=== PATIENT | female | born 1940 | race Caucasian/White ===

== ENCOUNTER 2017-09-28 08:00 | Outpatient (CLI) | payer MEDICARE, OTHER ==
[2017-09-28 19:00] LABS: BASOPHILS # (AUTO) 0.1 10^3/uL (0.0-0.1); BASOPHILS % (AUTO) 0.7 %; EOSINOPHILS # (AUTO) 0.2 10^3/uL (0.0-0.7); EOSINOPHILS % (AUTO) 2.6 %; HGB - HEMOGLOBIN 12.6 g/dL (12.0-16.0); LYMPHOCYTES # (AUTO) 1.7 10^3/uL (1.5-3.5); LYMPHOCYTES % (AUTO) 21.6 %; MEAN CORPUSCULAR HEMOGLOBIN 29.8 pg (27.0-31.0); MEAN CORPUSCULAR VOLUME 92.9 fL (81.0-99.0); MEAN PLATELET VOLUME 7.7 fL (7.9-10.8); MONOCYTES # (AUTO) 0.4 10^3/uL (0.0-1.0); MONOCYTES % (AUTO) 5.5 %; NEUTROPHILS # (AUTO) 5.4 10^3/uL (1.5-6.6); NEUTROPHILS % (AUTO) 69.6 %; PLT - PLATELET COUNT 277 10^3/uL (130-450); RED BLOOD COUNT 4.23 10^6/uL (4.20-5.40); WHITE BLOOD COUNT 7.7 x10^3/uL (4.8-10.8)
[2017-09-28 19:25] LABS: ALBUMIN 4.1 g/dL (3.2-5.5); ALBUMIN/GLOBULIN RATIO 1.6 (1.0-2.2); ALKALINE PHOSPHATASE 51 IU/L (42-121); ALT ALANINE AMINOTRANSFERASE 12 IU/L (10-60); AST ASPARTATE AMINOTRANSFERASE 14 IU/L (10-42); BILIRUBIN,TOTAL 0.4 mg/dL (0.2-1.0); BUN - BLOOD UREA NITROGEN 10 mg/dL (6-20); CALCIUM 9.1 mg/dL (8.5-10.3); CARBON DIOXIDE - CO2 27 mmol/L (21-32); CHLORIDE 108 mmol/L (101-111); CHOL/HDL RATIO 2.9 (<4.4); CHOLESTEROL 154 mg/dL; CREATININE 0.6 mg/dL (0.4-1.0); GFR - MDRD 97 (>89); GLUCOSE 102 mg/dL (70-100); HDL CHOLESTEROL 53 mg/dL; LDL CHOLESTEROL,CALCULATED 73 mg/dL; LDL/HDL RATIO 1.4 (<4.4); SODIUM 142 mmol/L (135-145); TOTAL PROTEIN 6.7 g/dL (6.7-8.2); VLDL CHOLESTEROL 28 mg/dL
[2017-09-28 19:29] LABS: THYROID STIMULATING HORMONE < 0.08 uIU/mL (0.34-5.60)
[2017-09-28 19:36] LABS: HEMOGLOBIN A1C 0.88 g/dL; HEMOGLOBIN A1C % 7.9 % (4.6-6.2)
[2017-09-28 20:21] LABS: FREE T4 (FREE THYROXINE) 1.08 ng/dL (0.58-1.64)
== END 2017-09-28 08:01 | disposition home or self-care (01) ==
LOC: LAB.WCP 08:00
PROVIDERS: ATTEND Family Medicine
DX: I73.9 Peripheral vascular disease, unspecified (principal); I65.29 Occlusion and stenosis of unspecified carotid artery; I10 Essential (primary) hypertension; E11.9 Type 2 diabetes mellitus without complications; J44.9 Chronic obstructive pulmonary disease, unspecified
CPT/HCPCS: 36415; 80053; 80061; 82043; 83036; 83721; 84439; 84443; 85025

== ENCOUNTER 2017-12-07 16:53 | Outpatient (CLI) | payer MEDICARE, OTHER ==
--- NOTE | 2017-12-08 09:32 | Ultrasound Report ---
EXAM: PELVIC ULTRASOUND EXAM DATE: 12/07/2017 06:17 PM. CLINICAL HISTORY: Follow-up left ovarian cyst. History of right oophorectomy. COMPARISON: None. TECHNIQUE: Realtime transabdominal pelvic scan performed to identify the uterus and adnexa and as an overview of other pelvic structures, followed by transvaginal scan to provide greater detail of the u terus and adnexa, with static image documentation. FINDINGS: Uterus: 6.3 x 3.3 x 2.5 cm, volume 27 cc. Retroverted position. Normal overall size and echotexture. Masses: There is a fundal intramural fibroid measuring 0.8 x 0.6 x 0.5 cm. Endometrium: 2.1 mm. Normal. Cervix: Unremarkable. Right Ovary: Surgically absent. No right adnexal mass visualized. Left Ovary: 5.3 x 4.1 x 3.8 cm, volume 43 cc. Normal echotexture and blood flow. There is a left ovar mary jo simple cyst measuring 4.1 x 3.9 x 5.1 cm. Free Fluid: None. Other: None. IMPRESSION: 1. Left ovarian simple cyst measuring up to 5.1 cm in diameter. Annual ultrasound follow-up is recomm ended for a postmenopausal patient per [employer] of [employer] in Ultrasound guidelines. 2. Status post right oophorectomy by history. No right adnexal mass visualized. 3. A single subcentimeter intramural fibroid is visualized. [facility] Referring Provider Line: [phone] SITE ID: [id number]
== END 2017-12-07 16:54 | disposition home or self-care (01) ==
LOC: DI 16:53
PROVIDERS: ATTEND Family Medicine
DX: N83.292 Other ovarian cyst, left side (principal); D25.1 Intramural leiomyoma of uterus; Z90.721 Acquired absence of ovaries, unilateral
CPT/HCPCS: 76830; 76856

== ENCOUNTER 2017-12-27 08:00 | Outpatient (CLI) | payer MEDICARE, OTHER ==
[2017-12-27 12:45] LABS: ALBUMIN 4.1 g/dL (3.2-5.5); ALBUMIN/GLOBULIN RATIO 1.4 (1.0-2.2); BILIRUBIN,TOTAL 0.5 mg/dL (0.2-1.0); CALCIUM 9.6 mg/dL (8.5-10.3); CREATININE 0.6 mg/dL (0.4-1.0); TOTAL PROTEIN 7.1 g/dL (6.7-8.2)
[2017-12-27 12:57] LABS: HB2 TOTAL 14.7 g/dL; HEMOGLOBIN A1C 0.99 g/dL; HEMOGLOBIN A1C % 8.3 % (4.6-6.2)
== END 2017-12-27 08:01 ==
LOC: LAB.WCP 08:00
PROVIDERS: ATTEND Family Medicine
DX: H61.23 Impacted cerumen, bilateral (principal); E11.9 Type 2 diabetes mellitus without complications; I10 Essential (primary) hypertension; J44.9 Chronic obstructive pulmonary disease, unspecified
CPT/HCPCS: 36415; 80053; 83036

== ENCOUNTER 2018-01-23 15:39 | Outpatient (CLI) | payer MEDICARE, OTHER ==
--- NOTE | 2018-01-30 09:36 | Ultrasound Report ---
Procedure Date: 01/24/2018 Accession Number: [id number] / [id number] Procedure: US - Duplex Lwr Ext Arterial Bilat CPT Code: FULL RESULT: EXAM: BILATERAL LOWER EXTREMITY ARTERIAL DOPPLER ULTRASOUND EXAM DATE: 01/23/2018 04:42 PM. CLINICAL HISTORY: Peripheral vascular disease, claudication bilateral. COMPARISON: None. TECHNIQUE: Real-time sonographic vascular imaging was performed by the bobbin loose end finder, utilizing color-flow, Doppler flow, and spectral analysis. Multiple area representative static images were saved for review. FINDINGS: Right lower extremity: Within the mid femoral artery there is a focal stenosis due to what appears to be soft plaque causing approximately 50% stenosis by ordaz scale and color Doppler (series 1 images 11 and 12). However, velocity increases at this point to 370 cm/s suggesting greater than 50% stenosis by spectral Doppler. Multifocal calcific plaque is present throughout the remainder of the right lower extremity arteries without evidence of additional significant focal stenosis. There is abnormal monophasic waveform in the dorsalis pedis artery on the right which appears low resistance, suggesting possible inflammation or infection of the right lower extremity. Left lower extremity: Normal waveforms and velocity throughout the visualized arteries. No evidence of a significant (>50%) focal stenosis with multifocal soft and calcific plaque present. Right leg: FARM EQUIPMENT MECHANIC: PSV 101 cm/sec. Biphasic waveform. SFA P: PSV 72 cm/sec. Biphasic waveform. SFA M: PSV 370 cm/sec. Monophasic waveform. SFA D: PSV 98 cm/sec. Biphasic waveform. PFA: PSV 67 cm/sec. Biphasic waveform. Popliteal: PSV 58 cm/sec. Biphasic waveform. NEHEMIAS: PSV 58 cm/sec. Biphasic waveform. ORGANIC LAB WORKER: PSV 64 cm/sec. Biphasic waveform. Peroneal: PSV 45 cm/sec. Biphasic waveform. DPA: PSV 7 cm/sec. Monophasic waveform. Left leg: FARM EQUIPMENT MECHANIC: PSV 123 cm/sec. Biphasic waveform. SFA P: PSV 129 cm/sec. Biphasic waveform. SFA M: PSV 115 cm/sec. Monophasic waveform. SFA D: PSV 153 cm/sec. Biphasic waveform. PFA: PSV 74 cm/sec. Biphasic waveform. Popliteal: PSV 91 cm/sec. Biphasic waveform. NEHEMIAS: PSV 59 cm/sec. Biphasic waveform. ORGANIC LAB WORKER: PSV 84 cm/sec. Biphasic waveform. Peroneal: PSV 37 cm/sec. Biphasic waveform. DPA: PSV 37 cm/sec. Biphasic waveform. IMPRESSION: 1. Focal soft plaque in the mid right femoral artery causing greater than 50% stenosis by spectral Doppler, though appearing 50% or less by color and grayscale ultrasound. 2. Slow flow in the right dorsalis pedis artery with abnormal monophasic waveform either due to the poor flow or possible inflammation or infection. 3. No evidence of a significant stenosis of the left lower extremity arteries. [facility]
== END 2018-01-23 15:40 | disposition home or self-care (01) ==
LOC: DI 15:39
PROVIDERS: ATTEND Family Medicine
DX: I70.201 Unspecified atherosclerosis of native arteries of extremities, right leg (principal)
CPT/HCPCS: 93925

== ENCOUNTER 2018-01-28 08:11 | Emergency (ER) | payer MEDICARE, OTHER ==
[2018-01-28 08:52] LABS: BILIRUBIN,URINE NEGATIVE (NEGATIVE); GLUCOSE, URINE (UA) NEGATIVE (NEGATIVE); KETONES,URINE (UA) NEGATIVE (NEGATIVE); LEUKOCYTE ESTERASE, URINE SMALL (NEGATIVE); NITRITE,URINE NEGATIVE (NEGATIVE); OCCULT BLOOD,URINE NEGATIVE (NEGATIVE); PROTEIN,URINE NEGATIVE (NEGATIVE); UROBILINOGEN,URINE 0.2 (NORMAL) E.U./dL (NORMAL)
[2018-01-28 08:54] LABS: BASOPHILS # (AUTO) 0.1 10^3/uL (0.0-0.1); BASOPHILS % (AUTO) 0.8 %; EOSINOPHILS # (AUTO) 0.3 10^3/uL (0.0-0.7); HGB - HEMOGLOBIN 12.8 g/dL (12.0-16.0); LYMPHOCYTES # (AUTO) 1.3 10^3/uL (1.5-3.5); MEAN CORPUSCULAR HEMOGLOBIN 30.3 pg (27.0-31.0); MEAN CORPUSCULAR HGB CONC 32.6 g/dL (32.0-36.0); MEAN PLATELET VOLUME 7.2 fL (7.9-10.8); MONOCYTES # (AUTO) 0.8 10^3/uL (0.0-1.0); MONOCYTES % (AUTO) 5.3 %; NEUTROPHILS % (AUTO) 82.9 %; PLT - PLATELET COUNT 249 10^3/uL (130-450); RED BLOOD COUNT 4.23 10^6/uL (4.20-5.40); RED CELL DISTRIBUTION WIDTH 13.3 % (12.0-15.0); WHITE BLOOD COUNT 14.5 x10^3/uL (4.8-10.8)
--- NOTE | 2018-01-28 08:57 | ED Physician Documentation ---
History of Present Illness - Stated complaint Stated Complaint: H/A - Chief complaint Chief Complaint: General - Additonal information Additional information: hx from pt 77 female to ER with invol jerking movements all night affected all limbs not rigors no fever not seizures no new meds or changing meds no DUQUE CP AP no fever baseline cough no abd pain urinary feq not new no focal numbness or weakness no fall diabetic and FDBD was 70s this AM hx same sx with UTI and needed admit in Jul 2017 in [place] sx were present all night but resolved now Review of Systems Constitutional: denies: Fever, Chills Cardiac: denies: Chest pain / pressure Respiratory: reports: Cough (baseline). denies: Dyspnea GI: denies: Abdominal Pain : reports: Frequency. denies: Dysuria Neurologic: denies: Focal weakness, Numbness, Headache, Head injury Endocrine: reports: Easy bruising / bleeding (plavix and asa) Immunocompromised: denies: Immunocompromised PD PAST MEDICAL HISTORY - Past Medical History Past Medical History: Yes Cardiovascular: Hypertension, High cholesterol Endocrine/Autoimmune: Type 2 diabetes Musculoskeletal: Osteoarthritis - Present Medications Home Medications: Ambulatory Orders Medication Instructions Recorded Confirmed Aspirin [Adult Aspirin] 81 mg 01/28/18 Cephalexin [Keflex] 500 mg PO Q6H #28 capsule 01/28/18 Clopidogrel [Plavix] 75 mg 01/28/18 Insulin Glargine [Lantus Solostar] 100 unit 01/28/18 Lisinopril 2.5 mg 01/28/18 Oxybutynin [Ditropan] 5 mg 01/28/18 - Allergies Allergies/Adverse Reactions: Allergies Allergy/AdvReac Type Severity Reaction Status Date / Time sulfamethoxazole AdvReac Severe Anaphylaxis Verified 01/28/18 08:20 [From Bactrim] trimethoprim [From Bactrim] AdvReac Severe Anaphylaxis Verified 01/28/18 08:20 - Social History Does the pt smoke?: No Smoking Status: Never smoker Does the pt drink ETOH?: No Does the pt have substance abuse?: No PD ED PE NORMAL - Vitals Vital signs reviewed: Yes - General General: Alert and oriented X 3 - HEENT HEENT: PERRL - Neck Neck: Supple, no meningeal sign - Cardiac Cardiac: RRR - Respiratory Respiratory: No respiratory distress, Clear bilaterally - Abdomen Abdomen: Soft - Derm Derm: Normal color - Neuro Neuro: Alert and oriented X 3, kardex clerk 2-12 intact, No motor deficit, No sensory deficit, Normal speech, Other Eye Opening: Spontaneous Motor: Obeys Commands Verbal: Oriented GCS Score: 15 Results - Vitals Vitals: Vital Signs - 24 hr 01/28/18 01/28/18 08:15 09:48 Temperature 36.2 C L Heart Rate 92 74 Respiratory 16 16 Rate Blood Pressure 126/75 141/88 H O2 Saturation 97 98 Oxygen O2 Source Room air - Labs Labs: Laboratory Tests 01/28/18 01/28/18 01/28/18 08:38 08:44 08:44 WBC 14.5 H RBC 4.23 Hgb 12.8 Hct 39.3 MCV 93.0 MCH 30.3 MCHC 32.6 RDW 13.3 Plt Count 249 MPV 7.2 L Neut # (Auto) 12.0 H Lymph # (Auto) 1.3 L Toole # (Auto) 0.8 Eos # (Auto) 0.3 Baso # (Auto) 0.1 Absolute Nucleated RBC 0.00 Nucleated RBC % 0.0 Manual Slide Review Indicated Platelet Estimate NORMAL (130-450,000) Platelet Morphology NORMAL APPEARANCE RBC Morph Micro Appear NORMAL APPEARANCE Sodium 138 Potassium 3.5 Chloride 103 Carbon Dioxide 27 Anion Gap 8.0 BUN 11 Creatinine 0.6 Estimated GFR (MDRD) 97 Glucose 84 POC Whole Bld Glucose Calcium 9.4 Troponin I Urine Color YELLOW Urine Clarity HAZY Urine pH 6.0 Ur Specific [place] 1.015 Urine Protein NEGATIVE Urine Glucose (UA) NEGATIVE Urine Ketones NEGATIVE Urine Occult Blood NEGATIVE Urine Nitrite NEGATIVE Urine Bilirubin NEGATIVE Urine Urobilinogen 0.2 (NORMAL) Ur Leukocyte Esterase SMALL H Urine RBC 0-5 Urine WBC 11-25 H Ur Squamous Epith Cells MOD Squamous H Urine Bacteria Few Ur Microscopic Review INDICATED Urine Culture Comments NOT INDICATED 01/28/18 01/28/18 01/28/18 08:44 09:59 11:10 WBC RBC Hgb Hct MCV MCH MCHC RDW Plt Count MPV Neut # (Auto) Lymph # (Auto) Toole # (Auto) Eos # (Auto) Baso # (Auto) Absolute Nucleated RBC Nucleated RBC % Manual Slide Review Platelet Estimate Platelet Morphology RBC Morph Micro Appear Sodium Potassium Chloride Carbon Dioxide Anion Gap BUN Creatinine Estimated GFR (MDRD) Glucose POC Whole Bld Glucose 78 115 H Calcium Troponin I < 0.04 Urine Color Urine Clarity Urine pH Ur Specific Republic Urine Protein Urine Glucose (UA) Urine Ketones Urine Occult Blood Urine Nitrite Urine Bilirubin Urine Urobilinogen Ur Leukocyte Esterase Urine RBC Urine WBC Ur Squamous Epith Cells Urine Bacteria Ur Microscopic Review Urine Culture Comments PD MEDICAL DECISION MAKING - ED course ED course: sx subsided labs fine except probable UTI and slightly low blood sugar - given food was admitted for similar befor but at this point afebrile, nl BP and HR, does not appear spetic ect, feel safe to dc on ab for UTI with daughter to help care for her - Sepsis Event Vital Signs: Vital Signs - 24 hr 01/28/18 01/28/18 08:15 09:48 Temperature 36.2 C L Heart Rate 92 74 Respiratory 16 16 Rate Blood Pressure 126/75 141/88 H O2 Saturation 97 98 Oxygen O2 Source Room air Departure - Departure Disposition: 01 Home, Self Care Clinical Impression: UTI (urinary tract infection) Qualifiers: Urinary tract infection type: site unspecified Hematuria presence: without hematuria Qualified Code(s): N39.0 - Urinary tract infection, site not specified Condition: Good Instructions: ED UTI Cystitis Female Follow-Up: Gianfranco Castro MD [Primary Care Provider] - (this week for a recheck unless completely better) Prescriptions: Cephalexin [Keflex] 500 mg PO Q6H #28 capsule Comments: Please watch your blood sugar carefully - you were a little it low when you arrived in the ER today which may have contributed to your symptoms. Please follow up with Dr Castro for a recheck this week unless completely better
[2018-01-28 09:01] LABS: CALCIUM 9.4 mg/dL (8.5-10.3); CREATININE 0.6 mg/dL (0.4-1.0)
[2018-01-28 09:02] LABS: CLARITY,URINE HAZY (CLEAR)
[2018-01-28 09:11] LABS: BACTERIA,URINE Few /HPF (None Seen); RBC,URINE 0-5 /HPF (0-5); SQUAMOUS EPITHELIAL CELL,UR MOD Squamous (<= Few)
[2018-01-28 09:13] LABS: PLATELET ESTIMATE, MANUAL NORMAL (130-450,000) (NORMAL); PLATELET MORPHOLOGY NORMAL APPEARANCE (NORMAL); RBC MORPHOLOGY (MULTIPLE) NORMAL APPEARANCE (NORMAL)
[2018-01-28] MEDS ORDERED: cephALEXin 250 MG CAPSULE PO STA (09:53)
[2018-01-28 11:33] VITALS: BP 109/78
== END 2018-01-28 11:34 | disposition home or self-care (01) ==
LOC: ED 08:11
DX: N39.0 Urinary tract infection, site not specified (principal); E11.9 Type 2 diabetes mellitus without complications; I10 Essential (primary) hypertension; E78.00 Pure hypercholesterolemia, unspecified; M19.90 Unspecified osteoarthritis, unspecified site; Z79.82 Long term (current) use of aspirin; Z79.02 Long term (current) use of antithrombotics/antiplatelets
CPT/HCPCS: 36415; 80048; 81001; 84484; 85025; 99283; A9270; 81003; 87086

== ENCOUNTER 2018-03-24 10:50 | Outpatient (CLI) | payer MEDICARE, OTHER ==
[2018-03-24 19:40] LABS: HB2 TOTAL 13.6 g/dL; HEMOGLOBIN A1C 0.88 g/dL; HEMOGLOBIN A1C % 8.1 % (4.6-6.2)
[2018-03-24 19:57] LABS: ALBUMIN 3.8 g/dL (3.2-5.5); ALBUMIN/GLOBULIN RATIO 1.2 (1.0-2.2); BILIRUBIN,TOTAL 0.6 mg/dL (0.2-1.0); CALCIUM 9.2 mg/dL (8.5-10.3); CREATININE 0.6 mg/dL (0.4-1.0); TOTAL PROTEIN 6.9 g/dL (6.7-8.2)
== END 2018-03-24 10:51 | disposition home or self-care (01) ==
LOC: LAB.WCP 10:50
PROVIDERS: ATTEND Family Medicine
DX: I73.9 Peripheral vascular disease, unspecified (principal); E11.9 Type 2 diabetes mellitus without complications; J44.9 Chronic obstructive pulmonary disease, unspecified
CPT/HCPCS: 36415; 80053; 82043; 83036

== ENCOUNTER → 2018-06-26 | Outpatient (CLI) | payer MEDICARE, OTHER ==
[2018-06-26 13:34] LABS: HB2 TOTAL 13.8 g/dL; HEMOGLOBIN A1C 0.84 g/dL; HEMOGLOBIN A1C % 7.7 % (4.6-6.2)
[2018-06-26 13:38] LABS: ALBUMIN 3.9 g/dL (3.2-5.5); ALBUMIN/GLOBULIN RATIO 1.3 (1.0-2.2); ALKALINE PHOSPHATASE 74 IU/L (42-121); ALT ALANINE AMINOTRANSFERASE < 10 IU/L (10-60); AST ASPARTATE AMINOTRANSFERASE 13 IU/L (10-42); BILIRUBIN,TOTAL 0.5 mg/dL (0.2-1.0); BUN - BLOOD UREA NITROGEN 13 mg/dL (6-20); CALCIUM 9.3 mg/dL (8.5-10.3); CARBON DIOXIDE - CO2 29 mmol/L (21-32); CHLORIDE 107 mmol/L (101-111); CREATININE 0.6 mg/dL (0.4-1.0); GFR - MDRD 97 (>89); GLUCOSE 147 mg/dL (70-100); SODIUM 141 mmol/L (135-145)
== END ==
LOC: LAB.WCP 09:42
PROVIDERS: ATTEND Family Medicine
DX: I73.9 Peripheral vascular disease, unspecified (principal); E11.9 Type 2 diabetes mellitus without complications; I10 Essential (primary) hypertension
CPT/HCPCS: 36415; 80053; 83036

== ENCOUNTER 2018-09-14 10:55 | Outpatient (CLI) | payer MEDICARE, OTHER ==
[2018-09-14 19:15] LABS: CREATININE,URINE 97.7 mg/dL; MICROALBUM/CREATININE RATIO,UR 3.1 ug/mg (<30.0); MICROALBUMIN,URINE 0.3 mg/dL (0-300.0)
[2018-09-14 19:45] LABS: ALBUMIN 4.1 g/dL (3.2-5.5); ALBUMIN/GLOBULIN RATIO 1.5 (1.0-2.2); ALKALINE PHOSPHATASE 73 IU/L (42-121); ALT ALANINE AMINOTRANSFERASE 12 IU/L (10-60); AST ASPARTATE AMINOTRANSFERASE 17 IU/L (10-42); BILIRUBIN,TOTAL 0.4 mg/dL (0.2-1.0); BUN - BLOOD UREA NITROGEN 18 mg/dL (6-20); CALCIUM 9.4 mg/dL (8.5-10.3); CARBON DIOXIDE - CO2 26 mmol/L (21-32); CHLORIDE 107 mmol/L (101-111); CHOL/HDL RATIO 2.8 (<4.4); CHOLESTEROL 171 mg/dL; CREATININE 0.5 mg/dL (0.4-1.0); GFR - MDRD 119 (>89); GLUCOSE 159 mg/dL (70-100); HDL CHOLESTEROL 61 mg/dL; LDL CHOLESTEROL,CALCULATED 87 mg/dL; LDL/HDL RATIO 1.4 (<4.4); SODIUM 138 mmol/L (135-145); TOTAL PROTEIN 6.8 g/dL (6.7-8.2); VLDL CHOLESTEROL 23 mg/dL
[2018-09-14 19:56] LABS: HB2 TOTAL 13.7 g/dL; HEMOGLOBIN A1C 0.83 g/dL; HEMOGLOBIN A1C % 7.7 % (4.6-6.2)
== END 2018-09-14 23:59 | disposition home or self-care (01) ==
LOC: LAB.WCP 10:55
PROVIDERS: ATTEND Family Medicine
DX: E11.9 Type 2 diabetes mellitus without complications (principal); I10 Essential (primary) hypertension; I73.9 Peripheral vascular disease, unspecified
CPT/HCPCS: 36415; 80053; 80061; 82043; 82570; 83036; 83721; 84443

== ENCOUNTER 2018-09-16 12:42 | Emergency (ER) | payer MEDICARE, OTHER ==
--- NOTE | 2018-09-16 13:18 | ED Physician Documentation ---
PD HPI LOWER EXT INJURY - Stated complaint Stated Complaint: RT PINKY TOE - Chief complaint Chief Complaint: Ext Problem - History obtained from History obtained from: Patient - History of Present Illness PD HPI LOW EXT INJURY LOCATION: Right, Toe (little) Type of injury: Twist (caught toe and it got bent sideways. It is crooked now and tender.) Where injury occurred: Home Timing - onset: Yesterday Timing - details: Abrupt onset, Still present Worsened by: Moving, Palpating Associated symptoms: No: Weakness, Numbness Similar symptoms before: Has not had sx before Recently seen: Not recently seen Review of Systems Skin: denies: Abrasion (s), Laceration (s) Neurologic: denies: Focal weakness, Numbness PD PAST MEDICAL HISTORY - Past Medical History Cardiovascular: Hypertension, High cholesterol Endocrine/Autoimmune: Type 2 diabetes Musculoskeletal: Osteoarthritis - Present Medications Home Medications: Ambulatory Orders Medication Instructions Recorded Confirmed Clopidogrel [Plavix] 75 mg PO DAILY 01/28/18 09/16/18 Insulin Glargine [Lantus Solostar] 100 unit SQ DAILY 01/28/18 09/16/18 RX: Aspirin [Adult Aspirin] 81 mg PO DAILY 01/28/18 09/16/18 RX: Lisinopril 2.5 mg PO DAILY 01/28/18 09/16/18 RX: Oxybutynin [Ditropan] 5 mg PO DAILY 01/28/18 09/16/18 - Allergies Allergies/Adverse Reactions: Allergies Allergy/AdvReac Type Severity Reaction Status Date / Time sulfamethoxazole AdvReac Severe Anaphylaxis Verified 01/28/18 08:20 [From Bactrim] trimethoprim [From Bactrim] AdvReac Severe Anaphylaxis Verified 09/16/18 12:47 - Social History Does the pt smoke?: No Smoking Status: Never smoker Does the pt drink ETOH?: No Does the pt have substance abuse?: No PD ED PE NORMAL - Vitals Vital signs reviewed: Yes - General General: Alert and oriented X 3, No acute distress, Well developed/nourished - Derm Derm: Normal color, Warm and dry - Extremities Extremities: Other (little toe with tenderness at proximal portion and has lateral angulation about 30 degrees. It moves to midline easily without much pressure. Normal sensation. ) Results - Vitals Vitals: Vital Signs - 24 hr 09/16/18 09/16/18 12:46 14:55 Temperature 36.4 C L Heart Rate 81 79 Respiratory 20 16 Rate Blood Pressure 141/87 H 160/75 H O2 Saturation 95 98 Oxygen O2 Source Room air - Rads (name of study) toe xray Radiology: Prelim report reviewed (proximal phalanx shaft fracture. ) PD MEDICAL DECISION MAKING - ED course Complexity details: reviewed results, considered differential, d/w patient Departure - Departure Disposition: 01 Home, Self Care Clinical Impression: Toe fracture, right Condition: Stable Record reviewed to determine appropriate education?: Yes Instructions: ED Fx Toe Closed Follow-Up: Gianfranco Castro MD [Primary Care Provider] - Comments: Raheem tape and firm soled shoe to help lessen toe movement. Tylenol or ibuprofen if needed for pains. Follow-up with your primary care in about a week and a half to ensure its healing well enough and does not need further intervention so it heals a little straighter and not in the way. Discharge Date/Time: 09/16/18 14:57
--- NOTE | 2018-09-16 14:16 | XRAY Report ---
Reason: struck toe and it is bent/painful Procedure Date: 09/16/2018 Accession Number: [id number] / [id number] Procedure: XR - Toe(s) RT CPT Code: FULL RESULT: EXAM: RIGHT TOE RADIOGRAPHY EXAM DATE: 09/16/2018 02:05 PM. CLINICAL HISTORY: Struck toe and it is bent/painful. COMPARISON: None. TECHNIQUE: 3 views. FINDINGS: Bones: Oblique fracture through the proximal phalanx of the fifth toe. No intra-articular extension. Joints: No dislocation. Soft Tissues: Soft tissue swelling about the fifth toe. IMPRESSION: Oblique fracture through the proximal phalanx of the fifth toe [facility]
[2018-09-16 14:57] VITALS: BP 160/75
== END 2018-09-16 14:57 | disposition home or self-care (01) ==
LOC: ED 12:42
DX: S92.511A Displaced fracture of proximal phalanx of right lesser toe(s), initial encounter for closed fracture (principal); W18.40XA Slipping, tripping and stumbling without falling, unspecified, initial encounter; X50.9XXA Other and unspecified overexertion or strenuous movements or postures, initial encounter; E11.9 Type 2 diabetes mellitus without complications; I10 Essential (primary) hypertension; E78.00 Pure hypercholesterolemia, unspecified; Z79.82 Long term (current) use of aspirin; Z79.4 Long term (current) use of insulin
CPT/HCPCS: 73660; 99282; 99283

== ENCOUNTER 2018-12-18 15:58 | Outpatient (CLI) | payer MEDICARE, OTHER ==
--- NOTE | 2018-12-19 11:11 | Ultrasound Report ---
Reason: PERIPHERAL VASCULAR DISEASE Procedure Date: 12/18/2018 Accession Number: [id number] / [id number] Procedure: US - Duplex Lwr Ext Arterial Bilat CPT Code: FULL RESULT: EXAM: Bilateral Lower Extremity Arterial Doppler Ultrasound EXAM DATE: 12/18/2018 04:50 PM. CLINICAL HISTORY: Peripheral arterial disease with abnormal vascular supply on prior examinations. COMPARISON: DUPLEX LWR EXT ARTERIAL BILAT 01/23/2018 3:47 PM. TECHNIQUE: Real-time sonographic vascular imaging was performed by the paste mixer, utilizing color-flow, Doppler flow, and spectral analysis. Multiple applications sales representative static images were saved for review. FINDINGS: Grayscale evaluation of the right lower extremity vasculature demonstrates diffuse atherosclerotic disease echogenic and hypoechoic soft plaque type. Color Doppler demonstrates the right common femoral, deep femoral, superficial femoral, popliteal, anterior tibial and posterior tibial arteries as well as the peroneal artery and dorsalis pedis artery to be patent. Brisk systolic arterial upstrokes are preserved throughout the right lower extremity. Grayscale evaluation of the left lower extremity vasculature demonstrates objectively mild to moderate diffuse atherosclerotic disease of both the echogenic and hypoechoic type. Spectral Doppler demonstrates preserved brisk systolic upstrokes in the left common femoral, deep femoral, superficial femoral, popliteal, anterior and posterior tibial arteries as well as the peroneal artery. Right Lower Extremity: CP BLEACHER OPERATOR: PSV 112 cm/sec. PSFA: PSV 92 cm/sec. MSFA: PSV 98 cm/sec. DSFA: PSV 93 cm/sec. PFA: PSV 131 cm/sec. POP: PSV 66 cm/sec. NEHEMIAS: PSV 35 cm/sec. STATION CLEANING PORTER: PSV 51 cm/sec. MARCELO: PSV 43 cm/sec. DPA: PSV 16 cm/sec. Left Lower Extremity: CP BLEACHER OPERATOR: PSV 154 cm/sec. PSFA: PSV 75 cm/sec. MSFA: PSV 144 cm/sec. DSFA: PSV 134 cm/sec. PFA: PSV 71 cm/sec. POP: PSV 65 cm/sec. NEHEMIAS: PSV 66 cm/sec. STATION CLEANING PORTER: PSV 47 cm/sec. MARCELO: PSV 48 cm/sec. DPA: PSV 34 cm/sec. IMPRESSION: Bilateral diffuse atherosclerotic disease with preservation of brisk systolic upstrokes and no focal deterioration of the waveforms to suggest hemodynamically significant focal stenosis. Brisk bilateral inflow waveform upstrokes are not suggestive of hemodynamically significant obstructive inflow disease. [facility]
== END 2018-12-18 15:59 | disposition home or self-care (01) ==
LOC: DI 15:58
PROVIDERS: ATTEND Physician Assistant Medical
DX: I70.203 Unspecified atherosclerosis of native arteries of extremities, bilateral legs (principal)
CPT/HCPCS: 93925

== ENCOUNTER 2019-04-17 08:00 | Outpatient (CLI) | payer MEDICARE, OTHER ==
[2019-04-17 12:30] LABS: BASOPHILS # (AUTO) 0.1 10^3/uL (0.0-0.1); BASOPHILS % (AUTO) 0.5 %; EOSINOPHILS # (AUTO) 0.3 10^3/uL (0.0-0.7); EOSINOPHILS % (AUTO) 3.2 %; LYMPHOCYTES # (AUTO) 1.3 10^3/uL (1.5-3.5); LYMPHOCYTES % (AUTO) 13.9 %; MEAN CORPUSCULAR HEMOGLOBIN 31.6 pg (27.0-31.0); MEAN CORPUSCULAR HGB CONC 32.5 g/dL (32.0-36.0); MEAN CORPUSCULAR VOLUME 97.3 fL (81.0-99.0); MEAN PLATELET VOLUME 9.6 fL (7.9-10.8); MONOCYTES # (AUTO) 0.5 10^3/uL (0.0-1.0); MONOCYTES % (AUTO) 5.3 %; NEUTROPHILS # (AUTO) 7.4 10^3/uL (1.5-6.6); NEUTROPHILS % (AUTO) 76.6 %; PLT - PLATELET COUNT 259 10^3/uL (130-450); RED BLOOD COUNT 4.11 10^6/uL (4.20-5.40); RED CELL DISTRIBUTION WIDTH 12.8 % (12.0-15.0); WHITE BLOOD COUNT 9.7 x10^3/uL (4.8-10.8)
[2019-04-17 13:04] LABS: ALBUMIN 3.9 g/dL (3.2-5.5); ALBUMIN/GLOBULIN RATIO 1.4 (1.0-2.2); BILIRUBIN,TOTAL 0.5 mg/dL (0.2-1.0); CALCIUM 8.9 mg/dL (8.5-10.3); CREATININE 0.5 mg/dL (0.4-1.0); TOTAL PROTEIN 6.6 g/dL (6.7-8.2)
[2019-04-17 14:52] LABS: HEMOGLOBIN A1C 0.84 g/dL; HEMOGLOBIN A1C % 8.1 % (4.6-6.2)
== END 2019-04-17 23:59 | disposition home or self-care (01) ==
LOC: LAB.WCP 08:00
PROVIDERS: ATTEND Family Medicine
DX: I73.9 Peripheral vascular disease, unspecified (principal); I10 Essential (primary) hypertension; E11.9 Type 2 diabetes mellitus without complications; J44.9 Chronic obstructive pulmonary disease, unspecified
CPT/HCPCS: 36415; 80053; 83036; 84443; 85025

== ENCOUNTER 2019-09-20 07:00 | Outpatient (CLI) | payer MEDICARE, OTHER ==
[2019-09-20 18:25] LABS: BASOPHILS # (AUTO) 0.1 10^3/uL (0.0-0.1); BASOPHILS % (AUTO) 0.7 %; EOSINOPHILS # (AUTO) 0.3 10^3/uL (0.0-0.7); EOSINOPHILS % (AUTO) 3.2 %; HGB - HEMOGLOBIN 13.1 g/dL (12.0-16.0); LYMPHOCYTES # (AUTO) 1.8 10^3/uL (1.5-3.5); MEAN CORPUSCULAR HEMOGLOBIN 30.8 pg (27.0-31.0); MEAN CORPUSCULAR HGB CONC 31.3 g/dL (32.0-36.0); MEAN CORPUSCULAR VOLUME 98.6 fL (81.0-99.0); MEAN PLATELET VOLUME 9.6 fL (7.9-10.8); MONOCYTES # (AUTO) 0.6 10^3/uL (0.0-1.0); MONOCYTES % (AUTO) 6.9 %; NEUTROPHILS # (AUTO) 5.6 10^3/uL (1.5-6.6); NEUTROPHILS % (AUTO) 67.8 %; PLT - PLATELET COUNT 277 10^3/uL (130-450); RED BLOOD COUNT 4.25 10^6/uL (4.20-5.40); RED CELL DISTRIBUTION WIDTH 12.4 % (12.0-15.0); WHITE BLOOD COUNT 8.3 x10^3/uL (4.8-10.8)
[2019-09-20 18:46] LABS: HB2 TOTAL 13.3 g/dL; HEMOGLOBIN A1C 0.86 g/dL; HEMOGLOBIN A1C % 8.1 % (4.6-6.2)
[2019-09-20 18:49] LABS: ALBUMIN 4.1 g/dL (3.2-5.5); ALBUMIN/GLOBULIN RATIO 1.5 (1.0-2.2); ALKALINE PHOSPHATASE 62 IU/L (42-121); ALT ALANINE AMINOTRANSFERASE 12 IU/L (10-60); AST ASPARTATE AMINOTRANSFERASE 15 IU/L (10-42); BILIRUBIN,TOTAL 0.7 mg/dL (0.2-1.0); BUN - BLOOD UREA NITROGEN 12 mg/dL (6-20); CALCIUM 9.1 mg/dL (8.5-10.3); CARBON DIOXIDE - CO2 25 mmol/L (21-32); CHLORIDE 106 mmol/L (101-111); CHOL/HDL RATIO 2.8 (<4.4); CHOLESTEROL 193 mg/dL; CREATININE 0.6 mg/dL (0.4-1.0); GFR - MDRD 96 (>89); GLUCOSE 167 mg/dL (70-100); HDL CHOLESTEROL 69 mg/dL; LDL CHOLESTEROL,CALCULATED 94 mg/dL; LDL/HDL RATIO 1.4 (<4.4); SODIUM 142 mmol/L (135-145); TOTAL PROTEIN 6.8 g/dL (6.7-8.2); VLDL CHOLESTEROL 30 mg/dL
== END 2019-09-20 23:59 | disposition home or self-care (01) ==
LOC: LAB.WCP 07:00
PROVIDERS: ATTEND Family Medicine
DX: I10 Essential (primary) hypertension (principal); G62.9 Polyneuropathy, unspecified; K21.9 Gastro-esophageal reflux disease without esophagitis; E11.9 Type 2 diabetes mellitus without complications; E78.5 Hyperlipidemia, unspecified
CPT/HCPCS: 36415; 80053; 80061; 83036; 83721; 85025

== ENCOUNTER 2019-12-24 10:30 | Outpatient (CLI) | payer MEDICARE, OTHER ==
[2019-12-24 13:36] LABS: CALCIUM 9.1 mg/dL (8.5-10.3); CREATININE 0.5 mg/dL (0.4-1.0)
[2019-12-24 13:58] LABS: CREATININE,URINE 128.2 mg/dL; MICROALBUMIN,URINE 0.9 mg/dL (0-300.0)
[2019-12-24 14:47] LABS: HB2 TOTAL 13.8 g/dL; HEMOGLOBIN A1C 0.9 g/dL; HEMOGLOBIN A1C % 8.1 % (4.6-6.2)
== END 2019-12-24 23:59 | disposition home or self-care (01) ==
LOC: LAB.WCP 10:30
PROVIDERS: ATTEND Family Medicine
DX: E11.9 Type 2 diabetes mellitus without complications (principal); I10 Essential (primary) hypertension
CPT/HCPCS: 36415; 80048; 82043; 82570; 83036

== ENCOUNTER 2022-07-01 10:53 | Outpatient (CLI) | payer MEDICARE, OTHER ==
[2022-07-01 11:10] LABS: BASOPHILS # (AUTO) 0.1 10^3/uL (0.0-0.1); BASOPHILS % (AUTO) 0.6 %; EOSINOPHILS # (AUTO) 0.2 10^3/uL (0.0-0.7); EOSINOPHILS % (AUTO) 1.8 %; HCT - HEMATOCRIT 43.6 % (37.0-47.0); HGB - HEMOGLOBIN 14.2 g/dL (12.0-16.0); LYMPHOCYTES # (AUTO) 1.4 10^3/uL (1.5-3.5); LYMPHOCYTES % (AUTO) 15.7 %; MEAN CORPUSCULAR HEMOGLOBIN 30.9 pg (27.0-31.0); MEAN CORPUSCULAR HGB CONC 32.6 g/dL (32.0-36.0); MEAN CORPUSCULAR VOLUME 94.8 fL (81.0-99.0); MONOCYTES # (AUTO) 0.5 10^3/uL (0.0-1.0); MONOCYTES % (AUTO) 5.3 %; NEUTROPHILS # (AUTO) 6.8 10^3/uL (1.5-6.6); NEUTROPHILS % (AUTO) 76.2 %; PLT - PLATELET COUNT 293 10^3/uL (130-450); RED CELL DISTRIBUTION WIDTH 11.9 % (12.0-15.0); WHITE BLOOD COUNT 8.9 x10^3/uL (4.8-10.8)
[2022-07-01 11:35] LABS: ESTIMATED AVERAGE GLUCOSE 197 mg/dL (70-100); HEMOGLOBIN A1c% 8.5 % (4.27-6.07)
[2022-07-01 11:42] LABS: THYROID STIMULATING HORMONE 0.07 uIU/mL (0.34-5.60)
[2022-07-01 11:50] LABS: ALBUMIN/GLOBULIN RATIO 1.3 (1.0-2.2); ALKALINE PHOSPHATASE 66 IU/L (42-121); ALT ALANINE AMINOTRANSFERASE 13 IU/L (10-60); AST ASPARTATE AMINOTRANSFERASE 13 IU/L (10-42); BILIRUBIN,TOTAL 0.8 mg/dL (0.2-1.0); BUN - BLOOD UREA NITROGEN 18 mg/dL (6-20); CALCIUM 9.5 mg/dL (8.5-10.3); CARBON DIOXIDE - CO2 27 mmol/L (21-32); CHLORIDE 105 mmol/L (101-111); CHOL/HDL RATIO 3.9 (<4.4); CHOLESTEROL 235 mg/dL; CREATININE 0.6 mg/dL (0.4-1.0); GFR - MDRD 96 (>89); GLUCOSE 306 mg/dL (70-100); HDL CHOLESTEROL 61 mg/dL; LDL CHOLESTEROL,CALCULATED 148 mg/dL; LDL/HDL RATIO 2.4 (<4.4); POTASSIUM 4.5 mmol/L (3.5-5.0); SODIUM 141 mmol/L (135-145); TRIGLYCERIDES 132 mg/dL; VLDL CHOLESTEROL 26 mg/dL
[2022-07-01 12:27] LABS: FREE T4 (FREE THYROXINE) 1.31 ng/dL (0.58-1.64)
== END 2022-07-01 10:54 | disposition home or self-care (01) ==
LOC: LAB 10:53
PROVIDERS: ATTEND Physician Assistant
DX: I10 Essential (primary) hypertension (principal); E11.9 Type 2 diabetes mellitus without complications; E78.5 Hyperlipidemia, unspecified
CPT/HCPCS: 36415; 80053; 80061; 83036; 83721; 84439; 84443; 85025

== ENCOUNTER 2022-08-19 18:37 | Outpatient (CLI) | payer MEDICARE, OTHER ==
--- NOTE | 2022-08-20 10:41 | Ultrasound Report ---
PROCEDURE: Abdomen Complete INDICATIONS: RLQ ABD PAIN TECHNIQUE: Real-time scanning was performed of the abdominal and retroperitoneal organs, with image documentatio n. COMPARISON: None. FINDINGS: Liver: Liver length of 13.4 cm. Echogenic. Gallbladder: Surgically absent. Biliary ducts: Possible mild intrahepatic ductal dilation. Extrahepatic bile duct caliber measures 1 2 mm. Normal is 6-7 mm or less in diameter, or 10 mm or less post-cholecystectomy. Pancreas: Borderline/minimal dilation of the main pancreatic duct at the pancreatic body measuring 4 mm. Spleen: Spleen is normal in size and homogeneous in echotexture. Kidneys: Kidneys are normal in size and echotexture. Right kidney measures 10.6 cm long; left kidne y measures 10.9 cm long. No hydronephrosis. 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 Aorta: Visualized aorta is normal in caliber at less than 3 cm. Iliacs: Not visualized due to bowel gas. IVC: Intrahepatic inferior vena cava is patent. Miscellaneous: No free abdominal fluid. IMPRESSION: 1. Prior cholecystectomy. 2. Extrahepatic biliary ductal dilation. While this may be related to postcholecystectomy state, dahlia elation with patient's symptoms and laboratory markers for biliary obstruction may be helpful. 3. Borderline/minimal dilation of the main pancreatic duct. 4. Could consider gastroenterology consultation to direct further management of the above biliary and pancreatic findings, endoscopic evaluation or MRCP could be obtained as clinically indicated. 5. The liver is echogenic, a nonspecific finding commonly seen in the setting of steatosis. 6. A 1.2 cm structure at the right upper kidney is nonspecific but could represent a small angiomyoli sumaya. Reviewed by: Denny Calhoun MD on 08/20/2022 10:40 AM PST Approved by: Denny Calhoun MD on 08/20/2022 10:40 AM PST Station ID: [id number]
== END 2022-08-19 18:38 | disposition home or self-care (01) ==
LOC: DI 18:37
PROVIDERS: ATTEND Physician Assistant
DX: K86.89 Other specified diseases of pancreas (principal); Z90.49 Acquired absence of other specified parts of digestive tract

== ENCOUNTER 2022-10-01 12:11 | Outpatient (CLI) | payer MEDICARE, OTHER | END 2022-10-01 12:12 | disposition critical access hospital (66) | LOC: EMS 12:11 | DX: R53.1 Weakness (principal) | CPT/HCPCS: A0425; A0429 ==

== ENCOUNTER 2022-10-01 12:26 | Emergency (ER) | payer MEDICARE, OTHER ==
--- NOTE | 2022-10-01 12:42 | ED Physician Documentation ---
History of Present Illness - Stated complaint Stated Complaint: GEN WEAKNESS - History obtained from History obtained from: Patient, EMS - History of Present Illness Timing: How many weeks ago (8) Pain level max: 0 Pain level now: 0 - Additonal information Additional information: 82-year-old female presents to the emergency department stating that she has had increasing weakness over the past 2 months. Usually uses a walker but today was unable to walk unassisted. She states that she is on medication at home but does not know what they are. She states that she has a history of diabetes. She does not know any other medical history. She denies any falls or trauma. Denies any pain. Nothing makes it better or worse. Usually walks with a walker. No fevers. No chills. No chest pain. No shortness of breath. No abdominal pain. No vomiting. No diarrhea. No dysuria. No focal neurological deficits. She has not talked to her doctor about her weakness over the past 2 months. Review of Systems Constitutional: denies: Fever, Chills Nose: denies: Rhinorrhea / runny nose, Congestion Throat: denies: Sore throat Cardiac: denies: Chest pain / pressure, Palpitations Respiratory: denies: Cough GI: denies: Abdominal Pain, Vomiting, Diarrhea : denies: Dysuria, Frequency, Hesitancy Skin: denies: Rash Musculoskeletal: denies: Neck pain, Back pain Neurologic: reports: Generalized weakness. denies: Focal weakness, Numbness, Confused, Altered mental status, Headache PD PAST MEDICAL HISTORY - Past Medical History Cardiovascular: Hypertension, High cholesterol Endocrine/Autoimmune: Type 2 diabetes Musculoskeletal: Osteoarthritis - Past Surgical History Past Surgical History: Yes General: Cholecystectomy, Appendectomy Cardiovascular: Other - Present Medications Home Medications: Ambulatory Orders Medication Instructions Recorded Confirmed Aspirin [Adult Aspirin] 81 mg PO DAILY 01/28/18 09/16/18 Clopidogrel [Plavix] 75 mg PO DAILY 01/28/18 09/16/18 Insulin Glargine [Lantus Solostar] 100 unit SQ DAILY 01/28/18 09/16/18 Oxybutynin [Ditropan] 5 mg PO DAILY 01/28/18 09/16/18 lisinopriL [Lisinopril] 2.5 mg PO DAILY 01/28/18 09/16/18 - Allergies Allergies/Adverse Reactions: Allergies Allergy/AdvReac Type Severity Reaction Status Date / Time sulfamethoxazole AdvReac Severe Anaphylaxis Verified 01/28/18 08:20 [From Bactrim] trimethoprim [From Bactrim] AdvReac Severe Anaphylaxis Verified 09/16/18 12:47 - Social History Does the pt smoke?: No Smoking Status: Never smoker Does the pt drink ETOH?: No Does the pt have substance abuse?: No PD ED PE NORMAL - Vitals Vital signs reviewed: Yes - General General: Alert and oriented X 3, No acute distress, Well developed/nourished - HEENT HEENT: PERRL, Moist mucous membranes - Neck Neck: Supple, no meningeal sign - Cardiac Cardiac: RRR, Strong equal pulses - Respiratory Respiratory: No respiratory distress, Clear bilaterally - Abdomen Abdomen: Soft, Non tender, Non distended - Back Back: No CVA TTP, No spinal TTP - Derm Derm: Warm and dry - Extremities Extremities: No edema, No calf tenderness / cord - Neuro Neuro: Alert and oriented X 3, rn bariatric 2-12 intact, No motor deficit, No sensory deficit, Normal speech Eye Opening: Spontaneous Motor: Obeys Commands Verbal: Oriented GCS Score: 15 - Psych Psych: Normal mood, Normal affect Results - Vitals Vitals: Vital Signs - 24 hr 10/01/22 10/01/22 10/01/22 12:36 14:41 16:00 Temperature 36.9 C 37.1 C Heart Rate 68 84 100 Respiratory 18 18 18 Rate Blood Pressure 150/57 H 137/66 H 127/73 O2 Saturation 99 100 100 Oxygen O2 Source Room air - EKG (time done) 1257 Rate: Rate (enter#) (72) Rhythm: NSR Thurman: Normal Intervals: RBBB - Labs Labs: Laboratory Tests 10/01/22 10/01/22 10/01/22 12:51 13:47 13:47 WBC 9.8 RBC 4.74 Hgb 14.3 Hct 45.1 MCV 95.1 MCH 30.2 MCHC 31.7 L RDW 12.2 Plt Count 218 MPV 9.3 Neut # (Auto) 8.5 H Lymph # (Auto) 0.4 L [place] # (Auto) 0.8 Eos # (Auto) 0.0 Baso # (Auto) 0.0 Absolute Nucleated RBC 0.00 Nucleated RBC % 0.0 Sodium 134 L Potassium 4.1 Chloride 100 L Carbon Dioxide 25 Anion Gap 9.0 BUN 13 Creatinine 0.7 Estimated GFR (MDRD) 80 L Glucose 199 H Calcium 9.1 Total Bilirubin 0.7 AST 17 ALT 15 Alkaline Phosphatase 69 Troponin I High Sens 6.8 Total Protein 7.4 Albumin 4.1 Globulin 3.3 Albumin/Globulin Ratio 1.2 Lipase 28 Urine Color Urine Clarity Urine pH Ur Specific [place] Urine Protein Urine Glucose (UA) Urine Ketones Urine Occult Blood Urine Nitrite Urine Bilirubin Urine Urobilinogen Ur Leukocyte Esterase Ur Microscopic Review Urine Culture Comments Nasal Adenovirus (PCR) Nasal B. parapertussis DNA (PCR) Nasal Coronavir 229E PCR Nasal Coronavir HKU1 PCR Nasal Coronavir NL63 PCR Nasal Coronavir OC43 PCR Nasal Enterovir/Rhinovir PCR Nasal Influenza B PCR Nasal Influenza A PCR Nasal Parainfluen 1 PCR Nasal Parainfluen 2 PCR Nasal Parainfluen 3 PCR Nasal Parainfluen 4 PCR Nasal RSV (PCR) Nasal B.pertussis DNA PCR Nasal C.pneumoniae (PCR) Rusty Human Metapneumo PCR Nasal M.pneumoniae (PCR) Nasal SARS-CoV-2 (PCR) 10/01/22 10/01/22 14:04 15:31 WBC RBC Hgb Hct MCV MCH MCHC RDW Plt Count MPV Neut # (Auto) Lymph # (Auto) [place] # (Auto) Eos # (Auto) Baso # (Auto) Absolute Nucleated RBC Nucleated RBC % Sodium Potassium Chloride Carbon Dioxide Anion Gap BUN Creatinine Estimated GFR (MDRD) Glucose Calcium Total Bilirubin AST ALT Alkaline Phosphatase Troponin I High Sens Total Protein Albumin Globulin Albumin/Globulin Ratio Lipase Urine Color YELLOW Urine Clarity CLEAR Urine pH 6.0 Ur Specific [place] >=1.030 H Urine Protein NEGATIVE Urine Glucose (UA) 250 H Urine Ketones TRACE Urine Occult Blood NEGATIVE Urine Nitrite NEGATIVE Urine Bilirubin NEGATIVE Urine Urobilinogen 0.2 (NORMAL) Ur Leukocyte Esterase NEGATIVE Ur Microscopic Review NOT INDICATED Urine Culture Comments NOT INDICATED Nasal Adenovirus (PCR) NOT DETECTED Nasal B. parapertussis DNA (PCR) NOT DETECTED Nasal Coronavir 229E PCR NOT DETECTED Nasal Coronavir HKU1 PCR NOT DETECTED Nasal Coronavir NL63 PCR NOT DETECTED Nasal Coronavir OC43 PCR NOT DETECTED Nasal Enterovir/Rhinovir PCR NOT DETECTED Nasal Influenza B PCR NOT DETECTED Nasal Influenza A PCR NOT DETECTED Nasal Parainfluen 1 PCR NOT DETECTED Nasal Parainfluen 2 PCR NOT DETECTED Nasal Parainfluen 3 PCR NOT DETECTED Nasal Parainfluen 4 PCR NOT DETECTED Nasal RSV (PCR) NOT DETECTED Nasal B.pertussis DNA PCR NOT DETECTED Nasal C.pneumoniae (PCR) NOT DETECTED Rusty Human Metapneumo PCR NOT DETECTED Nasal M.pneumoniae (PCR) NOT DETECTED Nasal SARS-CoV-2 (PCR) DETECTED A PD Medical Decision Making - ED course Complexity details: reviewed results, re-evaluated patient, considered kunal keaton, d/w patient, d/w family ED course: 82-year-old female presents to the emergency department with generalized weakness. Her CBC does not show any acute significant abnormalities. Her chemistry is significant for a mildly elevated glucose and a minimal hyponatremia. Negative high-sensitivity troponin. Urinalysis shows concentrated urine, consistent with dehydration. No evidence of infection. Her respiratory swab is positive for COVID. Patient was given IV fluids. She ate and drink in the emergency department. She is able to ambulate well with a walker, walking down the hallway without assistance and back to her bed. We will place her on molnupiravir for home and have her follow-up with her doctor for further care. No hypoxia. No respiratory distress. Patient and family counseled regarding signs and symptoms for which I believe and urgent re- evaluation would be necessary. Patient with good understanding of and agreement to plan and is comfortable going home at this time This document was made in part using voice recognition software. While efforts are made to proofread this document, sound alike and grammatical errors may occur. Departure - Departure Disposition: 01 Home, Self Care Clinical Impression: COVID-19 Condition: Good Instructions: ED Viral Syndrome Follow-Up: An Sutton PA [Primary Care Provider] - Comments: You have tested positive for COVID today. Please take the molnupiravir as prescribed. Please make sure you are drinking plenty of fluids at home. Please return if you worsen.
--- NOTE | 2022-10-01 13:08 | XRAY Report ---
PROCEDURE: Chest 1 View X-Ray INDICATIONS: weakness TECHNIQUE: One view of the chest was acquired. COMPARISON: None. FINDINGS: Surgical changes and devices: None. Lungs and pleura: No pleural effusions or pneumothorax. Lungs are clear. Mediastinum: Mediastinal contours appear normal. Mild cardiomegaly. Bones and chest wall: No suspicious bony lesions. Overlying soft tissues appear unremarkable. IMPRESSION: Mild cardiomegaly. No evidence acute pulmonary process. Reviewed by: Andrzej Woods MD on 10/01/2022 1:06 PM [facility] Approved by: Andrzej Woods MD on 10/01/2022 1:06 PM [facility] Station ID: [id number]
[2022-10-01 13:52] LABS: BASOPHILS % (AUTO) 0.4 %; EOSINOPHILS % (AUTO) 0.2 %; HCT - HEMATOCRIT 45.1 % (37.0-47.0); HGB - HEMOGLOBIN 14.3 g/dL (12.0-16.0); LYMPHOCYTES # (AUTO) 0.4 10^3/uL (1.5-3.5); LYMPHOCYTES % (AUTO) 3.8 %; MEAN CORPUSCULAR HEMOGLOBIN 30.2 pg (27.0-31.0); MEAN CORPUSCULAR HGB CONC 31.7 g/dL (32.0-36.0); MEAN CORPUSCULAR VOLUME 95.1 fL (81.0-99.0); MEAN PLATELET VOLUME 9.3 fL (7.9-10.8); MONOCYTES # (AUTO) 0.8 10^3/uL (0.0-1.0); NEUTROPHILS # (AUTO) 8.5 10^3/uL (1.5-6.6); NEUTROPHILS % (AUTO) 87.2 %; PLT - PLATELET COUNT 218 10^3/uL (130-450); RED BLOOD COUNT 4.74 10^6/uL (4.20-5.40); RED CELL DISTRIBUTION WIDTH 12.2 % (12.0-15.0); WHITE BLOOD COUNT 9.8 x10^3/uL (4.8-10.8)
[2022-10-01 14:07] LABS: ALBUMIN 4.1 g/dL (3.2-5.5); ALBUMIN/GLOBULIN RATIO 1.2 (1.0-2.2); BILIRUBIN,TOTAL 0.7 mg/dL (0.2-1.0); CALCIUM 9.1 mg/dL (8.5-10.3); CREATININE 0.7 mg/dL (0.4-1.0); POTASSIUM 4.1 mmol/L (3.5-5.0); TOTAL PROTEIN 7.4 g/dL (6.7-8.2)
[2022-10-01 14:12] LABS: BILIRUBIN,URINE NEGATIVE (NEGATIVE); GLUCOSE, URINE (UA) 250 mg/dL (NEGATIVE); KETONES,URINE (UA) TRACE mg/dL (NEGATIVE); LEUKOCYTE ESTERASE, URINE NEGATIVE (NEGATIVE); NITRITE,URINE NEGATIVE (NEGATIVE); OCCULT BLOOD,URINE NEGATIVE (NEGATIVE); PROTEIN,URINE NEGATIVE (NEGATIVE); UROBILINOGEN,URINE 0.2 (NORMAL) E.U./dL (NORMAL)
[2022-10-01 14:19] LABS: CLARITY,URINE CLEAR (CLEAR)
[2022-10-01] MEDS ORDERED: SODIUM CHLORIDE 0.9% 1,000 ML IV STA (14:20)
[2022-10-01 16:37] LABS: CORONAVIRUS 229E-RESP PCR NOT DETECTED; CORONAVIRUS HKU1-RESP PCR NOT DETECTED; CORONAVIRUS NL63-RESP PCR NOT DETECTED; CORONAVIRUS OC43-RESP PCR NOT DETECTED; SARS-CoV-2 -RESP PCR PANEL DETECTED
[2022-10-01 16:38] LABS: B. PARAPERTUSSIS- RESP PCR PAN NOT DETECTED; B. PERTUSSIS- RESP PCR PANEL NOT DETECTED; C. PNEUMONIAE- RESP PCR PANEL NOT DETECTED; HUMAN METAPNEUMOVIRUS NOT DETECTED; INFLUENZA A- RESP PCR PANEL NOT DETECTED; INFLUENZA B - RESP PCR PANEL NOT DETECTED; M. PNEUMONIAE- RESP PCR PANEL NOT DETECTED; PARAINFLUENZA VIRUS 1 NOT DETECTED; PARAINFLUENZA VIRUS 2 NOT DETECTED; PARAINFLUENZA VIRUS 3 NOT DETECTED; PARAINFLUENZA VIRUS 4 NOT DETECTED; RHINOVIRUS/ENTEROVIRUS NOT DETECTED; RSV- RESP PCR PANEL NOT DETECTED
[2022-10-01] MEDS ORDERED: MOLNUPIRAVIR PREPACK PO STA (17:08)
[2022-10-01 17:27] VITALS: BP 135/59
== END 2022-10-01 17:27 | disposition home or self-care (01) ==
LOC: EDUNIT# → SUPCPDRO 12:26 → ED 12:26
DX: U07.1 COVID-19 (principal)
CPT/HCPCS: 36415; 71045; 80053; 81003; 83690; 84484; 85025; 87633; 93005; 96360; 99283; 99284; J3490; 81001; 87086

== ENCOUNTER 2022-10-09 17:52 | Emergency (ER) | payer MEDICARE, OTHER ==
[2022-10-09] MEDS ORDERED: diphenhydrAMINE 25 MG CAPSULE PO STA (18:17)
--- NOTE | 2022-10-09 18:19 | ED Physician Documentation ---
History of Present Illness - Stated complaint Stated Complaint: UNCONTROLED MOVEMENT - Chief complaint Chief Complaint: General - History obtained from History obtained from: Patient, Family - Additonal information Additional information: 82-year-old woman presents accompanied by her daughter by private vehicle for the evaluation of tremor for starting last night. She feels shaky. It is not associated with chills, or fevers. The last time she had this it was related to urinary infection. She had COVID a little over a week ago and was treated with molnupiravir. She has a cough but it is not worse than usual. PD PAST MEDICAL HISTORY - Past Medical History Past Medical History: Yes Cardiovascular: Hypertension, High cholesterol Respiratory: COPD Endocrine/Autoimmune: Type 2 diabetes Musculoskeletal: Osteoarthritis - Past Surgical History Past Surgical History: Yes General: Cholecystectomy, Appendectomy Cardiovascular: Other - Present Medications Home Medications: Ambulatory Orders Medication Instructions Recorded Confirmed Aspirin [Adult Aspirin] 81 mg PO DAILY 01/28/18 09/16/18 Clopidogrel [Plavix] 75 mg PO DAILY 01/28/18 09/16/18 Insulin Glargine [Lantus Solostar] 100 unit SQ DAILY 01/28/18 09/16/18 Oxybutynin [Ditropan] 5 mg PO DAILY 01/28/18 09/16/18 lisinopriL [Lisinopril] 2.5 mg PO DAILY 01/28/18 09/16/18 Amoxicillin 2 tab PO TID #30 cap 10/09/22 Azithromycin [Zithromax] 1 tab PO DAILY #4 tab 10/09/22 - Allergies Allergies/Adverse Reactions: Allergies Allergy/AdvReac Type Severity Reaction Status Date / Time sulfamethoxazole AdvReac Severe Anaphylaxis Verified 10/09/22 18:05 [From Bactrim] trimethoprim [From Bactrim] AdvReac Severe Anaphylaxis Verified 10/09/22 18:05 - Social History Does the pt smoke?: No Smoking Status: Never smoker Does the pt drink ETOH?: No Does the pt have substance abuse?: No - POLST Patient has POLST: No PD ED PE NORMAL - Vitals Vital signs reviewed: Yes - General General: Alert and oriented X 3, No acute distress - HEENT HEENT: PERRL, EOMI - Neck Neck: Supple, no meningeal sign, No bony TTP - Cardiac Cardiac: RRR, No murmur - Respiratory Respiratory: No respiratory distress, Other (Rhonchorous breath sounds throughout.) - Abdomen Abdomen: Non tender - Back Back: No CVA TTP, No spinal TTP - Derm Derm: Normal color, Warm and dry - Neuro Neuro: Alert and oriented X 3, Normal speech, Other (There is a fine tremor of the hands, symmetric that she can briefly control. Motor strength throughout is normal.) Eye Opening: Spontaneous Motor: Obeys Commands Verbal: Oriented GCS Score: 15 - Psych Psych: Normal mood, Normal affect Results - Vitals Vitals: Vital Signs - 24 hr 10/09/22 10/09/22 10/09/22 17:56 18:05 20:05 Temperature 36.7 C 36.7 C 36.8 C Heart Rate 64 64 66 Respiratory 20 20 18 Rate Blood Pressure 137/65 H 137/65 H 130/62 O2 Saturation 97 97 98 Oxygen O2 Source Room air - Labs Labs: Laboratory Tests 10/09/22 10/09/22 10/09/22 18:18 18:33 18:33 WBC 8.1 RBC 4.25 Hgb 12.8 Hct 39.9 MCV 93.9 MCH 30.1 MCHC 32.1 RDW 12.0 Plt Count 305 MPV 9.0 Neut # (Auto) 4.9 Lymph # (Auto) 2.5 [facility] # (Auto) 0.5 Eos # (Auto) 0.2 Baso # (Auto) 0.0 Absolute Nucleated RBC 0.00 Nucleated RBC % 0.0 Sodium 139 Potassium 3.8 Chloride 103 Carbon Dioxide 26 Anion Gap 10.0 BUN 16 Creatinine 0.6 Estimated GFR (MDRD) 96 Glucose 156 H Calcium 9.0 TSH Free T4 1.08 Free T3 pg/mL 3.04 Urine Color Urine Clarity Urine pH Ur Specific [place] Urine Protein Urine Glucose (UA) Urine Ketones Urine Occult Blood Urine Nitrite Urine Bilirubin Urine Urobilinogen Ur Leukocyte Esterase Ur Microscopic Review Urine Culture Comments 10/09/22 10/09/22 18:33 19:39 WBC RBC Hgb Hct MCV MCH MCHC RDW Plt Count MPV Neut # (Auto) Lymph # (Auto) [facility] # (Auto) Eos # (Auto) Baso # (Auto) Absolute Nucleated RBC Nucleated RBC % Sodium Potassium Chloride Carbon Dioxide Anion Gap BUN Creatinine Estimated GFR (MDRD) Glucose Calcium TSH 0.14 L Free T4 Free T3 pg/mL Urine Color YELLOW Urine Clarity CLEAR Urine pH 6.0 Ur Specific [place] 1.010 Urine Protein NEGATIVE Urine Glucose (UA) NEGATIVE Urine Ketones NEGATIVE Urine Occult Blood NEGATIVE Urine Nitrite NEGATIVE Urine Bilirubin NEGATIVE Urine Urobilinogen 0.2 (NORMAL) Ur Leukocyte Esterase NEGATIVE Ur Microscopic Review NOT INDICATED Urine Culture Comments NOT INDICATED - Rads (name of study) Single view chest x-ray demonstrates left basilar atelectasis versus infiltrate Radiology: Final report received, EMP read indepedently PD Medical Decision Making - ED course ED course: 82-year-old woman presents with tremulousness. It is bilateral and therefore would not be a central phenomenon. Her TSH was low but free T4 and T3 were normal also not a thyroid issue. CBC and BMP were normal. Urinalysis normal. She had similar issues in the past with an infection and there is a suggestion of a pneumonia on chest x-ray so presume that is the nidus of her new tremors and we will treat with high-dose amoxicillin and azithromycin. Departure - Departure Disposition: 01 Home, Self Care Clinical Impression: Pneumonia Condition: Good Record reviewed to determine appropriate education?: Yes Instructions: Pneumonia Dc Prescriptions: Amoxicillin 2 tab PO TID #30 cap Azithromycin [Zithromax] 1 tab PO DAILY #4 tab Comments: Given that you had a had a similar tremor before with infections, we had a strong suspicion for an infection this time. Your urine is normal, but you do have a left lower lobe pneumonia. I am starting antibiotics for this. We would like you to see your doctor Tuesday or Tuesday for recheck. Return for new or worsening symptoms. Discharge Date/Time: 10/09/22 20:34
[2022-10-09 18:38] LABS: BASOPHILS % (AUTO) 0.5 %; EOSINOPHILS # (AUTO) 0.2 10^3/uL (0.0-0.7); HCT - HEMATOCRIT 39.9 % (37.0-47.0); HGB - HEMOGLOBIN 12.8 g/dL (12.0-16.0); LYMPHOCYTES # (AUTO) 2.5 10^3/uL (1.5-3.5); LYMPHOCYTES % (AUTO) 30.2 %; MEAN CORPUSCULAR HEMOGLOBIN 30.1 pg (27.0-31.0); MEAN CORPUSCULAR HGB CONC 32.1 g/dL (32.0-36.0); MEAN CORPUSCULAR VOLUME 93.9 fL (81.0-99.0); MONOCYTES # (AUTO) 0.5 10^3/uL (0.0-1.0); MONOCYTES % (AUTO) 6.2 %; NEUTROPHILS # (AUTO) 4.9 10^3/uL (1.5-6.6); NEUTROPHILS % (AUTO) 59.7 %; PLT - PLATELET COUNT 305 10^3/uL (130-450); RED BLOOD COUNT 4.25 10^6/uL (4.20-5.40); WHITE BLOOD COUNT 8.1 x10^3/uL (4.8-10.8)
--- NOTE | 2022-10-09 18:51 | XRAY Report ---
PROCEDURE: Chest 1 View X-Ray INDICATIONS: cough TECHNIQUE: One view of the chest was acquired. COMPARISON: None. FINDINGS: Surgical changes and devices: None. Lungs and pleura: Left basilar atelectasis and or infiltrate. Right lung and pleural spaces Mediastinum: Mediastinal contours appear normal. Heart size is normal. Bones and chest wall: No suspicious bony lesions. Overlying soft tissues appear unremarkable. IMPRESSION: Left basilar atelectasis and or infiltrate Reviewed by: Ang Gallegos MD on 10/09/2022 5:49 PM [facility] Approved by: Ang Gallegos MD on 10/09/2022 5:49 PM [facility] Station ID: [id number]
[2022-10-09 18:53] LABS: CREATININE 0.6 mg/dL (0.4-1.0); POTASSIUM 3.8 mmol/L (3.5-5.0)
[2022-10-09 19:53] LABS: BILIRUBIN,URINE NEGATIVE (NEGATIVE); GLUCOSE, URINE (UA) NEGATIVE (NEGATIVE); KETONES,URINE (UA) NEGATIVE (NEGATIVE); LEUKOCYTE ESTERASE, URINE NEGATIVE (NEGATIVE); NITRITE,URINE NEGATIVE (NEGATIVE); OCCULT BLOOD,URINE NEGATIVE (NEGATIVE); PROTEIN,URINE NEGATIVE (NEGATIVE); UROBILINOGEN,URINE 0.2 (NORMAL) E.U./dL (NORMAL)
[2022-10-09 19:57] LABS: CLARITY,URINE CLEAR (CLEAR)
[2022-10-09 20:06] LABS: FREE T3 3.04 pg/mL (2.5-3.9)
[2022-10-09 20:07] LABS: FREE T4 (FREE THYROXINE) 1.08 ng/dL (0.58-1.64)
[2022-10-09] MEDS ORDERED: AZITHROMYCIN 250 MG TABLET PO STA (20:19)
[2022-10-09] MEDS ORDERED: AMOXICILLIN 250 MG CAPSULE PO STA (20:19)
[2022-10-09 20:30] VITALS: BP 130/62
== END 2022-10-09 20:34 | disposition home or self-care (01) ==
LOC: ED 17:52
DX: J18.9 Pneumonia, unspecified organism (principal)
CPT/HCPCS: 36415; 71045; 80048; 81003; 84439; 84443; 84481; 85025; 99284; A9270; 81001; 87086

== ENCOUNTER 2023-02-01 09:47 | Outpatient (CLI) | payer MEDICARE, OTHER ==
[2023-02-01 10:00] LABS: BASOPHILS % (AUTO) 0.6 %; EOSINOPHILS # (AUTO) 0.2 10^3/uL (0.0-0.7); EOSINOPHILS % (AUTO) 2.1 %; HCT - HEMATOCRIT 41.9 % (37.0-47.0); HGB - HEMOGLOBIN 13.3 g/dL (12.0-16.0); LYMPHOCYTES # (AUTO) 1.7 10^3/uL (1.5-3.5); LYMPHOCYTES % (AUTO) 23.4 %; MEAN CORPUSCULAR HEMOGLOBIN 30.2 pg (27.0-31.0); MEAN CORPUSCULAR HGB CONC 31.7 g/dL (32.0-36.0); MEAN CORPUSCULAR VOLUME 95.2 fL (81.0-99.0); MONOCYTES # (AUTO) 0.4 10^3/uL (0.0-1.0); MONOCYTES % (AUTO) 6.1 %; NEUTROPHILS # (AUTO) 4.9 10^3/uL (1.5-6.6); NEUTROPHILS % (AUTO) 67.7 %; PLT - PLATELET COUNT 283 10^3/uL (130-450); RED CELL DISTRIBUTION WIDTH 12.2 % (12.0-15.0); WHITE BLOOD COUNT 7.2 x10^3/uL (4.8-10.8)
[2023-02-01 10:39] LABS: THYROID STIMULATING HORMONE 0.29 uIU/mL (0.34-5.60)
[2023-02-01 11:16] LABS: FREE T4 (FREE THYROXINE) 0.88 ng/dL (0.58-1.64)
[2023-02-01 12:03] LABS: ESTIMATED AVERAGE GLUCOSE 160 mg/dL (70-100); HEMOGLOBIN A1c% 7.2 % (4.27-6.07)
[2023-02-01 20:31] LABS: ALBUMIN 3.9 g/dL (3.2-5.5); ALBUMIN/GLOBULIN RATIO 1.3 (1.0-2.2); ALKALINE PHOSPHATASE 66 IU/L (42-121); ALT ALANINE AMINOTRANSFERASE 14 IU/L (10-60); AST ASPARTATE AMINOTRANSFERASE 14 IU/L (10-42); BILIRUBIN,TOTAL 0.6 mg/dL (0.2-1.0); BUN - BLOOD UREA NITROGEN 18 mg/dL (6-20); CALCIUM 9.2 mg/dL (8.5-10.3); CARBON DIOXIDE - CO2 29 mmol/L (21-32); CHLORIDE 107 mmol/L (101-111); CHOL/HDL RATIO 3.9 (<4.4); CHOLESTEROL 256 mg/dL; CREATININE 0.6 mg/dL (0.4-1.0); GFR - MDRD 96 (>89); GLUCOSE 172 mg/dL (70-100); HDL CHOLESTEROL 66 mg/dL; LDL CHOLESTEROL,CALCULATED 159 mg/dL; LDL/HDL RATIO 2.4 (<4.4); POTASSIUM 4.5 mmol/L (3.5-5.0); SODIUM 143 mmol/L (135-145); TRIGLYCERIDES 153 mg/dL; VLDL CHOLESTEROL 31 mg/dL
== END 2023-02-01 09:48 | disposition home or self-care (01) ==
LOC: LAB 09:47
PROVIDERS: ATTEND Physician Assistant
DX: E11.9 Type 2 diabetes mellitus without complications (principal)
CPT/HCPCS: 36415; 80053; 80061; 83036; 83721; 84439; 84443; 85025

== ENCOUNTER 2023-06-01 09:41 | Outpatient (CLI) | payer MEDICARE, OTHER ==
[2023-06-01 10:14] LABS: BASOPHILS % (AUTO) 0.6 %; EOSINOPHILS # (AUTO) 0.2 10^3/uL (0.0-0.7); EOSINOPHILS % (AUTO) 2.1 %; HCT - HEMATOCRIT 43.9 % (37.0-47.0); HGB - HEMOGLOBIN 14.5 g/dL (12.0-16.0); LYMPHOCYTES # (AUTO) 1.4 10^3/uL (1.5-3.5); LYMPHOCYTES % (AUTO) 19.3 %; MEAN CORPUSCULAR HEMOGLOBIN 31.1 pg (27.0-31.0); MEAN CORPUSCULAR VOLUME 94.2 fL (81.0-99.0); MONOCYTES # (AUTO) 0.4 10^3/uL (0.0-1.0); MONOCYTES % (AUTO) 5.8 %; NEUTROPHILS # (AUTO) 5.2 10^3/uL (1.5-6.6); NEUTROPHILS % (AUTO) 71.9 %; PLT - PLATELET COUNT 283 10^3/uL (130-450); RED BLOOD COUNT 4.66 10^6/uL (4.20-5.40); RED CELL DISTRIBUTION WIDTH 12.1 % (12.0-15.0); WHITE BLOOD COUNT 7.3 x10^3/uL (4.8-10.8)
[2023-06-01 10:34] LABS: CREATININE,URINE 163.9 mg/dL; MICROALBUM/CREATININE RATIO,UR 10.4 ug/mg (<30.0); MICROALBUMIN,URINE 1.7 mg/dL
[2023-06-01 10:35] LABS: ALBUMIN 4.2 g/dL (3.2-5.5); ALBUMIN/GLOBULIN RATIO 1.7 (1.0-2.2); ALKALINE PHOSPHATASE 84 IU/L (42-121); ALT ALANINE AMINOTRANSFERASE 10 IU/L (10-60); AST ASPARTATE AMINOTRANSFERASE 10 IU/L (10-42); BILIRUBIN,TOTAL 0.7 mg/dL (0.2-1.0); BUN - BLOOD UREA NITROGEN 14 mg/dL (6-20); CALCIUM 9.7 mg/dL (8.5-10.3); CARBON DIOXIDE - CO2 28 mmol/L (21-32); CHLORIDE 107 mmol/L (101-111); CHOL/HDL RATIO 4.1 (<4.4); CHOLESTEROL 259 mg/dL; CREATININE 0.6 mg/dL (0.6-1.3); GFR - MDRD 95 (>89); GLUCOSE 232 mg/dL (74-104); HDL CHOLESTEROL 63 mg/dL; LDL CHOLESTEROL,CALCULATED 160 mg/dL; LDL/HDL RATIO 2.5 (<4.4); POTASSIUM 4.7 mmol/L (3.5-4.5); SODIUM 141 mmol/L (135-145); TOTAL PROTEIN 6.7 g/dL (6.4-8.9); TRIGLYCERIDES 179 mg/dL (48-352); VLDL CHOLESTEROL 36 mg/dL
[2023-06-01 10:53] LABS: ESTIMATED AVERAGE GLUCOSE 189 mg/dL (70-100); HEMOGLOBIN A1c% 8.2 % (4.27-6.07)
== END 2023-06-01 09:42 | disposition home or self-care (01) ==
LOC: LAB 09:41
PROVIDERS: ATTEND Physician Assistant
DX: E11.9 Type 2 diabetes mellitus without complications (principal)
CPT/HCPCS: 36415; 80053; 80061; 82043; 82570; 83036; 83721; 84439; 84443; 85025

== ENCOUNTER 2023-06-01 20:25 | Outpatient (CLI) | payer MEDICARE, OTHER ==
--- NOTE | 2023-06-02 20:17 | XRAY Report ---
PROCEDURE: Femur 2V LT INDICATIONS: LEG PAIN,LEFT TECHNIQUE: 4 views of the femur were acquired. COMPARISON: None. FINDINGS: Bones: Evaluation of the femoral head/neck is limited secondary to overlying soft tissue. Within the se limitations, no acute fracture. No dislocation. Anatomic alignment. No suspicious bony lesions. Soft tissues: No suspicious soft tissue calcifications or masses. No soft tissue swelling. Bladder c alcifications. Vascular stent. IMPRESSION: Evaluation of the femoral head/neck is limited secondary to overlying soft tissue. Within these limit ations, no acute fracture. If there is high clinical suspicion for a radiographically occult hip frac ture, consider CT or MRI for further evaluation. Reviewed by: Sirisha Bush MD on 06/02/2023 8:16 PM PDT Approved by: Sirisha Bush MD on 06/02/2023 8:16 PM PDT Station ID: [id number]
== END 2023-06-01 20:26 | disposition home or self-care (01) ==
LOC: DI 20:25
PROVIDERS: ATTEND Physician Assistant
DX: M79.605 Pain in left leg (principal); E11.9 Type 2 diabetes mellitus without complications
CPT/HCPCS: 36415; 80053; 80061; 82043; 82570; 83036; 83721; 84439; 84443; 85025

== ENCOUNTER 2023-06-12 09:08 | Outpatient (CLI) | payer MEDICARE, OTHER ==
--- NOTE | 2023-06-12 11:07 | CT Report ---
PROCEDURE: HEAD WO INDICATIONS: HEAD INJURY TECHNIQUE: Noncontrast 4.5 mm thick angled axial sections acquired from the foramen magnum to the vertex. For r adiation dose reduction, the following was used: automated exposure control, adjustment of mA and/or kV according to patient size. COMPARISON: None. FINDINGS: Image quality: Excellent. CSF spaces: Basal cisterns are patent. No extra-axial fluid collections. There is ventriculomegaly, questionably and upper portion to the amount of sulcal effacement. Brain: No midline shift. No intracranial masses or hemorrhage. Hernandez-white matter interface is norm al. Age-related volume loss. Moderate periventricular hypodensities bilaterally usually representing small vessel ischemic change. Old left basal ganglia lacunar infarction. Skull and face: Calvarium and visualized facial bones are intact, without suspicious lesions. Sinuses: Visualized sinuses and mastoids are clear. IMPRESSION: 1. There is diffuse fine loss and moderate small vessel ischemic change. 2. There is ventriculomegaly which may be at a proportion to the amount of sulcal effacement. Cannot exclude normal pressure hydrocephalus. Consider possible workup for normal pressure hydrocephalus if clinical symptoms warrant. 3. No acute intracranial abnormality. Reviewed by: Andrzej Woods MD on 06/12/2023 11:06 AM PDT Approved by: Andrzej Woods MD on 06/12/2023 11:06 AM PDT Station ID: [id number]
== END 2023-06-12 09:09 | disposition home or self-care (01) ==
LOC: DI 09:08
PROVIDERS: ATTEND Physician Assistant
DX: S09.90XA Unspecified injury of head, initial encounter (principal); I67.82 Cerebral ischemia; G93.89 Other specified disorders of brain; G31.89 Other specified degenerative diseases of nervous system

== ENCOUNTER 2023-07-12 17:54 | Outpatient (CLI) | payer MEDICARE, OTHER ==
[2023-07-12 18:23] LABS: CREATININE 1.2 mg/dL (0.6-1.3)
== END 2023-07-12 17:55 | disposition home or self-care (01) ==
LOC: LAB 17:54
PROVIDERS: ATTEND Physician Assistant
DX: I51.7 Cardiomegaly (principal); S09.90XA Unspecified injury of head, initial encounter
CPT/HCPCS: 36415; 82565

== ENCOUNTER 2023-07-13 17:18 | Outpatient (CLI) | payer MEDICARE, OTHER ==
[~2023-07-13 17:18] MED LIST: GADOTERATE MEGLUMINE 10 MMOL/20 ML VIAL ONE
[2023-07-13] MEDS ORDERED: GADOTERATE MEGLUMINE 10 MMOL/20 ML VIAL IVP ONE (17:42)
--- NOTE | 2023-07-13 20:02 | MRI Report ---
PROCEDURE: BRAIN W/WO INDICATIONS: VENTRICULOMEGALY, HEAD INJURY CONTRAST: CLARISCAN 13.6ML TECHNIQUE: Noncontrast axial T1 spin echo, axial T2 fast spin echo, sagittal and axial FLAIR, coronal T2 fast sp in echo, axial gradient echo, axial diffusion and ADC through the brain. After the administration of contrast, axial and coronal T1 spin echo with fat saturation through the brain. COMPARISON: Correlation is made with head CT, 06/12/2023 FINDINGS: Image quality: Motion artifact is noted. CSF spaces: Basal cisterns are patent. No extra-axial fluid collections. Ventricles are symmetric, yet are enlarged and are more prominent than would be expected, given the degree of sulcal atrophy. Brain: No midline shift. No intracranial bleeds or masses. No abnormal intracranial enhancement. There is cerebral volume loss for age. There is periventricular white matter chronic small vessel is chemic change. The brainstem appears normal. Diffusion-weighted images demonstrate no acute ischemi c insults. No chronic ischemic insults. Normal intravascular flow voids are present. Prominent per ivascular spaces are incidentally noted. Skull and face: Calvarial marrow is normal in signal. Orbits appear normal. Incidental note is ma de of bilateral lens replacements. Sinuses: Sinuses and mastoids appear clear. IMPRESSION: The lateral ventricles are abnormally prominent and are more prominent than would be expected, given the degree of underlying sulcal atrophy. Please consider normal pressure hydrocephalus. No findings of acute or subacute infarction are seen. No prior territorial infarction can be seen. Reviewed by: Que Montesinos MD on 07/13/2023 7:01 PM [facility] Approved by: Que Montesinos MD on 07/13/2023 7:01 PM [facility] Station ID: [id number]
== END 2023-07-13 17:19 | disposition home or self-care (01) ==
LOC: DI 17:18
PROVIDERS: ATTEND Physician Assistant
DX: G93.89 Other specified disorders of brain (principal); S09.90XA Unspecified injury of head, initial encounter
CPT/HCPCS: 70553; A9575

== ENCOUNTER 2023-11-30 08:00 | Outpatient (CLI) | payer MEDICARE, OTHER ==
[2023-11-30 12:25] LABS: ALBUMIN/GLOBULIN RATIO 1.1 (1.0-2.2); BILIRUBIN,TOTAL 0.3 mg/dL (0.2-1.0); CALCIUM 9.4 mg/dL (8.5-10.3); CREATININE 0.5 mg/dL (0.6-1.3); POTASSIUM 3.8 mmol/L (3.5-4.5); TOTAL PROTEIN 5.8 g/dL (6.4-8.9)
[2023-11-30 12:37] LABS: BASOPHILS # (AUTO) 0.1 10^3/uL (0.0-0.1); BASOPHILS % (AUTO) 0.4 %; EOSINOPHILS # (AUTO) 0.6 10^3/uL (0.0-0.7); HCT - HEMATOCRIT 38.8 % (37.0-47.0); HGB - HEMOGLOBIN 12.3 g/dL (12.0-16.0); LYMPHOCYTES # (AUTO) 1.4 10^3/uL (1.5-3.5); LYMPHOCYTES % (AUTO) 12.4 %; MEAN CORPUSCULAR HEMOGLOBIN 30.3 pg (27.0-31.0); MEAN CORPUSCULAR HGB CONC 31.7 g/dL (32.0-36.0); MEAN CORPUSCULAR VOLUME 95.6 fL (81.0-99.0); MEAN PLATELET VOLUME 9.5 fL (7.9-10.8); MONOCYTES # (AUTO) 0.7 10^3/uL (0.0-1.0); MONOCYTES % (AUTO) 6.2 %; NEUTROPHILS # (AUTO) 8.7 10^3/uL (1.5-6.6); NEUTROPHILS % (AUTO) 75.6 %; PLT - PLATELET COUNT 300 10^3/uL (130-450); RED BLOOD COUNT 4.06 10^6/uL (4.20-5.40); RED CELL DISTRIBUTION WIDTH 12.5 % (12.0-15.0); WHITE BLOOD COUNT 11.5 x10^3/uL (4.8-10.8)
[2023-11-30 12:47] LABS: BILIRUBIN,URINE NEGATIVE (NEGATIVE); GLUCOSE, URINE (UA) 100 mg/dL (NEGATIVE); KETONES,URINE (UA) TRACE mg/dL (NEGATIVE); LEUKOCYTE ESTERASE, URINE NEGATIVE (NEGATIVE); NITRITE,URINE POSITIVE (NEGATIVE); OCCULT BLOOD,URINE NEGATIVE (NEGATIVE); PH,URINE 5.5 PH (5.0-7.5); PROTEIN,URINE TRACE mg/dL (NEGATIVE); UROBILINOGEN,URINE 0.2 (NORMAL) E.U./dL (NORMAL)
[2023-11-30 12:57] LABS: CLARITY,URINE CLEAR (CLEAR)
[2023-11-30 13:37] LABS: RBC,URINE 0-5 /HPF (0-5); SQUAMOUS EPITHELIAL CELL,UR MOD Squamous (<= Few); WBC,URINE 0-3 /HPF (0-5)
[2023-11-30 13:38] LABS: BACTERIA,URINE Few /HPF (None Seen)
== END 2023-11-30 23:59 | disposition home or self-care (01) ==
LOC: LAB.R 08:00
PROVIDERS: ATTEND Registered Nurse
DX: E11.9 Type 2 diabetes mellitus without complications (principal); R39.81 Functional urinary incontinence; Z79.02 Long term (current) use of antithrombotics/antiplatelets; G91.9 Hydrocephalus, unspecified
CPT/HCPCS: 80053; 81001; 81003; 85025; 87086

== ENCOUNTER 2024-01-01 08:00 | Outpatient (CLI) | payer MEDICARE, OTHER ==
[2024-01-01 11:33] LABS: BASOPHILS % (AUTO) 0.5 %; EOSINOPHILS # (AUTO) 0.3 10^3/uL (0.0-0.7); EOSINOPHILS % (AUTO) 3.6 %; HCT - HEMATOCRIT 38.5 % (37.0-47.0); HGB - HEMOGLOBIN 12.2 g/dL (12.0-16.0); LYMPHOCYTES # (AUTO) 1.9 10^3/uL (1.5-3.5); LYMPHOCYTES % (AUTO) 22.9 %; MEAN CORPUSCULAR HEMOGLOBIN 30.7 pg (27.0-31.0); MEAN CORPUSCULAR HGB CONC 31.7 g/dL (32.0-36.0); MEAN PLATELET VOLUME 9.4 fL (7.9-10.8); MONOCYTES # (AUTO) 0.4 10^3/uL (0.0-1.0); MONOCYTES % (AUTO) 5.1 %; NEUTROPHILS # (AUTO) 5.7 10^3/uL (1.5-6.6); NEUTROPHILS % (AUTO) 67.7 %; PLT - PLATELET COUNT 246 10^3/uL (130-450); RED BLOOD COUNT 3.97 10^6/uL (4.20-5.40); RED CELL DISTRIBUTION WIDTH 13.5 % (12.0-15.0); WHITE BLOOD COUNT 8.4 x10^3/uL (4.8-10.8)
[2024-01-01 11:45] LABS: ALBUMIN 3.3 g/dL (3.2-5.5); ALBUMIN/GLOBULIN RATIO 1.3 (1.0-2.2); BILIRUBIN,TOTAL 0.3 mg/dL (0.2-1.0); CALCIUM 9.4 mg/dL (8.5-10.3); CREATININE 0.5 mg/dL (0.6-1.3); TOTAL PROTEIN 5.9 g/dL (6.4-8.9)
== END 2024-01-01 23:59 | disposition home or self-care (01) ==
LOC: LAB.R 08:00
PROVIDERS: ATTEND Registered Nurse
DX: I10 Essential (primary) hypertension (principal); I48.20 Chronic atrial fibrillation, unspecified
CPT/HCPCS: 80053; 85025

== ENCOUNTER 2024-02-01 11:18 | Outpatient (CLI) | payer MEDICARE, OTHER ==
[2024-02-01 11:25] LABS: BASOPHILS # (AUTO) 0.1 10^3/uL (0.0-0.1); BASOPHILS % (AUTO) 0.6 %; EOSINOPHILS # (AUTO) 0.3 10^3/uL (0.0-0.7); EOSINOPHILS % (AUTO) 3.6 %; HCT - HEMATOCRIT 37.3 % (37.0-47.0); HGB - HEMOGLOBIN 11.7 g/dL (12.0-16.0); LYMPHOCYTES % (AUTO) 22.5 %; MEAN CORPUSCULAR HEMOGLOBIN 30.3 pg (27.0-31.0); MEAN CORPUSCULAR HGB CONC 31.4 g/dL (32.0-36.0); MEAN CORPUSCULAR VOLUME 96.6 fL (81.0-99.0); MEAN PLATELET VOLUME 9.3 fL (7.9-10.8); MONOCYTES # (AUTO) 0.5 10^3/uL (0.0-1.0); MONOCYTES % (AUTO) 5.5 %; NEUTROPHILS # (AUTO) 5.9 10^3/uL (1.5-6.6); NEUTROPHILS % (AUTO) 67.5 %; PLT - PLATELET COUNT 252 10^3/uL (130-450); RED BLOOD COUNT 3.86 10^6/uL (4.20-5.40); RED CELL DISTRIBUTION WIDTH 13.6 % (12.0-15.0); WHITE BLOOD COUNT 8.8 x10^3/uL (4.8-10.8)
[2024-02-01 11:41] LABS: ALBUMIN 3.3 g/dL (3.2-5.5); ALBUMIN/GLOBULIN RATIO 1.6 (1.0-2.2); BILIRUBIN,TOTAL 0.5 mg/dL (0.2-1.0); CREATININE 0.5 mg/dL (0.6-1.3); POTASSIUM 3.8 mmol/L (3.5-4.5); TOTAL PROTEIN 5.4 g/dL (6.4-8.9)
== END 2024-02-01 11:19 | disposition home or self-care (01) ==
LOC: LAB.R 11:18
PROVIDERS: ATTEND Family Medicine
DX: I10 Essential (primary) hypertension (principal); I48.20 Chronic atrial fibrillation, unspecified
CPT/HCPCS: 80053; 85025

== ENCOUNTER 2024-02-21 20:38 | Outpatient (CLI) | payer MEDICARE, OTHER | END 2024-02-21 20:39 | disposition critical access hospital (66) | LOC: EMS 20:38 | DX: R47.81 Slurred speech (principal); R47.89 Other speech disturbances | CPT/HCPCS: A0425; A0429 ==

== ENCOUNTER 2024-02-21 20:48 | Emergency (ER) | payer MEDICARE, OTHER ==
--- NOTE | 2024-02-21 21:53 | ED Physician Documentation ---
History of Present Illness - Stated complaint Stated Complaint: SPEECH DEFICIT - Chief complaint Chief Complaint: General - History obtained from History obtained from: Patient, Family - History of Present Illness Timing: Yesterday Pain level max: 0 Pain level now: 0 - Additonal information Additional information: 83-year-old female here with her daughter. The patient states that starting 2 days ago she occasionally has a tremor when she tries to lift a spoon to her mouth and feed herself, this is caused some feeding difficulties. She also has had a few occasions where she has trouble getting a word out like she is stuttering. This happens intermittently. Her daughter states that her speech seems slurred earlier today. Feels like her speech is normal now. No numbness or tingling. No focal neurological deficits otherwise. No arm or leg weakness. No head weakness. No facial droop. No recent illnesses. No fevers. No chills. No history of stroke. Does have a history of hydrocephalus. Is on Plavix for peripheral arterial disease. Review of Systems Constitutional: denies: Fever, Chills Respiratory: denies: Cough GI: denies: Vomiting, Diarrhea Skin: denies: Rash Musculoskeletal: denies: Neck pain, Back pain Neurologic: denies: Headache PD PAST MEDICAL HISTORY - Past Medical History Past Medical History: Yes Cardiovascular: Hypertension, High cholesterol Respiratory: COPD Endocrine/Autoimmune: Type 2 diabetes Musculoskeletal: Osteoarthritis - Past Surgical History Past Surgical History: Yes General: Cholecystectomy, Appendectomy Cardiovascular: Other - Present Medications Home Medications: Ambulatory Orders Medication Instructions Recorded Confirmed Clopidogrel [Plavix] 75 mg PO DAILY 01/28/18 02/22/24 Oxybutynin [Ditropan] 2.5 mg PO DAILY 01/28/18 02/22/24 lisinopriL [Lisinopril] 5 mg PO DAILY 01/28/18 02/22/24 Cholecalciferol (Vitamin D3) 1 cap PO DAILY 02/22/24 02/22/24 [Vitamin D3] Ferrous Sulfate 325 mg PO DAILY 02/22/24 02/22/24 Folic Acid 0.4 mg PO DAILY 02/22/24 02/22/24 Gabapentin [Neurontin] 2 cap PO 02/22/24 Insulin NPH Hum/Reg Insulin Hm 27 units SUBQ QPM 02/22/24 02/22/24 [Humulin 70/30 Kwikpen] Pantoprazole Sodium 40 mg PO DAILY 02/22/24 02/22/24 - Allergies Allergies/Adverse Reactions: Allergies Allergy/AdvReac Type Severity Reaction Status Date / Time sulfamethoxazole AdvReac Severe Anaphylaxis Verified 02/21/24 20:50 [From Bactrim] trimethoprim [From Bactrim] AdvReac Severe Anaphylaxis Verified 02/21/24 20:50 - Social History Does the pt smoke?: No Smoking Status: Never smoker Does the pt drink ETOH?: No Does the pt have substance abuse?: No - Immunizations Immunizations are current?: Yes - POLST Patient has POLST: No PD ED PE NORMAL - Vitals Vital signs reviewed: Yes - General General: Alert and oriented X 3, No acute distress - HEENT HEENT: PERRL, Ears normal, Moist mucous membranes, Pharynx benign - Neck Neck: Supple, no meningeal sign - Cardiac Cardiac: RRR, Strong equal pulses - Respiratory Respiratory: No respiratory distress, Clear bilaterally - Abdomen Abdomen: Soft, Non tender, Non distended - Back Back: No CVA TTP, No spinal TTP - Derm Derm: Warm and dry - Extremities Extremities: No edema, No calf tenderness / cord, Other (Full range of motion of all limbs with no pain. 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, No motor deficit, No sensory deficit, Normal speech Eye Opening: Spontaneous Motor: Obeys Commands Verbal: Oriented GCS Score: 15 - Psych Psych: Normal mood, Normal affect Results - Vitals Vitals: Vital Signs - 24 hr 02/21/24 02/21/24 02/22/24 20:50 22:56 00:00 Temperature 36.8 C 36.8 C Heart Rate 71 68 77 Respiratory 18 18 20 Rate Blood Pressure 170/70 H 180/76 H 180/60 H O2 Saturation 97 100 98 02/22/24 02/22/24 00:35 01:20 Temperature 36.1 C L 36.9 C Heart Rate 83 83 Respiratory 20 16 Rate Blood Pressure 196/68 H 188/72 H O2 Saturation 100 100 Oxygen O2 Source Room air - EKG (time done) 2054 EKG releavant findings:: EKG personally interpreted by author of this note. Relevant findings are: Rate: Rate (enter#) (65) Rhythm: NSR [place]: LAD Intervals: Normal VT QRS: Normal Ischemia: Other (flat T waves) - Labs Labs: Laboratory Tests 02/21/24 02/21/24 02/21/24 20:58 20:58 23:05 WBC 8.9 RBC 4.20 Hgb 12.8 Hct 40.6 MCV 96.7 MCH 30.5 MCHC 31.5 L RDW 13.5 Plt Count 366 MPV 9.0 Neut # (Auto) 5.4 Lymph # (Auto) 2.5 [place] # (Auto) 0.6 Eos # (Auto) 0.3 Baso # (Auto) 0.1 Absolute Nucleated RBC 0.00 Nucleated RBC % 0.0 Sodium 140 Potassium 3.9 Chloride 107 Carbon Dioxide 27 Anion Gap 6.0 BUN 17 Creatinine 0.6 Estimated GFR (MDRD) 95 Glucose 148 H Calcium 9.7 Total Bilirubin 0.3 AST 9 L ALT 7 L Alkaline Phosphatase 78 Total Protein 6.7 Albumin 3.8 Globulin 2.9 Albumin/Globulin Ratio 1.3 Lipase 32 Urine Color YELLOW Urine Clarity CLEAR Urine pH 5.5 Ur Specific [place] 1.020 Urine Protein NEGATIVE Urine Glucose (UA) NEGATIVE Urine Ketones NEGATIVE Urine Occult Blood NEGATIVE Urine Nitrite NEGATIVE Urine Bilirubin NEGATIVE Urine Urobilinogen 0.2 (NORMAL) Ur Leukocyte Esterase NEGATIVE Ur Microscopic Review NOT INDICATED Urine Culture Comments NOT INDICATED - Rads (name of study) head CT Relevant Findings:: Final report received, See rad report CTA head and neck Relevant Findings:: Final report received, See rad report PD Medical Decision Making - ED course Complexity details: reviewed results, re-evaluated patient, considered differential, d/w patient, d/w family ED course: Patient with reports of slurred speech earlier today. She does not have any slurred speech in the emergency department. She is speaking clearly. She does not have any tremor in her arms, even when lifting objects or using them. No focal neurological deficits. Possible TIA? Unclear etiology of her symptoms. She is supposed to have a MRI of her brain for her hydrocephalus. Recommend that she have this done with her PCP. No lab abnormalities or abnormalities on her urinalysis to explain her symptoms. Ambulating without difficulty. We will have her follow up with her doctor for further care. Patient counseled regarding signs and symptoms for which I believe an urgent re-evaluation would be necessary. Patient with good understanding of and agreement to plan and is comfortable going home at this time. This document was made in part using voice recognition software. While efforts are made to proofread this document, sound alike and grammatical errors may occur. Departure - Departure Disposition: 01 Home, Self Care Clinical Impression: Tremor, Difficulty with speech Condition: Good Instructions: ED Paraesthesias Follow-Up: your,doctor in 1 week [Other] Comments: The cause of your symptoms is unclear today. There are no acute findings on your head CT or the angiogram of your head and neck. You do have hydrocephalus, recommend that you do have the MRI that you had discussed with the neurologist. Your laboratory testing is normal today as well. Please follow-up with your doctor for further care and return if you worsen. Forms: PCP List Discharge Date/Time: 02/22/24 01:24 NIHSS - Time Time: 21:20 - Level of Consciousness Level of consciousness: (0) Alert, Keenly responsive LOC Questions: (0) Answers both Q's correct LOC Commands: (0) Performs both correctly - Gaze Best Gaze: (0) Normal - Visual Visual: (0) No loss - Facial Palsy Facial Palsy: (0) Normal, symmetrical movement - Motor Arms (both separate) Motor Arm (right): (0) No drift Motor Arm (left): (0) No drift - Motor Legs (both separate) Motor Leg (right): (0) No drift Motor Leg (left): (0) No drift - Limb Ataxia Limb Ataxia: (0) Absent - Sensory Sensory: (0) Normal - Best Language Best Language: (0) No aphasia - Dysarthria Dysarthria: (0) Normal - Extinction and Inattention (formally neg Extinction and inattention: (0) No abnormality - Total Score/Results Total Score/Result: 0
[2024-02-21 21:55] LABS: BASOPHILS # (AUTO) 0.1 10^3/uL (0.0-0.1); BASOPHILS % (AUTO) 0.6 %; EOSINOPHILS # (AUTO) 0.3 10^3/uL (0.0-0.7); EOSINOPHILS % (AUTO) 3.7 %; HCT - HEMATOCRIT 40.6 % (37.0-47.0); HGB - HEMOGLOBIN 12.8 g/dL (12.0-16.0); LYMPHOCYTES # (AUTO) 2.5 10^3/uL (1.5-3.5); LYMPHOCYTES % (AUTO) 27.7 %; MEAN CORPUSCULAR HEMOGLOBIN 30.5 pg (27.0-31.0); MEAN CORPUSCULAR HGB CONC 31.5 g/dL (32.0-36.0); MEAN CORPUSCULAR VOLUME 96.7 fL (81.0-99.0); MONOCYTES # (AUTO) 0.6 10^3/uL (0.0-1.0); MONOCYTES % (AUTO) 7.1 %; NEUTROPHILS # (AUTO) 5.4 10^3/uL (1.5-6.6); NEUTROPHILS % (AUTO) 60.4 %; PLT - PLATELET COUNT 366 10^3/uL (130-450); RED CELL DISTRIBUTION WIDTH 13.5 % (12.0-15.0); WHITE BLOOD COUNT 8.9 x10^3/uL (4.8-10.8)
[2024-02-21] MEDS ORDERED: iohexoL-300 100 ML VIAL ONE (22:01)
[2024-02-21 22:05] LABS: ALBUMIN 3.8 g/dL (3.2-5.5); ALBUMIN/GLOBULIN RATIO 1.3 (1.0-2.2); BILIRUBIN,TOTAL 0.3 mg/dL (0.2-1.0); CALCIUM 9.7 mg/dL (8.5-10.3); CREATININE 0.6 mg/dL (0.6-1.3); POTASSIUM 3.9 mmol/L (3.5-4.5); TOTAL PROTEIN 6.7 g/dL (6.4-8.9)
[2024-02-21] MEDS: iohexoL-300 100 ML VIAL IVP ONE (22:25)
[2024-02-21 23:13] LABS: BILIRUBIN,URINE NEGATIVE (NEGATIVE); GLUCOSE, URINE (UA) NEGATIVE (NEGATIVE); KETONES,URINE (UA) NEGATIVE (NEGATIVE); LEUKOCYTE ESTERASE, URINE NEGATIVE (NEGATIVE); NITRITE,URINE NEGATIVE (NEGATIVE); OCCULT BLOOD,URINE NEGATIVE (NEGATIVE); PH,URINE 5.5 PH (5.0-7.5); PROTEIN,URINE NEGATIVE (NEGATIVE); UROBILINOGEN,URINE 0.2 (NORMAL) E.U./dL (NORMAL)
[2024-02-21 23:15] LABS: CLARITY,URINE CLEAR (CLEAR)
--- NOTE | 2024-02-21 23:58 | CT Report ---
PROCEDURE: Head WO INDICATIONS: mild aphasia earlier today TECHNIQUE: Noncontrast 4.5 mm thick angled axial sections acquired from the foramen magnum to the vertex. For r adiation dose reduction, the following was used: automated exposure control, adjustment of mA and/or kV according to patient size. COMPARISON: CT head 06/12 2023. FINDINGS: Image quality: Diagnostic. CSF spaces: Basal cisterns are patent. No extra-axial fluid collections. Mild enlargement of the bi lateral lateral ventricles, but decreased in size since 06/12/2023. Brain: No midline shift. No intracranial masses or hemorrhage. Hernandez-white matter interface is norm al. Diffuse cerebral volume loss with associated sulcal prominence. Skull and face: Calvarium and visualized facial bones are intact, without suspicious lesions. Sinuses: Visualized sinuses and mastoids are clear. IMPRESSION: No acute intracranial pathology. Prominent lateral ventricles, decreased in size since 06/12/2023. Reviewed by: Haydee Zapata MD, PhD on 02/21/2024 11:56 PM PDT Approved by: Haydee Zapata MD, PhD on 02/21/2024 11:56 PM PDT Station ID: [id number]
--- NOTE | 2024-02-22 00:16 | CT Report ---
PROCEDURE: Angio Head/Neck INDICATIONS: mild aphasia earlier today TECHNIQUE: After the administration of intravenous contrast, 1 mm thick sections acquired from the aortic arch t hrough the [place] of [place]. 3-dimensional bsjztfp-tqzcthieb-spmzhgcsby (MIP) and/or volume renderin g reformats were acquired of the central intracranial vasculature and neck separately. For radiation dose reduction, the following was used: automated exposure control, adjustment of mA and/or kV acco rding to patient size. CONTRAST: Omni 300, 80mls COMPARISON: Noncontrast head . FINDINGS: Image quality: Diagnostic. HEAD CT: CSF Spaces: Basal cisterns are patent. No extra-axial fluid collections. Ventricles are normal in size and shape. Brain: No significant abnormality is seen for scanning technique. Skull and face: Calvarium and visualized facial bones appear intact, without suspicious lesions. Sinuses: Visualized sinuses and mastoids are clear. HEAD CT ANGIOGRAPHY: Anterior circulation: Intracranial internal carotid arteries are normal in size and flow. The flow within the paired anterior cerebral arteries is normal and symmetric. The flow within the middle cer ebral arteries is normal and symmetric. The anterior communicating artery is seen. No aneurysms are seen. Posterior circulation: Visualized portions of the vertebral arteries demonstrate normal caliber, and join to form a normal appearing basilar artery. Flow within the posterior cerebral arteries is norm al and symmetric. No aneurysms are seen. NECK CT ANGIOGRAPHY: Carotid system: The great vessels demonstrate a conventional anatomy as they arise from the aortic a rch. The origins of the common carotid arteries appear patent. The common carotid arteries demonstr ate normal caliber and courses. There are calcifications at the bilateral carotid bulbs without flow- limiting stenosis. There are atherosclerotic calcifications at the proximal left internal carotid art susie resulting in approximately 30-40% stenosis. Post surgical changes along the right proximal credit intern al carotid artery. The internal carotid arteries demonstrate normal calibers and courses. Posterior circulation: The origins of the vertebral arteries both appear widely patent. The more masters perior extracranial portions of both vertebral arteries also demonstrate normal courses and calibers. They join to form a normal appearing basilar artery. Soft tissues: Visualized neck soft tissues demonstrate no suspicious abnormalities. Bones: No suspicious bony lesions. Multilevel degenerative changes cervical spine. No acute vertebra l body compression fracture identified. IMPRESSION: No significant intracranial arterial abnormality is seen. No significant abnormality is seen within the arteries of the neck. Approximately 30-40% stenosis of the proximal left internal carotid artery. The estimate of stenosis included in the report of the imaging study was calculated using the NASCET method Reviewed by: Haydee Zapata MD, PhD on 02/22/2024 12:15 AM PDT Approved by: Haydee Zapata MD, PhD on 02/22/2024 12:15 AM PDT Station ID: [id number]
[2024-02-22 00:39] VITALS: O2SAT 100
[2024-02-22 01:34] VITALS: BP 188/72
== END 2024-02-22 01:24 | disposition home or self-care (01) ==
LOC: EDUNIT# → ED 20:48
DX: R25.1 Tremor, unspecified (principal); R47.9 Unspecified speech disturbances; R47.81 Slurred speech; I10 Essential (primary) hypertension; E78.00 Pure hypercholesterolemia, unspecified; J44.9 Chronic obstructive pulmonary disease, unspecified; E11.9 Type 2 diabetes mellitus without complications; Z79.02 Long term (current) use of antithrombotics/antiplatelets; Z79.899 Other long term (current) drug therapy; Z79.4 Long term (current) use of insulin
CPT/HCPCS: 36415; 80053; 81001; 81003; 83690; 85025; 87086; 93005; 99284

== ENCOUNTER 2024-02-22 01:32 | Outpatient (CLI) | payer MEDICARE, OTHER | END 2024-02-22 23:59 | disposition home or self-care (01) | LOC: EMS 01:32 | PROVIDERS: ATTEND Emergency Medicine | DX: R53.1 Weakness (principal) | CPT/HCPCS: A0425; A0428 ==

== ENCOUNTER 2024-03-23 08:00 | Outpatient (CLI) | payer MEDICARE, OTHER ==
[2024-03-23 20:33] LABS: ESTIMATED AVERAGE GLUCOSE 134 mg/dL (70-100); HEMOGLOBIN A1c% 6.3 % (4.27-6.07)
== END 2024-03-23 23:59 | disposition home or self-care (01) ==
LOC: LAB.R 08:00
PROVIDERS: ATTEND Family Medicine
DX: E11.9 Type 2 diabetes mellitus without complications (principal)
CPT/HCPCS: 83036

== ENCOUNTER 2024-04-11 08:00 | Outpatient (CLI) | payer MEDICARE, OTHER ==
[2024-04-11 23:47] LABS: BILIRUBIN,URINE NEGATIVE (NEGATIVE); GLUCOSE, URINE (UA) NEGATIVE (NEGATIVE); KETONES,URINE (UA) NEGATIVE (NEGATIVE); LEUKOCYTE ESTERASE, URINE MODERATE (NEGATIVE); NITRITE,URINE POSITIVE (NEGATIVE); OCCULT BLOOD,URINE SMALL (NEGATIVE); PH,URINE 5.5 PH (5.0-7.5); PROTEIN,URINE TRACE mg/dL (NEGATIVE); UROBILINOGEN,URINE 0.2 (NORMAL) E.U./dL (NORMAL)
[2024-04-11 23:59] LABS: BACTERIA,URINE Moderate /HPF (None Seen); CLARITY,URINE HAZY (CLEAR); RBC,URINE 0-5 /HPF (0-5); SQUAMOUS EPITHELIAL CELL,UR FEW Squamous (<= Few); WBC,URINE >25 /HPF (0-5)
== END 2024-04-11 23:59 | disposition home or self-care (01) ==
LOC: LAB.R 08:00
PROVIDERS: ATTEND Registered Nurse
DX: N39.0 Urinary tract infection, site not specified (principal)
CPT/HCPCS: 81001; 87086

== ENCOUNTER 2024-07-17 06:12 | Observation (INO) ==
[2024-07-17 06:32] LABS: BASOPHILS # (AUTO) 0.1 10^3/uL (0.0-0.1); BASOPHILS % (AUTO) 0.5 %; EOSINOPHILS # (AUTO) 0.4 10^3/uL (0.0-0.7); EOSINOPHILS % (AUTO) 3.1 %; HGB - HEMOGLOBIN 13.7 g/dL (12.0-16.0); LYMPHOCYTES % (AUTO) 8.5 %; MEAN CORPUSCULAR HEMOGLOBIN 30.9 pg (27.0-31.0); MEAN CORPUSCULAR HGB CONC 32.6 g/dL (32.0-36.0); MEAN CORPUSCULAR VOLUME 94.6 fL (81.0-99.0); MONOCYTES # (AUTO) 0.9 10^3/uL (0.0-1.0); MONOCYTES % (AUTO) 7.6 %; NEUTROPHILS # (AUTO) 9.7 10^3/uL (1.5-6.6); PLT - PLATELET COUNT 247 10^3/uL (130-450); RED BLOOD COUNT 4.44 10^6/uL (4.20-5.40); RED CELL DISTRIBUTION WIDTH 12.8 % (12.0-15.0); WHITE BLOOD COUNT 12.1 x10^3/uL (4.8-10.8)
[2024-07-17] MEDS: metroNIDAZOLE 500 MG/100 ML 500 MG/100 ML BAG IV STA (06:50)
[2024-07-17] MEDS: CEFEPIME 2 GM in SODIUM CHLORIDE 0.9% MINIBAG 100 ML IV STA (06:50)
[2024-07-17 06:53] LABS: ALBUMIN 3.9 g/dL (3.2-5.5); ALBUMIN/GLOBULIN RATIO 1.5 (1.0-2.2); BILIRUBIN,TOTAL 0.6 mg/dL (0.2-1.0); CALCIUM 9.4 mg/dL (8.5-10.3); CREATININE 0.5 mg/dL (0.6-1.3); POTASSIUM 3.8 mmol/L (3.5-4.5); TOTAL PROTEIN 6.5 g/dL (6.4-8.9)
[2024-07-17] MEDS: cefTRIAXone 1 GM in SODIUM CHLORIDE 0.9% MINIBAG 100 ML IV STA (07:16)
[2024-07-17] MEDS: AZITHROMYCIN INJ 500 MG in SODIUM CHLORIDE 0.9% 250 ML IV STA (07:16)
--- NOTE | 2024-07-17 07:18 | ED Physician Documentation ---
PD HPI DYSPNEA Stated complaint Stated Complaint: RESP DISTRESS Chief complaint Chief Complaint: Resp History obtained from History obtained from: Patient, Family and EMS History of Present Illness Timing - onset: How many days ago (2) Timing - onset during: Rest Timing - details: Gradual onset (had some hoarseness of voice and cough for just 1-2 days and then much worse dyspnea overnight into this morning. Hypoxic per EMS with work of breathing so placed on CPAP. Placed onto BiPAP on ED arrival. My first assessment of her is with her on BiPAP, apparently much less labored. ) Inciting event(s): URI Improved by: BiPAP / CPAP and Inhaler/neb Associated symptoms: Fever (today), Cough and Wheezing; No Chest pain / discomfort or Bilateral edema Similar symptoms before: Has not had sx before Meds/Allgy Home Medications Ambulatory Orders Medication Instructions Recorded Confirmed clopidogrel 75 mg tablet 75 mg PO DAILY 01/28/18 07/17/24 lisinopril 2.5 mg tablet 5 mg PO DAILY 01/28/18 07/17/24 oxybutynin chloride 5 mg tablet 2.5 mg PO DAILY 01/28/18 07/17/24 ferrous sulfate 325 mg (65 mg 325 mg PO DAILY 02/22/24 07/17/24 iron) tablet,delayed release folic acid 400 mcg tablet 0.4 mg PO DAILY 02/22/24 07/17/24 gabapentin 300 mg capsule 2 cap PO BID 02/22/24 07/17/24 insulin NPH-regular 70-30 U-100 25 units subcut QPM 02/22/24 07/17/24 insulin 100 unit/mL subcutaneous pen (Humulin 70/30 U-100 KwikPen) pantoprazole 40 mg tablet,delayed 40 mg PO DAILY 02/22/24 07/17/24 release atorvastatin 10 mg tablet 10 mg PO QPM 07/17/24 07/17/24 cholecalciferol (vitamin D3) 25 25 mcg PO DAILY 07/17/24 07/17/24 mcg (1,000 unit) capsule insulin NPH isoph U-100 human 100 27 unit subcut QAM 07/17/24 07/17/24 unit/mL (3 mL) subcutaneous pen (Humulin N NPH U-100 Insulin KwikPen) Allergies Allergies Allergy/AdvReac Type Severity Reaction Status Date / Time sulfamethoxazole (From AdvReac Severe Anaphylaxis Verified 02/21/24 20:50 Bactrim) trimethoprim (From Bactrim) AdvReac Severe Anaphylaxis Verified 02/21/24 20:50 [facility] Surgical History Surgical History (Updated 07/17/24 @ 14:43 by TARYN Stevens) S/P appendectomy S/P cholecystectomy Social History Social History Smoking Status: Former smoker If you are a former smoker, when did you quit? (Date/Year): 1989 Number of Years Smoked: 35 How many cigarettes a day do you smoke? (20 cigarettes=1 Pk): 20 Do you vape?: No Relationship: Level: Assisted Home Mobility Equipment: Wheelchair Do you feel safe in your home environment?: Yes Suffered physical, verbal, emotional, or financial abuse?: No History of Abuse: No POLST Patient has POLST: Yes POLST Status: DNR Exam Constitutional normal general appearance and average body habitus on BiPAP on my first assessment, initiated on ED arrival, just before my start of shift. HENMT oropharynx normal Lymph no lymphadenopathy noted Respiratory abnormal respiratory effort (labored), auscultation abnormal (diminished breath sound), wheezing noted (expiratory wheezes) and no retractions Cardiovascular normal heart rate noted, regular rhythm noted and no edema Extremities normal to inspection, normal to palpation and no tenderness Psychiatry mental status grossly normal, oriented x3 and thought process normal Skin skin color normal Results Vitals Vitals: Vital Signs - 24 hr 07/17/24 06:13 07/17/24 06:22 07/17/24 06:23 Temperature 38.0 C H Temperature Source Pulse Rate 93 H 89 90 Respiratory Rate 17 21 Blood Pressure 171/132 H 120/79 O2 Saturation 96 95 Oxygen Delivery Method O2 Source BIPAP BIPAP If not protocol: Oxygen Flow, liters/minute Fraction of Inspired Oxygen (FIO2) 70 Pain Intensity 0 0 07/17/24 06:24 07/17/24 06:46 07/17/24 07:15 Temperature Temperature Source Pulse Rate 84 85 Respiratory Rate 21 Blood Pressure 117/61 O2 Saturation 98 Oxygen Delivery Method Bi-pap O2 Source BIPAP If not protocol: Oxygen Flow, liters/minute Fraction of Inspired Oxygen (FIO2) 50 Pain Intensity 0 07/17/24 07:35 07/17/24 08:32 07/17/24 09:05 Temperature 37.3 C Temperature Source Oral Pulse Rate 92 H 87 Respiratory Rate 26 H 19 Blood Pressure 134/59 H O2 Saturation 95 Oxygen Delivery Method O2 Source Nasal cannula If not protocol: Oxygen Flow, liters/minute 2 Fraction of Inspired Oxygen (FIO2) Pain Intensity 4 0 07/17/24 09:13 Temperature 37.3 C Temperature Source Pulse Rate Respiratory Rate Blood Pressure O2 Saturation Oxygen Delivery Method O2 Source If not protocol: Oxygen Flow, liters/minute Fraction of Inspired Oxygen (FIO2) Pain Intensity 0 Oxygen O2 Source Nasal cannula Labs Labs: Laboratory Tests 07/17/24 07/17/24 07/17/24 06:14 06:25 09:09 WBC 12.1 H RBC 4.44 Hgb 13.7 Hct 42.0 MCV 94.6 MCH 30.9 MCHC 32.6 RDW 12.8 Plt Count 247 MPV 9.0 Neut # (Auto) 9.7 H Lymph # (Auto) 1.0 L [place] # (Auto) 0.9 Eos # (Auto) 0.4 Baso # (Auto) 0.1 Absolute Nucleated RBC 0.00 Nucleated RBC % 0.0 Sodium 142 Potassium 3.8 Chloride 106 Carbon Dioxide 28 Anion Gap 8.0 BUN 12 Creatinine 0.5 L Estimated GFR (MDRD) 118 Glucose 140 H Lactic Acid 0.9 Calcium 9.4 Total Bilirubin 0.6 AST 8 L ALT 9 L Alkaline Phosphatase 78 B-Natriuretic Peptide 99 Total Protein 6.5 Albumin 3.9 Globulin 2.6 Albumin/Globulin Ratio 1.5 Procalcitonin Immunoas Urine Color DARK YELLOW Urine Clarity CLEAR Urine pH 5.5 Ur Specific [place] >=1.030 H Urine Protein NEGATIVE Urine Glucose (UA) NEGATIVE Urine Ketones NEGATIVE Urine Occult Blood NEGATIVE Urine Nitrite NEGATIVE Urine Bilirubin NEGATIVE Urine Urobilinogen 0.2 (NORMAL) Ur Leukocyte Esterase NEGATIVE Urine RBC 0-5 Urine WBC 0-3 Ur Squamous Epith Cells FEW Squamous Urine Crystals 0-2 Calcium Oxalate Urine Bacteria Few Urine Culture Comments NOT INDICATED Nasal Adenovirus (PCR) NOT DETECTED Nasal B. parapertussis DNA (PCR) NOT DETECTED Nasal Coronavir 229E PCR NOT DETECTED Nasal Coronavir HKU1 PCR NOT DETECTED Nasal Coronavir NL63 PCR NOT DETECTED Nasal Coronavir OC43 PCR NOT DETECTED Nasal Enterovir/Rhinovir PCR NOT DETECTED Nasal Influenza B PCR NOT DETECTED Nasal Influenza A PCR NOT DETECTED Nasal Parainfluen 1 PCR NOT DETECTED Nasal Parainfluen 2 PCR NOT DETECTED Nasal Parainfluen 3 PCR NOT DETECTED Nasal Parainfluen 4 PCR NOT DETECTED Nasal RSV (PCR) NOT DETECTED Nasal B.pertussis DNA PCR NOT DETECTED Nasal C.pneumoniae (PCR) NOT DETECTED Rusty Human Metapneumo PCR NOT DETECTED Nasal M.pneumoniae (PCR) NOT DETECTED Nasal SARS-CoV-2 (PCR) NOT DETECTED 07/17/24 09:29 WBC RBC Hgb Hct MCV MCH MCHC RDW Plt Count MPV Neut # (Auto) Lymph # (Auto) [place] # (Auto) Eos # (Auto) Baso # (Auto) Absolute Nucleated RBC Nucleated RBC % Sodium Potassium Chloride Carbon Dioxide Anion Gap BUN Creatinine Estimated GFR (MDRD) Glucose Lactic Acid Calcium Total Bilirubin AST ALT Alkaline Phosphatase B-Natriuretic Peptide Total Protein Albumin Globulin Albumin/Globulin Ratio Procalcitonin Immunoas 0.07 Urine Color Urine Clarity Urine pH Ur Specific [place] Urine Protein Urine Glucose (UA) Urine Ketones Urine Occult Blood Urine Nitrite Urine Bilirubin Urine Urobilinogen Ur Leukocyte Esterase Urine RBC Urine WBC Ur Squamous Epith Cells Urine Crystals Urine Bacteria Urine Culture Comments Nasal Adenovirus (PCR) Nasal B. parapertussis DNA (PCR) Nasal Coronavir 229E PCR Nasal Coronavir HKU1 PCR Nasal Coronavir NL63 PCR Nasal Coronavir OC43 PCR Nasal Enterovir/Rhinovir PCR Nasal Influenza B PCR Nasal Influenza A PCR Nasal Parainfluen 1 PCR Nasal Parainfluen 2 PCR Nasal Parainfluen 3 PCR Nasal Parainfluen 4 PCR Nasal RSV (PCR) Nasal B.pertussis DNA PCR Nasal C.pneumoniae (PCR) Rusty Human Metapneumo PCR Nasal M.pneumoniae (PCR) Nasal SARS-CoV-2 (PCR) Rads (name of study) chest xrat: Relevant Findings:: Final report received and EMP independent interpretation of test (no acute infiltrates, effusion nor PTX.) PD Medical Decision Making ED course Complexity details: reviewed results (CXR without infiltrates. Resp panel is negative though I wonder if too early in coarse since ill just 1-2 days. Consider bacterial though in case. ), re-evaluated patient (improved ease of breathing after neb duoneb and also has been on BiPAP for an hour or so. Oxygen decreased by RT. Repeated neb of albuterol, and then pt assessed off bipap and was able to maintain oxygenation above 90% and have comfortable breathing with 2 lpm NC. Down to 87% on RA. Will need inpt. ), considered differential (family states pt with inhalers at home but does not need them usually. No home oxygen. prior smoker. Likely non-Dx COPD. Presume resp infection with fever, cough, hoarsensss, dyspnea. No stigmata of CHF nor PE/DVT. Had been given IV abx for concern of pneumonia. ), d/w patient and d/w safety consultant (hospitalist service. ) Discharge Plan Discharge Patient Disposition: 66 [facility] DC/Xfer Condition: Stable Clinical Impression: Hypoxia, COPD (chronic obstructive pulmonary disease), Acute dyspnea, Acute bronchitis Interventions: ED Admission Assessment Last Done: 07/17/24 09:54
[2024-07-17] MEDS: IPRATROPIUM/ALBUTEROL 3 ML NEB INH STA ×2 (07:32)
[2024-07-17] MEDS: DEXAMETHASONE 10 MG/ML VIAL IVP STA (07:33)
[2024-07-17 07:39] LABS: B. PARAPERTUSSIS- RESP PCR PAN NOT DETECTED; B. PERTUSSIS- RESP PCR PANEL NOT DETECTED; C. PNEUMONIAE- RESP PCR PANEL NOT DETECTED; CORONAVIRUS 229E-RESP PCR NOT DETECTED; CORONAVIRUS HKU1-RESP PCR NOT DETECTED; CORONAVIRUS NL63-RESP PCR NOT DETECTED; CORONAVIRUS OC43-RESP PCR NOT DETECTED; HUMAN METAPNEUMOVIRUS NOT DETECTED; INFLUENZA A- RESP PCR PANEL NOT DETECTED; INFLUENZA B - RESP PCR PANEL NOT DETECTED; M. PNEUMONIAE- RESP PCR PANEL NOT DETECTED; PARAINFLUENZA VIRUS 1 NOT DETECTED; PARAINFLUENZA VIRUS 2 NOT DETECTED; PARAINFLUENZA VIRUS 3 NOT DETECTED; PARAINFLUENZA VIRUS 4 NOT DETECTED; RHINOVIRUS/ENTEROVIRUS NOT DETECTED; RSV- RESP PCR PANEL NOT DETECTED; SARS-CoV-2 -RESP PCR PANEL NOT DETECTED
[2024-07-17] MEDS: VANCOMYCIN INJ 1.5 GM in SODIUM CHLORIDE 0.9% 500 ML IV STA (07:47)
--- NOTE | 2024-07-17 08:08 | XRAY Report ---
PROCEDURE: XR Chest 1V INDICATIONS: Sepsis TECHNIQUE: One view of the chest was acquired. COMPARISON: Chest radiographs 10/09/2022 FINDINGS: Surgical changes and devices: None. Lungs and pleura: No pleural effusions or pneumothorax. Lungs are clear. Patient's head projects o anastacia the right lung apex. Patient is mildly rotated. Mediastinum: Mediastinal contours appear normal. Heart size is normal. Bones and chest wall: No suspicious bony lesions. Overlying soft tissues appear unremarkable. IMPRESSION: No acute cardiopulmonary process. There is no significant discrepancy when compared with the preliminary overnight report. Reviewed by: Denny Leonardo MD on 07/17/2024 8:07 AM [facility] Approved by: Denny Leonardo MD on 07/17/2024 8:07 AM [facility] Station ID: [id number]
[2024-07-17] MEDS: ACETAMINOPHEN 325 MG TABLET PO STA (08:32)
[2024-07-17] MEDS ORDERED: ONDANSETRON ODT 4 MG TABLET TL PRN (10:05)
[2024-07-17] MEDS ORDERED: SODIUM CHLORIDE FLUSH 0.9% 10 ML SYRINGE IVP PRN (10:05)
[2024-07-17] MEDS ORDERED: oxyCODONE 5 MG TABLET PO PRN (10:05)
[2024-07-17 10:15] LABS: BILIRUBIN,URINE NEGATIVE (NEGATIVE); GLUCOSE, URINE (UA) NEGATIVE (NEGATIVE); KETONES,URINE (UA) NEGATIVE (NEGATIVE); LEUKOCYTE ESTERASE, URINE NEGATIVE (NEGATIVE); NITRITE,URINE NEGATIVE (NEGATIVE); OCCULT BLOOD,URINE NEGATIVE (NEGATIVE); PH,URINE 5.5 PH (5.0-7.5); PROTEIN,URINE NEGATIVE (NEGATIVE); UROBILINOGEN,URINE 0.2 (NORMAL) E.U./dL (NORMAL)
[2024-07-17] MEDS: AZITHROMYCIN INJ 500 MG in SODIUM CHLORIDE 0.9% 250 ML IV SCH (10:16)
[2024-07-17 10:20] LABS: CLARITY,URINE CLEAR (CLEAR)
[2024-07-17 10:38] LABS: BACTERIA,URINE Few /HPF (None Seen); CRYSTALS,URINE 0-2 Calcium Oxalate /LPF; RBC,URINE 0-5 /HPF (0-5); SQUAMOUS EPITHELIAL CELL,UR FEW Squamous (<= Few); WBC,URINE 0-3 /HPF (0-5)
--- NOTE | 2024-07-17 10:42 | HISTORY & PHYSICAL EXAMINATION ---
Chief Complaint Chief Complaint Chief Complaint: dyspnea History of Present Illness Admitted From Admitted From:: ED, care facility History Obtained From History obtained from: Patient and daughter History of Present Illness HPI Comment/Other: 84-year-old female who has been a resident of [facility] in [place] since October of this year. She apparently broke her foot was admitted at [facility] for operative repair and then transferred to [facility] for rehab. Subsequently was unable to transfer home. She has a past medical history of diabetes hypertension hypercholesterolemia and COPD. She is not on any inhalers for her COPD. She smoked at sometime in the distant past. She has had cough congestion and dyspnea which has been increasing for the last several days. She came into the emergency department early this morning with complaints of dyspnea increasing overnight, was placed on CPAP by EMS then several hours of BiPAP while in the emergency department. She improved and is now on 2 L of oxygen upon transfer to the MedSurg unit.At her care facility she ran a fever of 100.8. She has a history of COPD quit smoking many many years ago. She was on oxygen for a period of time several years ago related to her COPD but was able to wean off of this. Her daughter says this was due to some sort of a mucous plug. Meds/Allgy Home Medications Ambulatory Orders Medication Instructions Recorded Confirmed clopidogrel 75 mg tablet 75 mg PO DAILY 01/28/18 07/17/24 lisinopril 2.5 mg tablet 5 mg PO DAILY 01/28/18 07/17/24 oxybutynin chloride 5 mg tablet 2.5 mg PO DAILY 01/28/18 07/17/24 ferrous sulfate 325 mg (65 mg 325 mg PO DAILY 02/22/24 07/17/24 iron) tablet,delayed release folic acid 400 mcg tablet 0.4 mg PO DAILY 02/22/24 07/17/24 gabapentin 300 mg capsule 2 cap PO BID 02/22/24 07/17/24 insulin NPH-regular 70-30 U-100 25 units subcut QPM 02/22/24 07/17/24 insulin 100 unit/mL subcutaneous pen (Humulin 70/30 U-100 KwikPen) pantoprazole 40 mg tablet,delayed 40 mg PO DAILY 02/22/24 07/17/24 release atorvastatin 10 mg tablet 10 mg PO QPM 07/17/24 07/17/24 cholecalciferol (vitamin D3) 25 25 mcg PO DAILY 07/17/24 07/17/24 mcg (1,000 unit) capsule insulin NPH isoph U-100 human 100 27 unit subcut QAM 07/17/24 07/17/24 unit/mL (3 mL) subcutaneous pen (Humulin N NPH U-100 Insulin KwikPen) albuterol sulfate 90 mcg/actuation 1 inh inhalation QID PRN shortness 07/18/24 aerosol inhaler (Ventolin HFA) of breath or wheezing #8.5 grams amoxicillin 500 mg tablet 1,000 mg (2 x 500 mg) PO TID 3 07/18/24 days #18 tabs azithromycin 500 mg tablet 500 mg PO DAILY 2 days #2 tabs 07/18/24 budesonide 160 mcg-glycopyr 9 2 inh inhalation BID #10.7 grams 07/18/24 mcg-formot 4.8 mcg/actuation HFA inhaler (Breztri Aerosphere) guaifenesin 100 mg/5 mL oral liquid 200 mg (10 mL) PO Q4H #1,800 mL 07/18/24 prednisone 20 mg tablet 40 mg (2 x 20 mg) PO DAILY 4 days 07/18/24 #8 tabs Allergies Allergies Allergy/AdvReac Type Severity Reaction Status Date / Time sulfamethoxazole (From AdvReac Severe Anaphylaxis Verified 02/21/24 20:50 Bactrim) trimethoprim (From Bactrim) AdvReac Severe Anaphylaxis Verified 02/21/24 20:50 PFSH Medical History Medical History (Updated 07/19/24 @ 00:01 by ) DNR (do not resuscitate) Hyperlipidemia DM2 (diabetes mellitus, type 2) COPD (chronic obstructive pulmonary disease) Hypertension Surgical History Surgical History (Updated 07/17/24 @ 14:43 by TARYN Stevens) S/P appendectomy S/P cholecystectomy Social History Social History Smoking Status: Former smoker If you are a former smoker, when did you quit? (Date/Year): 1989 Number of Years Smoked: 35 How many cigarettes a day do you smoke? (20 cigarettes=1 Pk): 20 Do you vape?: No Relationship: Level: Assisted Home Mobility Equipment: Wheelchair Do you feel safe in your home environment?: Yes Suffered physical, verbal, emotional, or financial abuse?: No History of Abuse: No POLST Patient has POLST: Yes POLST Status: Limited Interventions Review of Systems Status of ROS: 10 or more systems reviewed and unremarkable except as noted in history and below Constitutional Reports: Fatigue and Malaise; Denies: Fever or Chills Eyes Denies: Change in vision Ears, nose, mouth, and throat Denies: Ear pain, Tinnitus, Nasal discharge or Throat pain Cardiovascular Reports: shortness of breath with exertion; Denies: Irregular heart rate, chest pain, palpitations or swelling of feet/ankles Respiratory Reports: Shortness of breath and Cough Gastrointestinal Reports: Poor appetite; Denies: Abdominal pain, Nausea or Vomiting Genitourinary Denies: Painful urination Musculoskeletal Denies: Muscle aches Integumentary/Breast Denies: Rash Neurological Reports: General weakness; Denies: Headache Endocrine Reports: Fatigue Prior Level of Functionality: resident of care facility. Exam Constitutional normal general appearance HENMT normocephalic, hearing grossly normal bilaterally and external ears normal Eyes PERRL and conjunctivae normal Neck/C-Spine visual inspection normal Lymph no lymphadenopathy noted Chest inspection of chest normal Respiratory breath sounds equal bilaterally, normal respiratory effort, no wheezes (bi basilar wheeze), no rales (occasional, worse on right. ), no retractions and no use of accessory muscles Cardiovascular normal heart rate noted Gastrointestinal abdomen normal to inspection and abdomen soft to palpation Back/Pelvis spine normal to inspection Extremities normal to inspection Neurology personal support worker II-XII intact, speech normal and GCS 15 Psychiatry Mental Status Exam documented in the separate MSE mental status grossly normal, oriented x3 and thought process normal Skin skin color normal Conclusion/Plan Problem List (1) Acute respiratory failure with hypoxia: Plan: Comes in to the emergency department with hypoxia via EMS from her care facility. Improved after several hours of BiPAP. She is now on supplemental oxygen 2 L via nasal cannula with sats in the mid 90s. Will continue oxygen therapy as we treat her for her community-acquired pneumonia which is most likely the cause of her hypoxia. Discussed with Dr. Gauthier in the emergency department decision was made to admit the patient for her hypoxia, community- acquired pneumonia and COPD. (2) Community acquired pneumonia: Plan: Elevated white blood cell count. Chest x-ray shows no acute cardiopulmonary process. She has wheezes and rhonchi on exam. In addition to hypoxia. I will treat her for community-acquired pneumonia. She was placed on Zithromax and Rocephin. She is Zithromax day 1 of 3 and Rocephin day 1 of 5. (3) COPD (chronic obstructive pulmonary disease): Plan: She is not on any medications for COPD currently. However, 3 years ago she was on oxygen for period of time. At this time we will start albuterol Atrovent neb nebulizer treatments she is currently on steroids. She got dexamethasone 10 mg in the emergency department I will give her 6 mg a day for a total of 5 days of steroid therapy. Consider discharging to home on inhaled steroid therapy in addition to long and short acting beta agonist. (4) DM2 (diabetes mellitus, type 2): Plan: I have stopped her home insulin therapy. I have placed her on sliding scale insulin and Lantus 10 units at night. I have ordered A1c to be sent with morning labs. (5) Hypertension: Plan: Selected Entries 07/17/24 09:05 07/17/24 09:54 07/17/24 10:05 Pulse Rate 87 72 Pulse Rate [Radial] 76 Blood Pressure 134/59 H 122/52 L Blood Pressure [Right Radial artery] 127/59 L 07/17/24 14:23 Pulse Rate Pulse Rate [Radial] 79 Blood Pressure Blood Pressure [Right Radial artery] 165/57 H Home medication of lisinopril 5 mg daily was restarted here. Will monitor her blood pressures. (6) Hyperlipidemia: Plan: Home statin restarted. (7) DNR (do not resuscitate): Plan: Daughter at bedside this morning affirms DNR/DNI status. There is a POLST on the chart dated October 2023. Plan I have spent 78 minutes in the care of this patient today. This includes time [id number], review and ordering of diagnostic imaging and laboratory studie,s and consultation with other providers.. Monitoring the patient's signs symptoms, evaluation of medication effectiveness and patient's response to treatment. Lab Results 07/18/24 05:20 07/18/24 05:20
[2024-07-17] MEDS: ALBUTEROL NEB 2.5 MG/3 ML INH STA (11:41)
[2024-07-17] MEDS: IPRATROPIUM/ALBUTEROL 3 ML NEB INH SCH (12:06)
--- NOTE | 2024-07-17 15:01 | PHARMACY PROGRESS NOTE ---
Best Possible Medication History Admit Date and Time: 07/17/24 [id number] Home Medications Medication Instructions Recorded Confirmed Type clopidogrel 75 mg tablet 75 mg PO DAILY 01/28/18 07/17/24 History lisinopril 2.5 mg tablet 5 mg PO DAILY 01/28/18 07/17/24 History oxybutynin chloride 5 mg tablet 2.5 mg PO DAILY 01/28/18 07/17/24 History cholecalciferol (vitamin D3) 1,250 1 cap PO DAILY 02/22/24 07/17/24 History mcg (50,000 unit) capsule ferrous sulfate 325 mg (65 mg 325 mg PO DAILY 02/22/24 07/17/24 History iron) tablet,delayed release folic acid 400 mcg tablet 0.4 mg PO DAILY 02/22/24 07/17/24 History gabapentin 300 mg capsule 2 cap PO BID 02/22/24 07/17/24 History insulin NPH-regular 70-30 U-100 25 units subcut QPM 02/22/24 07/17/24 History insulin 100 unit/mL subcutaneous pen (Humulin 70/30 U-100 KwikPen) pantoprazole 40 mg tablet,delayed 40 mg PO DAILY 02/22/24 07/17/24 History release atorvastatin 10 mg tablet 10 mg PO QPM 07/17/24 07/17/24 History insulin NPH isoph U-100 human 100 27 unit subcut QAM 07/17/24 07/17/24 History unit/mL (3 mL) subcutaneous pen (Humulin N NPH U-100 Insulin KwikPen) Processed by: Pharmacy Medications reviewed in ED?: Yes Medication History completed: Yes Patient Interview: Completed Secondary Source(s): Insurance records [facility] Statement: As the person ultimately responsible for medication therapy, providers are able to order a medication from an existing home medication list in [facility] via the "Reconcile Routine" prior to Confirmation of that medication by postal support employee. Such practice is discouraged except when the physician, in their clinical judgment, deems that a medical need exists for a medication without regard to previous use.
[2024-07-17] MEDS: INSULIN LISPRO 300 UNIT/3 ML PEN SUBQ SCH (17:06)
[2024-07-17] MEDS: SODIUM CHLORIDE FLUSH 0.9% 10 ML SYRINGE IVP SCH (17:08)
[2024-07-17] MEDS: guaiFENesin 100 MG/5 ML UDC PO PRN (17:39)
[2024-07-17] MEDS: ACETAMINOPHEN 325 MG TABLET PO PRN (20:39)
[2024-07-17] MEDS: GABAPENTIN 300 MG CAPSULE PO SCH (20:39)
[2024-07-17] MEDS: ATORVASTATIN 10 MG TABLET PO SCH (20:39)
[2024-07-17] MEDS: INSULIN GLARGINE-YFGN 300 UNIT/3 ML PEN SUBQ SCH (20:44)
[2024-07-17] MEDS: HEPARIN 5,000 UNIT/ML VIAL SUBQ SCH (20:44)
[2024-07-18 06:16] LABS: BASOPHILS % (AUTO) 0.2 %; EOSINOPHILS % (AUTO) 0.3 %; HCT - HEMATOCRIT 34.4 % (37.0-47.0); LYMPHOCYTES # (AUTO) 1.5 10^3/uL (1.5-3.5); LYMPHOCYTES % (AUTO) 16.3 %; MEAN CORPUSCULAR HEMOGLOBIN 31.1 pg (27.0-31.0); MEAN CORPUSCULAR VOLUME 97.2 fL (81.0-99.0); MEAN PLATELET VOLUME 9.5 fL (7.9-10.8); MONOCYTES # (AUTO) 0.7 10^3/uL (0.0-1.0); NEUTROPHILS # (AUTO) 6.8 10^3/uL (1.5-6.6); PLT - PLATELET COUNT 227 10^3/uL (130-450); RED BLOOD COUNT 3.54 10^6/uL (4.20-5.40); RED CELL DISTRIBUTION WIDTH 12.5 % (12.0-15.0)
[2024-07-18 06:27] LABS: CALCIUM 8.7 mg/dL (8.5-10.3); CREATININE 0.5 mg/dL (0.6-1.3)
[2024-07-18 07:47] VITALS: O2SAT 92
[2024-07-18] MEDS: PANTOPRAZOLE 40 MG TABLET PO SCH (08:34)
[2024-07-18] MEDS: FERROUS SULFATE 325 MG TABLET PO SCH (08:34)
[2024-07-18] MEDS: SOLIFENACIN SUCCINATE 5 MG TABLET PO SCH (08:34)
[2024-07-18] MEDS: FOLIC ACID 1 MG TABLET PO SCH (08:34)
[2024-07-18] MEDS: lisinopriL 5 MG TABLET PO SCH (08:34)
[2024-07-18] MEDS: CLOPIDOGREL 75 MG TABLET PO SCH (08:34)
[2024-07-18] MEDS: CHOLECALCIFEROL 25 MCG TABLET PO SCH (08:34)
[2024-07-18] MEDS: DEXAMETHASONE 4 MG/ML VIAL IVP SCH (08:35)
[2024-07-18] MEDS: INSULIN LISPRO 300 UNIT/3 ML PEN SUBQ SCH (08:40)
[2024-07-18] MEDS: cefTRIAXone 1 GM VIAL IVP SCH (08:41)
[2024-07-18] MEDS: polyethylene glycoL 3350 17 GM PACKET PO SCH (08:41)
--- NOTE | 2024-07-18 09:12 | Discharge Summary ---
Discharge Summary Admit Date: 07/17/24 Discharge Date: 07/18/24 Discharging Provider: Max Mcfarland NP Primary Care Provider: An Sutton Code Status: Attempt Resuscitation Discharge Facility Name: [facility] DIAGNOSES Admission Diagnoses: Acute respiratory failure with hypoxia Community-acquired pneumonia COPD exacerbation Diabetes Hypertension Hyperlipidemia DNR Discharge Diagnoses with Status of Each Condition: Acute respiratory failure with hypoxiaresolved Community-acquired pneumoniaactive COPD exacerbationactive Diabeteschronic Hypertensionchronic Hyperlipidemiachronic DNRchronic HPI History of Present Illness: 84-year-old female with past medical history of diabetes, hypertension, hypercholesterolemia, COPD who presented for several day history of dyspnea, cough, congestion. She also reported a fever of 100.8. She was found to be hypoxic, and was brought to the ER. In the ER, CXR was performed and showed no acute abnormality. Given her hypoxia, hospitalist was contacted for admission and she was placed in observation HOSPITAL COURSE Hospital Course: She received IV antibiotics and steroids, and her white blood cell count has improved today. She is on room air, in no acute distress. She will be discharged home on continued antibiotics and steroid burst and will be started on inhaler regimen for COPD ALLERGIES Allergies Allergy/AdvReac Type Severity Reaction Status Date / Time sulfamethoxazole (From AdvReac Severe Anaphylaxis Verified 02/21/24 20:50 Bactrim) trimethoprim (From Bactrim) AdvReac Severe Anaphylaxis Verified 02/21/24 20:50 MEDICATIONS Ambulatory Orders Medication Instructions Recorded Confirmed clopidogrel 75 mg tablet 75 mg PO DAILY 01/28/18 07/17/24 lisinopril 2.5 mg tablet 5 mg PO DAILY 01/28/18 07/17/24 oxybutynin chloride 5 mg tablet 2.5 mg PO DAILY 01/28/18 07/17/24 ferrous sulfate 325 mg (65 mg 325 mg PO DAILY 02/22/24 07/17/24 iron) tablet,delayed release folic acid 400 mcg tablet 0.4 mg PO DAILY 02/22/24 07/17/24 gabapentin 300 mg capsule 2 cap PO BID 02/22/24 07/17/24 insulin NPH-regular 70-30 U-100 25 units subcut QPM 02/22/24 07/17/24 insulin 100 unit/mL subcutaneous pen (Humulin 70/30 U-100 AnnmarieikPen) pantoprazole 40 mg tablet,delayed 40 mg PO DAILY 02/22/24 07/17/24 release atorvastatin 10 mg tablet 10 mg PO QPM 07/17/24 07/17/24 cholecalciferol (vitamin D3) 25 25 mcg PO DAILY 07/17/24 07/17/24 mcg (1,000 unit) capsule insulin NPH isoph U-100 human 100 27 unit subcut QAM 07/17/24 07/17/24 unit/mL (3 mL) subcutaneous pen (Humulin N NPH U-100 Insulin KwikPen) albuterol sulfate 90 mcg/actuation 1 inh inhalation QID PRN shortness 07/18/24 aerosol inhaler (Ventolin HFA) of breath or wheezing #8.5 grams amoxicillin 500 mg capsule 1,000 mg (2 x 500 mg) PO TID 4 07/18/24 days #24 caps azithromycin 500 mg tablet 500 mg PO DAILY 2 days #2 tabs 07/18/24 budesonide 160 mcg-glycopyr 9 2 inh inhalation BID #10.7 grams 07/18/24 mcg-formot 4.8 mcg/actuation HFA inhaler (Breztri Aerosphere) guaifenesin 100 mg/5 mL oral liquid 200 mg (10 mL) PO Q4H PRN Cough 30 07/18/24 days #473 mL prednisone 20 mg tablet 40 mg (2 x 20 mg) PO DAILY 3 days 07/18/24 #6 tabs PHYSICAL EXAM AT DISCHARGE General Appearance: positive No acute distress and Alert Eyes Bilateral: positive Normal inspection and PERRL ENT: positive ENT inspection nml and Pharynx nml Neck: positive Nml inspection Respiratory: positive Chest non-tender, No respiratory distress and Wheezes Cardiovascular: positive Regular rate & rhythm Peripheral Pulses: positive 2+ Abdomen: positive Non-tender Skin: positive Color nml Extremities: positive Non-tender Neurologic/Psychiatric: positive Oriented x3 LABS 07/18/24 05:20 07/18/24 05:20 DIAGNOSTIC IMAGING Diagnostic Imaging Results: Final report reviewed Diagnostic Imaging Results Comments: CXR no acute abnormalities SEPSIS Current Stage of Sepsis: Ruled out FOLLOW UP Follow Up: With PCP TIME SPENT Time Spent in Discharge (Minutes): 35 Discharge Plan Discharge Patient Disposition: DC/Xfer Condition: Stable Medically Cleared Date:: 07/18/24 Prescriptions: New guaifenesin 100 mg/5 mL Liquid 200 mg PO Q4H PRN (Reason: Cough) 30 Days Qty: 473 0RF amoxicillin 500 mg capsule 1,000 mg PO TID 4 Days Qty: 24 0RF azithromycin 500 mg tablet 500 mg PO DAILY 2 Days Qty: 2 0RF prednisone 20 mg tablet 40 mg PO DAILY 3 Days Qty: 6 0RF Breztri Aerosphere 160-9-4.8 mcg/actuation HFA aerosol inhaler 2 inh inhalation BID Qty: 10.7 2RF albuterol sulfate [Ventolin HFA] 90 mcg/actuation HFA aerosol inhaler 1 inh inhalation QID PRN (Reason: shortness of breath or wheezing) Qty: 8.5 0RF Continued clopidogrel 75 MG tablet 75 mg PO DAILY oxybutynin chloride 5 MG tablet 2.5 mg PO DAILY lisinopril 2.5 MG tablet 5 mg PO DAILY folic acid 0.4 MG tablet 0.4 mg PO DAILY pantoprazole 40 MG tablet,delayed release (DR/EC) 40 mg PO DAILY gabapentin 300 MG capsule 2 cap PO BID ferrous sulfate 325 MG tablet,delayed release (DR/EC) 325 mg PO DAILY Humulin 70/30 U-100 KwikPen 100 UNIT/ML insulin pen 25 units subcut QPM atorvastatin 10 mg tablet 10 mg PO QPM Humulin N NPH Insulin KwikPen 100 unit/mL (3 mL) insulin pen 27 unit subcut QAM cholecalciferol (vitamin D3) 25 mcg (1,000 unit) capsule 25 mcg PO DAILY Diet: Regular Health Concerns: You are a 84-year-old female with past medical history significant for diabetes, hypertension, hypercholesterolemia, COPD. You presented to the hospital for shortness of breath as well as cough and congestion.You were held in observation because you had increased oxygen needs. You are back on room air this morning, and I believe you are now stable to discharge back to [facility]. I am starting you on a new inhaler regimen. I have 1 inhaler that I want you to take every day called Breztri. This inhaler is not to be used as a rescue inhaler as it will not help with acute shortness of breath. I am also ordering a albuterol inhaler. This is as needed for shortness of breath. I would like you to finish course of antibiotics to cover for possible pneumonia and I would like you to finish a course of steroids. You are also being started on guaifenesin cough syrup, this will help to mobilize secretions and help you clear your lungs Plan of Treatment: Steroid Antibiotic Inhalers Mucolytic Print Language: Guinean Stand Alone Forms: SNF Discharge, PCP List Follow-up Care: An Sutton PA [Primary Care Provider] -
[2024-07-18 10:08] LABS: ESTIMATED AVERAGE GLUCOSE 154 mg/dL (70-100)
== END 2024-07-18 12:55 ==
LOC: MS2 06:12 → ED 06:12 → MS2 09:54
PROVIDERS: ADMIT Physician Assistant Medical; ATTEND Physician Assistant Medical
DX: Z87.891 Personal history of nicotine dependence; E78.5 Hyperlipidemia, unspecified; E11.9 Type 2 diabetes mellitus without complications; I10 Essential (primary) hypertension; J18.9 Pneumonia, unspecified organism; Z79.4 Long term (current) use of insulin; Z66 Do not resuscitate; J96.01 Acute respiratory failure with hypoxia; J44.0 Chronic obstructive pulmonary disease with (acute) lower respiratory infection

== ENCOUNTER 2024-09-28 18:31 | Inpatient (IN) ==
[2024-09-28 20:25] LABS: BASOPHILS # (AUTO) 0.1 10^3/uL (0.0-0.1); BASOPHILS % (AUTO) 0.3 %; EOSINOPHILS # (AUTO) 0.1 10^3/uL (0.0-0.7); EOSINOPHILS % (AUTO) 0.5 %; HCT - HEMATOCRIT 37.1 % (37.0-47.0); HGB - HEMOGLOBIN 11.6 g/dL (12.0-16.0); LYMPHOCYTES # (AUTO) 2.9 10^3/uL (1.5-3.5); LYMPHOCYTES % (AUTO) 17.9 %; MEAN CORPUSCULAR HGB CONC 31.3 g/dL (32.0-36.0); MEAN CORPUSCULAR VOLUME 99.2 fL (81.0-99.0); MEAN PLATELET VOLUME 9.4 fL (7.9-10.8); MONOCYTES # (AUTO) 0.9 10^3/uL (0.0-1.0); MONOCYTES % (AUTO) 5.9 %; NEUTROPHILS # (AUTO) 11.9 10^3/uL (1.5-6.6); NEUTROPHILS % (AUTO) 74.8 %; PLT - PLATELET COUNT 319 10^3/uL (130-450); RED BLOOD COUNT 3.74 10^6/uL (4.20-5.40); RED CELL DISTRIBUTION WIDTH 13.1 % (12.0-15.0); WHITE BLOOD COUNT 15.9 x10^3/uL (4.8-10.8)
[2024-09-28] MEDS: IPRATROPIUM/ALBUTEROL 3 ML NEB INH STA (20:33)
[2024-09-28 20:37] LABS: VBG BASE EXCESS 5.9 mmol/L (-2 - +2); VBG PCO2 42.2 mmHg (41-51); VBG PH 7.456 (7.31-7.41); VBG PO2 50.2 mmHg (25-47); VBG TOTAL CO2 31.3 mmol/L (24-29)
[2024-09-28 20:38] LABS: ALBUMIN 3.2 g/dL (3.2-5.5); ALBUMIN/GLOBULIN RATIO 1.1 (1.0-2.2); BILIRUBIN,TOTAL 0.7 mg/dL (0.2-1.0); CREATININE 0.6 mg/dL (0.6-1.3); POTASSIUM 3.9 mmol/L (3.5-4.5)
--- NOTE | 2024-09-28 21:27 | ED Physician Documentation ---
History of Present Illness Stated complaint Stated Complaint: SOA Chief complaint Chief Complaint: Resp History obtained from History obtained from: Patient History of Present Illness Timing: Prior to arrival Additonal information Additional information: Patient is an 84-year-old female with past medical history of COPD on 3 L nasal cannula at baseline, type 2 diabetes, mild cognitive impairment incontinence and diabetes on insulin presents to the emergency department with worsening confusion and altered mental status. Patient was seen here on the and d iagnosed with human metapneumovirus. Patient was discharged back to facility where he she was receiving DuoNeb treatments and steroids. Patient appeared to be declining per POA who called multiple times today and the patient had mainly been resting and only taking her medications at facility. Patient was brought in this afternoon by POA for worsening mental status. On arrival patient is awake and alert she is not answering all questions but does say her blood sugar feels dry and follows some commands. Meds/Allgy Home Medications Ambulatory Orders Medication Instructions Recorded Confirmed clopidogrel 75 mg tablet 75 mg PO DAILY 01/28/18 07/17/24 lisinopril 2.5 mg tablet 5 mg PO DAILY 01/28/18 07/17/24 oxybutynin chloride 5 mg tablet 2.5 mg PO DAILY 01/28/18 07/17/24 ferrous sulfate 325 mg (65 mg 325 mg PO DAILY 02/22/24 07/17/24 iron) tablet,delayed release folic acid 400 mcg tablet 0.4 mg PO DAILY 02/22/24 07/17/24 gabapentin 300 mg capsule 2 cap PO BID 02/22/24 07/17/24 insulin NPH-regular 70-30 U-100 25 units subcut QPM 02/22/24 07/17/24 insulin 100 unit/mL subcutaneous pen (Humulin 70/30 U-100 KwikPen) pantoprazole 40 mg tablet,delayed 40 mg PO DAILY 02/22/24 07/17/24 release atorvastatin 10 mg tablet 10 mg PO QPM 07/17/24 07/17/24 cholecalciferol (vitamin D3) 25 25 mcg PO DAILY 07/17/24 07/17/24 mcg (1,000 unit) capsule insulin NPH isoph U-100 human 100 27 unit subcut QAM 07/17/24 07/17/24 unit/mL (3 mL) subcutaneous pen (Humulin N NPH U-100 Insulin KwikPen) albuterol sulfate 90 mcg/actuation 1 inh inhalation QID PRN shortness 07/18/24 aerosol inhaler (Ventolin HFA) of breath or wheezing #8.5 grams amoxicillin 500 mg tablet 1,000 mg (2 x 500 mg) PO TID 3 07/18/24 days #18 tabs azithromycin 500 mg tablet 500 mg PO DAILY 2 days #2 tabs 07/18/24 budesonide 160 mcg-glycopyr 9 2 inh inhalation BID #10.7 grams 07/18/24 mcg-formot 4.8 mcg/actuation HFA inhaler (Breztri Aerosphere) guaifenesin 100 mg/5 mL oral liquid 200 mg (10 mL) PO Q4H #1,800 mL 07/18/24 prednisone 20 mg tablet 40 mg (2 x 20 mg) PO DAILY 4 days 07/18/24 #8 tabs Allergies Allergies Allergy/AdvReac Type Severity Reaction Status Date / Time sulfamethoxazole (From AdvReac Severe Anaphylaxis Verified 09/28/24 18:45 Bactrim) trimethoprim (From Bactrim) AdvReac Severe Anaphylaxis Verified 09/28/24 18:45 [facility] Medical History Medical History (Updated 09/28/24 @ 23:12 by Jeni Frances PA-C) DNR (do not resuscitate) Hyperlipidemia DM2 (diabetes mellitus, type 2) COPD (chronic obstructive pulmonary disease) Hypertension Surgical History Surgical History (Updated 07/17/24 @ 14:43 by TARYN Stevens) S/P appendectomy S/P cholecystectomy Social History Social History Smoking Status: Former smoker If you are a former smoker, when did you quit? (Date/Year): 1989 Number of Years Smoked: 35 How many cigarettes a day do you smoke? (20 cigarettes=1 Pk): 20 Do you vape?: No Relationship: Child Level: Assisted Home Mobility Equipment: Wheelchair Do you feel safe in your home environment?: Yes Suffered physical, verbal, emotional, or financial abuse?: No History of Abuse: No POLST Patient has POLST: Yes POLST Status: DNR Exam Constitutional normal general appearance Patient appears fatigued but will answer some questions A& O x 2 on arrival. HENMT normocephalic Eyes PERRL and EOMs intact bilaterally Lymph no lymphadenopathy noted Chest inspection of chest normal Respiratory Crackles on auscultation of the lungs Cardiovascular normal heart rate noted, regular rhythm noted and no gallop Gastrointestinal abdomen normal to inspection Back/Pelvis spine normal to inspection Extremities normal to inspection No lower leg swelling or pitting edema Skin skin color normal Results Vitals Vitals: Vital Signs - 24 hr 09/28/24 18:38 09/28/24 20:33 Temperature 36.6 C Temperature Source Temporal Artery Scan Pulse Rate 91 107 H Respiratory Rate 20 18 Blood Pressure 102/56 L O2 Saturation 95 O2 Source Room air Nasal cannula If not protocol: Oxygen Flow, liters/minute 4 Pain Intensity 0 Oxygen O2 Source Nasal cannula EKG (time done) 2056: EKG releavant findings:: EKG personally interpreted by author of this note. Relevant findings are: Rate: Rate (enter#) (60) Rhythm: NSR Ischemia: ST elevation c/w ischemia (anterior ischemia) Compare to prior EKG: Changed from prior EKG Computer interpretation: Agree with computer Labs Labs: Microbiology 09/28/24 22:00 Occult Blood - Final Stool Laboratory Tests 09/28/24 09/28/24 09/28/24 20:04 20:20 21:40 WBC 15.9 H 14.6 H RBC 3.74 L 3.79 L Hgb 11.6 L 11.7 L Hct 37.1 37.1 MCV 99.2 H 97.9 MCH 31.0 30.9 MCHC 31.3 L 31.5 L RDW 13.1 13.2 Plt Count 319 312 MPV 9.4 9.5 Neut # (Auto) 11.9 H Lymph # (Auto) 2.9 [place] # (Auto) 0.9 Eos # (Auto) 0.1 Baso # (Auto) 0.1 Absolute Nucleated RBC 0.00 Nucleated RBC % 0.0 APTT 23.9 L VBG pH 7.456 H VBG pCO2 42.2 VBG pO2 50.2 H VBG HCO3 30.0 H VBG Total CO2 31.3 H VBG O2 Saturation 78.0 VBG Base Excess 5.9 H Sodium 138 Potassium 3.9 Chloride 102 Carbon Dioxide 29 Anion Gap 7.0 BUN 20 Creatinine 0.6 Estimated GFR (MDRD) 95 Glucose 112 H POC Whole Bld Glucose 120 Calcium 9.0 Magnesium 2.0 Total Bilirubin 0.7 AST 11 ALT 12 Alkaline Phosphatase 64 Troponin I High Sens 1001.3 H* B-Natriuretic Peptide 1063 H Total Protein 6.0 L Albumin 3.2 Globulin 2.8 Albumin/Globulin Ratio 1.1 Rads (name of study) CXR: Relevant Findings:: Final report received and EMP independent interpretation of test Interpretation: Mild increase in cardiomegaly PD Medical Decision Making ED course Complexity details: reviewed old records and reviewed results ED course: Patient is an 84-year-old female with past medical history of COPD on 3 L nasal cannula at baseline, type 2 diabetes, mild cognitive impairment incontinence and diabetes on insulin presents to the emergency department with worsening confusion and altered mental status. Patient was seen here on the and diagnosed with human metapneumovirus. Patient was discharged back to facility where he she was receiving DuoNeb treatments and steroids. Patient appeared to be declining per POA who called multiple times today and the patient had mainly been resting and only taking her medications at facility. Patient was brought in this afternoon by POA for worsening mental status. On arrival patient is awake and alert she is not answering all questions but does say her blood sugar feels dry and follows some commands. Vitals on arrival show mild tachycardia to the 110s soft blood pressures with SBP in the 110s. And saturating well on 3 L nasal cannula around 9, 192% consistent with COPD history. Initial labs show leukocytosis.Magnesium within normal limits CMP shows no significant BECKY. BNP significantly elevated at 1000. Patient has diffuse crackles in the lungs on auscultation no significant lower leg swelling a VBG here so shows no significant acidosis or alkalosis no significant CO2 retaining. Magnesium is stable. 1999: Updated on patient's status as she is receiving DuoNeb treatment she appears more lethargic to nursing staff did reevaluate patient she is laying in bed to try to arouse her she does open her eyes but appears more lethargic and is not speaking at this time. Initial troponin EKG respiratory swab were added on. Pending CXR at this time. 2056: EKG performed by ron here in the ED shows significant change from previous back in July significant ST elevation consistent with acute anterior infarct in leads V1 through V4. Consulted with POA at bedside and STEMI alert was called. Discussed with POA as patient is unable to make decisions for herself at this time due to altered mental status. She notes patient would not want to have a stent placed in her heart. She is DNR DNI. POA confirmed with her brother and they have decided that this is the plan. I did discuss patient after STEMI alert was called off again and she confirms no stent should be placed. I did discuss with the ED physician Dr. Tejeda from [facility] for STEMI protocol but confirmed with him that POA has declined treatment on patient's behalf. I did discuss starting nitroglycerin patch as some blood pressures were soft and heparin infusions as this is part of the protocol and patient POA would like to continue with this treatment at this time. 0: STEMI protocol has been held off heparin infusions aspirin and nitroglycerin have been given after confirming this with patient's POA. We have 2 EKGs at this time 2056 and 2099 that show acute PR. I did confirm these EKG's with Dr. Torres here in the ED. Troponin is pending at this time. CXR here in the ED shoes diffuse vascular congestion. 2137: Troponin returns here in the ED at 1001.3. We did consider CT head prior to starting heparin but as discussed with family risk of head bleed before starting heparin was a concern but they were agreeable additionally patient had not had any falls recently she is on Plavix but no other blood thinners. She is not reporting any head pain and if there was concern for intracranial head bleed according to family and comfort measures patient would not want intervention. 2143: Will discuss with hospitalist for comfort measures and discussing with transitioning to hospice. 2241: Patient had some soft blood pressures here in the emergency department 87 SBP discussed with family members they would like to do fluids here in the ED. Patient had not been eating or drinking recently. 2300: Discussed case with Dr. Awan who will hold heparin and start on lovenox here in ED for pateint to be admitted to the floor, family and POA agreeable with this plan. Patient BP improved here in the ED will hold off on fluids. Hos pitalis will take patient to floor. POLST form found here in the ED and had been signed by patient. Discharge Plan Discharge Patient Disposition: [facility] DC/Xfer Condition: Poor Clinical Impression: Acute PR, Severe chronic obstructive pulmonary disease Prescriptions: No Action clopidogrel 75 MG tablet 75 mg PO DAILY oxybutynin chloride 5 MG tablet 2.5 mg PO DAILY lisinopril 2.5 MG tablet 5 mg PO DAILY folic acid 0.4 MG tablet 0.4 mg PO DAILY pantoprazole 40 MG tablet,delayed release (DR/EC) 40 mg PO DAILY gabapentin 300 MG capsule 2 cap PO BID ferrous sulfate 325 MG tablet,delayed release (DR/EC) 325 mg PO DAILY Humulin 70/30 U-100 KwikPen 100 UNIT/ML insulin pen 25 units subcut QPM atorvastatin 10 mg tablet 10 mg PO QPM Humulin N NPH Insulin KwikPen 100 unit/mL (3 mL) insulin pen 27 unit subcut QAM cholecalciferol (vitamin D3) 25 mcg (1,000 unit) capsule 25 mcg PO DAILY amoxicillin 500 mg tablet 1,000 mg PO TID 3 Days Qty: 18 0RF azithromycin 500 mg tablet 500 mg PO DAILY 2 Days Qty: 2 0RF prednisone 20 mg tablet 40 mg PO DAILY 4 Days Qty: 8 0RF guaifenesin 100 mg/5 mL liquid 200 mg PO Q4H Qty: 1800 0RF Breztri Aerosphere 160-9-4.8 mcg/actuation HFA aerosol inhaler 2 inh inhalation BID Qty: 10.7 2RF albuterol sulfate [Ventolin HFA] 90 mcg/actuation HFA aerosol inhaler 1 inh inhalation QID PRN (Reason: shortness of breath or wheezing) Qty: 8.5 0RF Print Language: [place]
[2024-09-28] MEDS: HEPARIN/0.45% NACL 25,000 UNIT/500 ML BAG IV SCH (21:45)
--- NOTE | 2024-09-28 21:45 | XRAY Report ---
PROCEDURE: XR Chest 1V INDICATIONS: sob TECHNIQUE: One view of the chest was acquired. COMPARISON: 07/17/2024 FINDINGS AND IMPRESSION: On this single view study with low lung volumes, no airspace consolidation or pleural effusion is hermelinda ntified. Heart size appears slightly larger. Similar mediastinal contours and prominence of the left hilum. Degenerative osseous changes. Reviewed by: Sen Cornell MD on 09/28/2024 9:43 PM PST Approved by: Sen Cornell MD on 09/28/2024 9:43 PM PST Station ID: [id number]
[2024-09-28 21:46] LABS: HCT - HEMATOCRIT 37.1 % (37.0-47.0); HGB - HEMOGLOBIN 11.7 g/dL (12.0-16.0); MEAN CORPUSCULAR HEMOGLOBIN 30.9 pg (27.0-31.0); MEAN CORPUSCULAR HGB CONC 31.5 g/dL (32.0-36.0); MEAN CORPUSCULAR VOLUME 97.9 fL (81.0-99.0); MEAN PLATELET VOLUME 9.5 fL (7.9-10.8); RED BLOOD COUNT 3.79 10^6/uL (4.20-5.40); RED CELL DISTRIBUTION WIDTH 13.2 % (12.0-15.0); WHITE BLOOD COUNT 14.6 x10^3/uL (4.8-10.8)
[2024-09-28] MEDS: ASPIRIN 300 MG SUPP PR STA (21:48)
[2024-09-28] MEDS: ASPIRIN 325 MG TABLET PO STA (21:49)
[2024-09-28] MEDS: predniSONE 20 MG TABLET PO STA (23:04)
[2024-09-28] MEDS ORDERED: ONDANSETRON 4 MG/2 ML VIAL IVP PRN (23:16)
[2024-09-28] MEDS ORDERED: IPRATROPIUM/ALBUTEROL 3 ML NEB INH PRN (23:28)
[2024-09-28] MEDS: SODIUM CHLORIDE 0.9% 1,000 ML IV STA (23:28)
[2024-09-28 23:42] LABS: CHOLESTEROL 113 mg/dL; HDL CHOLESTEROL 38 mg/dL; LDL CHOLESTEROL,CALCULATED 55 mg/dL; LDL/HDL RATIO 1.4 (<4.4); TRIGLYCERIDES 99 mg/dL; VLDL CHOLESTEROL 20 mg/dL
[2024-09-28] MEDS: ENOXAPARIN 80 MG/0.8 ML SYRINGE SUBQ STA (23:46)
--- NOTE | 2024-09-28 23:57 | HISTORY & PHYSICAL EXAMINATION ---
Chief Complaint Chief Complaint Chief Complaint: AMS History of Present Illness History of Present Illness HPI Comment/Other: 84 y old female with PMH HTN, DM 2, hyperlipidemia, COPD on home oxygen BIBA due to AMS. Pt is confused and unable to provide history so most of history is by daughter at bedside. As per pt, pt was diagnosed with pneumonia last tuesday due to virus. She has been coughing with sputum and also had fever. Patient became confused today and was brought to the ER for evaluation On presenttaion , pt was hypoxic EKG showed STEMI Trop > 1000 BNP > 1000 As per Jeni ( TARYN), her daughter (POA), does not want transfer patient for any procedure or stent. Pt also have POLST and DNR/DNI In ER, pt was started on heparin gtt and later switched to lovenox Pt is admitted due to STEMI, Acute CHF exacerbation, possible PNA and hypoxia Review of Systems Status of ROS: 10 or more systems reviewed and unremarkable except as noted in history and below PFSH Medical History Medical History (Updated 09/28/24 @ 23:12 by Jeni Frances PA-C) DNR (do not resuscitate) Hyperlipidemia DM2 (diabetes mellitus, type 2) COPD (chronic obstructive pulmonary disease) Hypertension Surgical History Surgical History (Updated 07/17/24 @ 14:43 by TARYN Stevens) S/P appendectomy S/P cholecystectomy Social History Social History Smoking Status: Former smoker If you are a former smoker, when did you quit? (Date/Year): 1989 Number of Years Smoked: 35 How many cigarettes a day do you smoke? (20 cigarettes=1 Pk): 20 Do you vape?: No Relationship: Child Level: Assisted Home Mobility Equipment: Wheelchair Do you feel safe in your home environment?: Yes Suffered physical, verbal, emotional, or financial abuse?: No History of Abuse: No POLST Patient has POLST: Yes POLST Status: DNR Meds/Allgy Home Medications Ambulatory Orders Medication Instructions Recorded Confirmed clopidogrel 75 mg tablet 75 mg PO DAILY 01/28/18 07/17/24 lisinopril 2.5 mg tablet 5 mg PO DAILY 01/28/18 07/17/24 oxybutynin chloride 5 mg tablet 2.5 mg PO DAILY 01/28/18 07/17/24 ferrous sulfate 325 mg (65 mg 325 mg PO DAILY 02/22/24 07/17/24 iron) tablet,delayed release folic acid 400 mcg tablet 0.4 mg PO DAILY 02/22/24 07/17/24 gabapentin 300 mg capsule 2 cap PO BID 02/22/24 07/17/24 insulin NPH-regular 70-30 U-100 25 units subcut QPM 02/22/24 07/17/24 insulin 100 unit/mL subcutaneous pen (Humulin 70/30 U-100 KwikPen) pantoprazole 40 mg tablet,delayed 40 mg PO DAILY 02/22/24 07/17/24 release atorvastatin 10 mg tablet 10 mg PO QPM 07/17/24 07/17/24 cholecalciferol (vitamin D3) 25 25 mcg PO DAILY 07/17/24 07/17/24 mcg (1,000 unit) capsule insulin NPH isoph U-100 human 100 27 unit subcut QAM 07/17/24 07/17/24 unit/mL (3 mL) subcutaneous pen (Humulin N NPH U-100 Insulin KwikPen) albuterol sulfate 90 mcg/actuation 1 inh inhalation QID PRN shortness 07/18/24 aerosol inhaler (Ventolin HFA) of breath or wheezing #8.5 grams amoxicillin 500 mg tablet 1,000 mg (2 x 500 mg) PO TID 3 07/18/24 days #18 tabs azithromycin 500 mg tablet 500 mg PO DAILY 2 days #2 tabs 07/18/24 budesonide 160 mcg-glycopyr 9 2 inh inhalation BID #10.7 grams 07/18/24 mcg-formot 4.8 mcg/actuation HFA inhaler (Breztri Aerosphere) guaifenesin 100 mg/5 mL oral liquid 200 mg (10 mL) PO Q4H #1,800 mL 07/18/24 prednisone 20 mg tablet 40 mg (2 x 20 mg) PO DAILY 4 days 07/18/24 #8 tabs Allergies Allergies Allergy/AdvReac Type Severity Reaction Status Date / Time sulfamethoxazole (From AdvReac Severe Anaphylaxis Verified 09/28/24 18:45 Bactrim) trimethoprim (From Bactrim) AdvReac Severe Anaphylaxis Verified 09/28/24 18:45 Exam Constitutional Pt appears confused and lethargic HENMT normocephalic Eyes PERRL Chest inspection of chest normal Respiratory breath sounds equal bilaterally Cardiovascular normal heart rate noted Gastrointestinal abdomen normal to inspection Extremities normal to inspection Neurology pt is confused and does not follow command Psychiatry pt is confused Skin no rash Conclusion/Plan Problem List (1) Acute WI: Plan: A: Acute WI Acute CHF exacerbation Pneumonia Acute hypoxic respiratory failure Leukocytosis HTN DM 2 Hyperlipidemia COPD on home oxygen Plan: Admit in tele Cont cardiac monitoring Seriel trop Get Echo Start Aspirin 325 mg po qd Metoprolol 25 mg bid Lisinopril 5 mg po qd Lipitor 80 mg po qd Check lipid panel start Lovenox 80 mg sq q12h Avoid lasix due to borderline BP Monitor i/o, electrolytes Follow cx start rocephin and zithroamx Duo nebs q4h prn Start sliding scale insulin DVT prophylaxic: SCD. Pt is on lovenox Pt has POLST. DNR/DNI Pt is admitted as inpatient as more than 2 midnight stay is expected Lab Results 09/28/24 21:40 09/28/24 20:20
[2024-09-29] MEDS: INSULIN REGULAR, HUMAN 300 UNIT/3 ML PEN SUBQ SCH (00:20)
[2024-09-29] MEDS: SODIUM CHLORIDE FLUSH 0.9% 10 ML SYRINGE IVP SCH (00:47)
--- NOTE | 2024-09-29 07:42 | PHARMACY PROGRESS NOTE ---
Best Possible Medication History Admit Date and Time: 09/28/24 6072 Home Medications Medication Instructions Recorded Confirmed Type clopidogrel 75 mg tablet 75 mg PO DAILY 01/28/18 09/29/24 History oxybutynin chloride 5 mg tablet 2.5 mg PO BID 01/28/18 09/29/24 History ferrous sulfate 325 mg (65 mg 325 mg PO DAILY 02/22/24 09/29/24 History iron) tablet,delayed release gabapentin 300 mg capsule 600 mg PO BID 02/22/24 09/29/24 History insulin NPH-regular 70-30 U-100 25 units subcut QPM 02/22/24 09/29/24 History insulin 100 unit/mL subcutaneous pen (Humulin 70/30 U-100 KwikPen) pantoprazole 40 mg tablet,delayed 40 mg PO DAILY 02/22/24 09/29/24 History release atorvastatin 10 mg tablet 10 mg PO QPM 07/17/24 09/29/24 History cholecalciferol (vitamin D3) 25 25 mcg PO DAILY 07/17/24 09/29/24 History mcg (1,000 unit) capsule albuterol sulfate 90 mcg/actuation 1 inh inhalation QID PRN shortness 07/18/24 09/29/24 Rx aerosol inhaler (Ventolin HFA) of breath or wheezing #8.5 grams calcium carbonate 600 mg PO DAILY 09/29/24 09/29/24 History fluticasone fur. 100 mcg-umeclid 1 inh inhalation DAILY 09/29/24 09/29/24 History 62.5 mcg-vilant 25 mcg inhalat.powder (Trelegy Ellipta) folic acid 1 mg tablet 1 mg PO DAILY 09/29/24 09/29/24 History guaifenesin 100 mg/5 mL oral liquid 200 mg PO Q4H PRN cough 09/29/24 09/29/24 History insulin NPH-regular 70-30 U-100 27 unit subcut DAILY 09/29/24 09/29/24 History insulin 100 unit/mL subcutaneous pen (Humulin 70/30 U-100 KwikPen) lisinopril 5 mg tablet 5 mg PO DAILY 09/29/24 09/29/24 History vit C 250 mg-vit E 90 mg-zinc 40 2 tab PO DAILY 09/29/24 09/29/24 History mg-copper 1 [id number] capsule (PreserVision AREDS-2) Processed by: Pharmacy Medications reviewed in ED?: No Medication History completed: Yes Secondary Source(s): Facility MAR as ONLY source [facility] Statement: As the person ultimately responsible for medication therapy, providers are able to order a medication from an existing home medication list in [facility] via the "Reconcile Routine" prior to Confirmation of that medication by senior support analyst. Such practice is discouraged except when the physician, in their clinical judgment, deems that a medical need exists for a medication without regard to previous use.
[2024-09-29] MEDS: cefTRIAXone 1 GM in SODIUM CHLORIDE 0.9% MINIBAG 100 ML IV SCH (08:43)
[2024-09-29] MEDS: ATORVASTATIN 40 MG TABLET PO SCH (08:44)
[2024-09-29] MEDS: lisinopriL 5 MG TABLET PO SCH (08:44)
[2024-09-29] MEDS: ASPIRIN 325 MG TABLET PO SCH (08:44)
[2024-09-29] MEDS: METOPROLOL TARTRATE 25 MG TABLET PO SCH (08:44)
[2024-09-29] MEDS: CLOPIDOGREL 75 MG TABLET PO SCH (08:47)
[2024-09-29] MEDS: FUROSEMIDE 40 MG/4 ML VIAL IVP SCH (08:57)
[2024-09-29] MEDS ORDERED: ENOXAPARIN 80 MG/0.8 ML SYRINGE SUBQ SCH (09:00)
[2024-09-29] MEDS: AZITHROMYCIN INJ 500 MG in SODIUM CHLORIDE 0.9% 250 ML IV SCH (09:34)
[2024-09-29 09:49] LABS: HCT - HEMATOCRIT 42.9 % (37.0-47.0); HGB - HEMOGLOBIN 13.2 g/dL (12.0-16.0); MEAN CORPUSCULAR HGB CONC 30.8 g/dL (32.0-36.0); MEAN CORPUSCULAR VOLUME 100.7 fL (81.0-99.0); MEAN PLATELET VOLUME 9.7 fL (7.9-10.8); RED BLOOD COUNT 4.26 10^6/uL (4.20-5.40); RED CELL DISTRIBUTION WIDTH 13.2 % (12.0-15.0); WHITE BLOOD COUNT 18.2 x10^3/uL (4.8-10.8)
--- NOTE | 2024-09-29 10:11 | PROVIDER PROGRESS NOTE ---
Subjective Subjective Subjective: Patient is a 84-year-old female with a history of COPD on 3 L of oxygen at baseline, mild cognitive impairment, hyperlipidemia, hypertension who presented yesterday for worsening confusion. She was diagnosed with human metapneumovirus on the , and discharged back to [facility] with steroids and DuoNeb treatments. At [facility], she continued to decline, until she was brought in for altered mentation. ER documentation was reviewed: She was lethargic, and not speaking or responding. Troponin was done which was greater than 1000. EKG showed diffuse ST elevations in leads V1 through V4. This EKG has not been uploaded into the system, so I cannot review it further. However, ER documentation states that they spoke with hospice administrator Dr. Tejeda from [facility]. The DPOA was spoken with, and they did not want patient to be transferred for STEMI protocol, for PCI, etc. Plan was to treat medically with Lovenox. This morning, I spoke with patient's daughter, as well as son-in-law were present in the room. Patient continues to be altered. She has shallow breathing, with audible crackles, as well as gurgling noises heard. She does wake to voice, but then goes back to sleep. Patient is a DNR. Family would like comfort measures at this time. We talked about the scopolamine patch, and how it can make the patient more altered, less like herself. Patient family is okay with this. Patient is too altered to swallow, so we will continue to hold the aspirin, the beta-cande, lisinopril, the Plavix at this time. Current Medications Current Medications Current Medications: Current Medications Generic Name Dose Route Start Last Admin Trade Name Freq PRN Reason Stop Dose Admin Albuterol/Ipratropium 3 ml 09/28/24 23:28 Ipratropium/Albuterol 3 Ml Neb INH RTQ4H PRN Wheezing Aspirin 325 mg 09/29/24 09:00 Aspirin 325 Mg Tablet PO DAILY JEANNETTE Atorvastatin Calcium 80 mg 09/29/24 09:00 Atorvastatin 40 Mg Tablet PO DAILY JEANNETTE Clopidogrel Bisulfate 75 mg 09/29/24 09:00 Clopidogrel 75 Mg Tablet PO DAILY JEANNETTE Enoxaparin Sodium 80 mg 09/29/24 11:00 Enoxaparin 80 Mg/0.8 Ml Syringe SUBQ Q12H JEANNETTE Furosemide 40 mg 09/29/24 08:00 09/29/24 08:57 Furosemide 40 Mg/4 Ml Vial IVP 40 mg BIDDIURETIC JEANNETTE Administration Ceftriaxone Sodium 1 gm/ 100 mls @ 200 mls/hr 09/29/24 09:00 09/29/24 08:43 Sodium Chloride IV 200 mls/hr DAILY JEANNETTE Administration Azithromycin 500 mg/ Sodium 250 mls @ 250 mls/hr 09/29/24 09:00 09/29/24 09:34 Chloride IV 250 mls/hr DAILY JEANNETTE Administration Insulin Human Regular 1 - 5 unit 09/29/24 00:00 09/29/24 05:51 Insulin Regular, Human 300 Unit/3 Ml Pen SUBQ Not Given Q6HR [facility] Protocol Lisinopril 5 mg 09/29/24 09:00 Lisinopril 5 Mg Tablet PO DAILY [facility] Metoprolol Tartrate 25 mg 09/29/24 09:00 Metoprolol Tartrate 25 Mg Tablet PO BID [facility] Ondansetron HCl 4 mg 09/28/24 23:16 Ondansetron 4 Mg/2 Ml Vial IVP Q6HR PRN Nausea / Vomiting Sodium Chloride 10 ml 09/28/24 23:16 Sodium Chloride Flush 0.9% 10 Ml Syringe IVP PRN PRN NEEDED PER PROVIDER ORDERS Sodium Chloride 10 ml 09/29/24 01:00 09/29/24 08:45 Sodium Chloride Flush 0.9% 10 Ml Syringe IVP 10 ml 0100,[id number],1700 JEANNETTE Administration Objective Vital Signs/Intake & Output Reviewed Vital Signs: Yes Vital Signs: Vital Signs x48h Temp Pulse Resp BP Pulse Ox O2 Flow Rate 09/29/24 09:00 97.9 F 131 H 16 123/77 97 1 09/29/24 05:44 98.2 F 98 16 121/78 98 1 Intake & Output: Intake & Output 09/26/24 09/27/24 09/28/24 09/29/24 23:59 23:59 23:59 23:59 Output Total 150 / 150 Balance -150 / -150 Weight (kg) 79 kg 75 kg Objective General Appearance: positive Mild distress, Lethargic and Other (Patient is in mild respiratory distress, audible crackles and gurgling noted) Eyes Bilateral: positive Normal inspection and PERRL ENT: positive ENT inspection nml and Pharynx nml Neck: positive Nml inspection Respiratory: positive Chest non-tender and Rales (Diffuse crackles noted) Cardiovascular: positive Regular rate & rhythm, No murmur and No gallop Abdomen: positive Non-tender; negative Guarding, Hepatomegaly, Splenomegaly or Mass Back: positive Nml inspection; negative CVA tenderness (R) or CVA tenderness (L) Skin: positive Color nml, No rash, Warm and Dry Extremities: positive No pedal edema; negative Calf tenderness Neurologic/Psychiatric: positive Disoriented to person, Disoriented to place and Disoriented to time Lab Results 09/29/24 09:33 09/28/24 20:20 Other Labs: Lab Results x24hrs 09/29/24 09/29/24 09/29/24 Range/Units 09:33 05:40 05:39 WBC 18.2 H (4.8-10.8) x10^3/uL RBC 4.26 (4.20-5.40) 10^6/uL Hgb 13.2 (12.0-16.0) g/dL Hct 42.9 (37.0-47.0) % MCV 100.7 H (81.0-99.0) fL MCH 31.0 (27.0-31.0) pg MCHC 30.8 L (32.0-36.0) g/dL RDW 13.2 (12.0-15.0) % Plt Count 346 (130-450) 10^3/uL MPV 9.7 (7.9-10.8) fL Neut # (Auto) (1.5-6.6) 10^3/uL Lymph # (Auto) (1.5-3.5) 10^3/uL [place] # (Auto) (0.0-1.0) 10^3/uL Eos # (Auto) (0.0-0.7) 10^3/uL Baso # (Auto) (0.0-0.1) 10^3/uL Absolute Nucleated RBC x10^3/uL Nucleated RBC % /100WBC APTT 28.2 (24.9-33.3) secs VBG pH (7.31-7.41) VBG pCO2 (41-51) mmHg VBG pO2 (25-47) mmHg VBG HCO3 (23-28) mmol/L VBG Total CO2 (24-29) mmol/L VBG O2 Saturation (60-80) % VBG Base Excess (-2 - +2) mmol/L Sodium (135-145) mmol/L Potassium (3.5-4.5) mmol/L Chloride (101-111) mmol/L Carbon Dioxide (21-32) mmol/L Anion Gap (6-13) BUN (6-20) mg/dL Creatinine (0.6-1.3) mg/dL Estimated GFR (MDRD) (>89) Glucose (74-104) mg/dL POC Whole Bld Glucose 118 (70-100) mg/dL Calcium (8.5-10.3) mg/dL Magnesium (1.7-2.3) mg/dL Total Bilirubin (0.2-1.0) mg/dL AST (10-42) IU/L ALT (10-60) IU/L Alkaline Phosphatase (42-121) IU/L Troponin I High Sens 714.6 H* (2.3-14.8) ng/L B-Natriuretic Peptide (5-100) pg/mL Total Protein (6.4-8.9) g/dL Albumin (3.2-5.5) g/dL Globulin (2.1-4.2) g/dL Albumin/Globulin Ratio (1.0-2.2) Triglycerides mg/dL Cholesterol ( - 200) mg/dL LDL Cholesterol, Calc ( - 129) mg/dL VLDL Cholesterol mg/dL HDL Cholesterol (60 - ) mg/dL LDL/HDL Ratio (<4.4) Cholesterol/HDL Ratio (<4.4) 09/29/24 09/28/24 09/28/24 Range/Units 00:29 21:40 20:20 WBC 14.6 H 15.9 H (4.8-10.8) x10^3/uL RBC 3.79 L 3.74 L (4.20-5.40) 10^6/uL Hgb 11.7 L 11.6 L (12.0-16.0) g/dL Hct 37.1 37.1 (37.0-47.0) % MCV 97.9 99.2 H (81.0-99.0) fL MCH 30.9 31.0 (27.0-31.0) pg MCHC 31.5 L 31.3 L (32.0-36.0) g/dL RDW 13.2 13.1 (12.0-15.0) % Plt Count 312 319 (130-450) 10^3/uL MPV 9.5 9.4 (7.9-10.8) fL Neut # (Auto) 11.9 H (1.5-6.6) 10^3/uL Lymph # (Auto) 2.9 (1.5-3.5) 10^3/uL [place] # (Auto) 0.9 (0.0-1.0) 10^3/uL Eos # (Auto) 0.1 (0.0-0.7) 10^3/uL Baso # (Auto) 0.1 (0.0-0.1) 10^3/uL Absolute Nucleated RBC 0.00 x10^3/uL Nucleated RBC % 0.0 /100WBC APTT 23.9 L (24.9-33.3) secs VBG pH 7.456 H (7.31-7.41) VBG pCO2 42.2 (41-51) mmHg VBG pO2 50.2 H (25-47) mmHg VBG HCO3 30.0 H (23-28) mmol/L VBG Total CO2 31.3 H (24-29) mmol/L VBG O2 Saturation 78.0 (60-80) % VBG Base Excess 5.9 H (-2 - +2) mmol/L Sodium 138 (135-145) mmol/L Potassium 3.9 (3.5-4.5) mmol/L Chloride 102 (101-111) mmol/L Carbon Dioxide 29 (21-32) mmol/L Anion Gap 7.0 (6-13) BUN 20 (6-20) mg/dL Creatinine 0.6 (0.6-1.3) mg/dL Estimated GFR (MDRD) 95 (>89) Glucose 112 H (74-104) mg/dL POC Whole Bld Glucose 107 (70-100) mg/dL Calcium 9.0 (8.5-10.3) mg/dL Magnesium 2.0 (1.7-2.3) mg/dL Total Bilirubin 0.7 (0.2-1.0) mg/dL AST 11 (10-42) IU/L ALT 12 (10-60) IU/L Alkaline Phosphatase 64 (42-121) IU/L Troponin I High Sens 1001.3 H* (2.3-14.8) ng/L B-Natriuretic Peptide 1063 H (5-100) pg/mL Total Protein 6.0 L (6.4-8.9) g/dL Albumin 3.2 (3.2-5.5) g/dL Globulin 2.8 (2.1-4.2) g/dL Albumin/Globulin Ratio 1.1 (1.0-2.2) Triglycerides 99 mg/dL Cholesterol 113 ( - 200) mg/dL LDL Cholesterol, Calc 55 ( - 129) mg/dL VLDL Cholesterol 20 mg/dL HDL Cholesterol 38 L (60 - ) mg/dL LDL/HDL Ratio 1.4 (<4.4) Cholesterol/HDL Ratio 3.0 (<4.4) / Range/Units 20:04 WBC (4.8-10.8) x10^3/uL RBC (4.20-5.40) 10^6/uL Hgb (12.0-16.0) g/dL Hct (37.0-47.0) % MCV (81.0-99.0) fL MCH (27.0-31.0) pg MCHC (32.0-36.0) g/dL RDW (12.0-15.0) % Plt Count (130-450) 10^3/uL MPV (7.9-10.8) fL Neut # (Auto) (1.5-6.6) 10^3/uL Lymph # (Auto) (1.5-3.5) 10^3/uL [place] # (Auto) (0.0-1.0) 10^3/uL Eos # (Auto) (0.0-0.7) 10^3/uL Baso # (Auto) (0.0-0.1) 10^3/uL Absolute Nucleated RBC x10^3/uL Nucleated RBC % /100WBC APTT (24.9-33.3) secs VBG pH (7.31-7.41) VBG pCO2 (41-51) mmHg VBG pO2 (25-47) mmHg VBG HCO3 (23-28) mmol/L VBG Total CO2 (24-29) mmol/L VBG O2 Saturation (60-80) % VBG Base Excess (-2 - +2) mmol/L Sodium (135-145) mmol/L Potassium (3.5-4.5) mmol/L Chloride (101-111) mmol/L Carbon Dioxide (21-32) mmol/L Anion Gap (6-13) BUN (6-20) mg/dL Creatinine (0.6-1.3) mg/dL Estimated GFR (MDRD) (>89) Glucose (74-104) mg/dL POC Whole Bld Glucose 120 (70-100) mg/dL Calcium (8.5-10.3) mg/dL Magnesium (1.7-2.3) mg/dL Total Bilirubin (0.2-1.0) mg/dL AST (10-42) IU/L ALT (10-60) IU/L Alkaline Phosphatase (42-121) IU/L Troponin I High Sens (2.3-14.8) ng/L B-Natriuretic Peptide (5-100) pg/mL Total Protein (6.4-8.9) g/dL Albumin (3.2-5.5) g/dL Globulin (2.1-4.2) g/dL Albumin/Globulin Ratio (1.0-2.2) Triglycerides mg/dL Cholesterol ( - 200) mg/dL LDL Cholesterol, Calc ( - 129) mg/dL VLDL Cholesterol mg/dL HDL Cholesterol (60 - ) mg/dL LDL/HDL Ratio (<4.4) Cholesterol/HDL Ratio (<4.4) Diagnostic Imaging Diagnostic Imaging Results: positive Final report reviewed Assessment/Plan Problem List (1) Acute CT: Impression: Per ER documentation, EKG showed elevations in V1-V4. Individual Pension Adviser on-call was spoken with, STEMI protocol was initiated. DPOA, daughter, stated that they did not want the patient to be transferred as per her goals of care, and wishes. Plan was treatment with subcu Lovenox, trending of the troponin, getting an ECHO here. Discussion with patient's family about goals of care this morning with myself. At this time, they have opted for comfort measures only. They understand that she has had a CT, she may have heart failure, etc. They are interested in a Hospice informational. Hospice has been consulted. Will order scopolamine patch due to excessive secretions after discussion with family (she may become more altered). Qualifiers: Involved coronary artery: unspecified coronary artery Myocardial infarction type: ST elevation myocardial infarction Qualified Code(s): I21.3 - ST elevation (STEMI) myocardial infarction of unspecified site (2) Acute metabolic encephalopathy: Impression: Patient remains lethargic, altered. She is only responsive to verbal stimuli. MRI from 07/07 was reviewed, as well as head CT from 03/07. Initial MRI showed large lateral ventricles, concern for hydrocephalus. Repeat CT showed improvement of the size of the ventricles. CT head was not done on admission. Will not order at this time as patient is comfort measures only. Could be metabolic - i.e. the CT, vs. the pneumonia. (3) Severe chronic obstructive pulmonary disease: Impression: Continue oxygen for comfort at this time. No active wheezing noted. She was started on Rocephin and azithromycin initially for possible community acquired pneumonia in setting of hypoxia, and leukocytosis. (4) Hypertension: Impression: Patient hypotensive at this time. Hold antihypertensives. Qualifiers: Hypertension type: unspecified Qualified Code(s): I10 - Essential (primary) hypertension (5) DM2 (diabetes mellitus, type 2): Impression: On insulin in the outpatient. Currently not eating due to altered mentation. Continue to monitor. Qualifiers: Diabetes mellitus complication status: without complication Diabetes mellitus color room attendant insulin use: unspecified color room attendant insulin use status Q ualified Code(s): E11.9 - Type 2 diabetes mellitus without complications (6) Atrial fibrillation: Impression: Patient with episodes of paroxysmal atrial fibrillation noted on telemtery. Qualifiers: Atrial fibrillation type: paroxysmal Qualified Code(s): I48.0 - Paroxysmal atrial fibrillation
[2024-09-29] MEDS: ENOXAPARIN 80 MG/0.8 ML SYRINGE SUBQ SCH (11:16)
[2024-09-29] MEDS: SCOPOLAMINE PATCH TOP SCH (14:14)
[2024-09-29 14:43] LABS: BILIRUBIN,URINE NEGATIVE (NEGATIVE); GLUCOSE, URINE (UA) NEGATIVE (NEGATIVE); KETONES,URINE (UA) 15 mg/dL (NEGATIVE); LEUKOCYTE ESTERASE, URINE SMALL (NEGATIVE); NITRITE,URINE NEGATIVE (NEGATIVE); OCCULT BLOOD,URINE TRACE-LYSE (NEGATIVE); PROTEIN,URINE NEGATIVE (NEGATIVE); UROBILINOGEN,URINE 0.2 (NORMAL) E.U./dL (NORMAL)
[2024-09-29 14:44] LABS: CLARITY,URINE HAZY (CLEAR)
[2024-09-29 15:11] LABS: BACTERIA,URINE Many /HPF (None Seen); SQUAMOUS EPITHELIAL CELL,UR RARE Squamous (<= Few)
[2024-09-30] MEDS: SODIUM CHLORIDE FLUSH 0.9% 10 ML SYRINGE IVP PRN (06:33)
[2024-09-30 09:20] LABS: HCT - HEMATOCRIT 38.2 % (37.0-47.0); HGB - HEMOGLOBIN 11.9 g/dL (12.0-16.0); MEAN CORPUSCULAR HEMOGLOBIN 30.7 pg (27.0-31.0); MEAN CORPUSCULAR HGB CONC 31.2 g/dL (32.0-36.0); MEAN CORPUSCULAR VOLUME 98.5 fL (81.0-99.0); MEAN PLATELET VOLUME 9.6 fL (7.9-10.8); RED BLOOD COUNT 3.88 10^6/uL (4.20-5.40); WHITE BLOOD COUNT 12.5 x10^3/uL (4.8-10.8)
[2024-09-30 09:29] LABS: CREATININE 0.5 mg/dL (0.6-1.3); POTASSIUM 3.8 mmol/L (3.5-4.5)
--- NOTE | 2024-09-30 11:14 | PROVIDER PROGRESS NOTE ---
Subjective Subjective Subjective: Patient is a 84-year-old female with a history of COPD on 3 L of oxygen at baseline, mild cognitive impairment, hyperlipidemia, hypertension who presented yesterday for worsening confusion. She was diagnosed with human metapneumovirus on the , and discharged back to [facility] with steroids and DuoNeb treatments. At [facility], she continued to decline, until she was brought in for altered mentation. ER documentation was reviewed: She was lethargic, and not speaking or responding. Troponin was done which was greater than 1000. EKG showed diffuse ST elevations in leads V1 through V4. This EKG has not been uploaded into the system, so I cannot review it further. However, ER documentation states that they spoke with table keeper Dr. Tejeda from [facility]. The DPOA was spoken with, and they did not want patient to be transferred for STEMI protocol, for PCI, etc. Plan was to treat medically with Lovenox. Yesterday, I had a long discussion with the daughter at bedside, as well as her son-in-law. They had initially wanted just comfort measures. We talked about the scopolamine patch, and how that could worsen her mentation, and they were okay with this. This morning, she is a little bit more responsive, turning her head towards her daughter. As such, they do want to conservatively treat her without any heroic measures or escalation of care. Will continue her therapeutic Lovenox, as well as antibiotics for her pneumonia and urinary tract infection. Will d/c the scopolamine patch at this time. Current Medications Current Medications Current Medications: Current Medications Generic Name Dose Route Start Last Admin Trade Name Freq PRN Reason Stop Dose Admin Albuterol/Ipratropium 3 ml 09/28/24 23:28 Ipratropium/Albuterol 3 Ml Neb INH RTQ4H PRN Wheezing Aspirin 325 mg 09/29/24 09:00 09/29/24 10:13 Aspirin 325 Mg Tablet PO Not Given DAILY JEANNETTE Enoxaparin Sodium 80 mg 09/29/24 11:00 09/29/24 22:29 Enoxaparin 80 Mg/0.8 Ml Syringe SUBQ 80 mg Q12H JEANNETTE Administration Furosemide 40 mg 09/29/24 08:00 09/30/24 06:32 Furosemide 40 Mg/4 Ml Vial IVP 40 mg BIDDIURETIC JEANNETTE Administration Ceftriaxone Sodium 1 gm/ 100 mls @ 200 mls/hr 09/29/24 09:00 09/30/24 08:28 Sodium Chloride IV 200 mls/hr DAILY JEANNETTE Administration Azithromycin 500 mg/ Sodium 250 mls @ 250 mls/hr 09/29/24 09:00 09/30/24 09:02 Chloride IV 250 mls/hr DAILY JEANNETTE Administration Insulin Human Regular 1 - 5 unit 09/29/24 00:00 09/30/24 06:27 Insulin Regular, Human 300 Unit/3 Ml Pen SUBQ 2 unit Q6HR JEANNETTE Administration Protocol Ondansetron HCl 4 mg 09/28/24 23:16 Ondansetron 4 Mg/2 Ml Vial IVP Q6HR PRN Nausea / Vomiting Sodium Chloride 10 ml 09/28/24 23:16 09/30/24 06:33 Sodium Chloride Flush 0.9% 10 Ml Syringe IVP 10 ml PRN PRN Administration NEEDED PER PROVIDER ORDERS Sodium Chloride 10 ml 09/29/24 01:00 09/30/24 08:28 Sodium Chloride Flush 0.9% 10 Ml Syringe IVP 10 ml 0100,0900,1700 JEANNETTE Administration Objective Vital Signs/Intake & Output Reviewed Vital Signs: Yes Vital Signs: Vital Signs x48h Temp Pulse Resp BP Pulse Ox O2 Flow Rate 09/30/24 10:27 97.2 F L 68 17 136/78 H 98 09/30/24 06:04 98.2 F 91 20 149/74 H 98 1 Intake & Output: Intake & Output 09/27/24 09/28/24 09/29/24 09/30/24 23:59 23:59 23:59 23:59 Intake Total 350 / 350 Output Total 1250 / 1250 1550 / 1550 Balance -900 / -900 -1550 / -1550 Weight (kg) 79 kg 75 kg Objective General Appearance: positive Mild distress, Lethargic and Other (Patient is in mild respiratory distress, audible crackles and gurgling noted) Eyes Bilateral: positive Normal inspection and PERRL ENT: positive ENT inspection nml and Pharynx nml Neck: positive Nml inspection Respiratory: positive Chest non-tender and Rales (Diffuse crackles noted) Cardiovascular: positive Regular rate & rhythm, No murmur and No gallop Abdomen: positive Non-tender; negative Guarding, Hepatomegaly, Splenomegaly or Mass Back: positive Nml inspection; negative CVA tenderness (R) or CVA tenderness (L) Skin: positive Color nml, No rash, Warm and Dry Extremities: positive No pedal edema; negative Calf tenderness Neurologic/Psychiatric: positive Disoriented to person, Disoriented to place and Disoriented to time Lab Results 09/30/24 08:59 09/30/24 08:59 Other Labs: Lab Results x24hrs 09/30/24 09/30/24 09/29/24 Range/Units 08:59 06:03 23:45 WBC 12.5 H (4.8-10.8) x10^3/uL RBC 3.88 L (4.20-5.40) 10^6/uL Hgb 11.9 L (12.0-16.0) g/dL Hct 38.2 (37.0-47.0) % MCV 98.5 (81.0-99.0) fL MCH 30.7 (27.0-31.0) pg MCHC 31.2 L (32.0-36.0) g/dL RDW 13.0 (12.0-15.0) % Plt Count 363 (130-450) 10^3/uL MPV 9.6 (7.9-10.8) fL Sodium 142 (135-145) mmol/L Potassium 3.8 (3.5-4.5) mmol/L Chloride 102 (101-111) mmol/L Carbon Dioxide 25 (21-32) mmol/L Anion Gap 15.0 H (6-13) BUN 22 H (6-20) mg/dL Creatinine 0.5 L (0.6-1.3) mg/dL Estimated GFR (MDRD) 118 (>89) Glucose 242 H (74-104) mg/dL POC Whole Bld Glucose 208 203 (70-100) mg/dL Calcium 9.0 (8.5-10.3) mg/dL Troponin I High Sens 352.0 H* (2.3-14.8) ng/L Urine Color Urine Clarity (CLEAR) Urine pH (5.0-7.5) PH Ur Specific [place] (1.002-1.030) Urine Protein (NEGATIVE) mg/dL Urine Glucose (UA) (NEGATIVE) mg/dL Urine Ketones (NEGATIVE) mg/dL Urine Occult Blood (NEGATIVE) Urine Nitrite (NEGATIVE) Urine Bilirubin (NEGATIVE) Urine Urobilinogen (NORMAL) E.U./dL Ur Leukocyte Esterase (NEGATIVE) Urine RBC (0-5) /HPF Urine WBC (0-5) /HPF Ur Squamous Epith Cells (<= Few) Urine Bacteria (None Seen) /HPF Urine Yeast Ur Microscopic Review Urine Culture Comments 09/29/24 09/29/24 09/29/24 Range/Units 18:02 14:11 11:32 WBC (4.8-10.8) x10^3/uL RBC (4.20-5.40) 10^6/uL Hgb (12.0-16.0) g/dL Hct (37.0-47.0) % MCV (81.0-99.0) fL MCH (27.0-31.0) pg MCHC (32.0-36.0) g/dL RDW (12.0-15.0) % Plt Count (130-450) 10^3/uL MPV (7.9-10.8) fL Sodium (135-145) mmol/L Potassium (3.5-4.5) mmol/L Chloride (101-111) mmol/L Carbon Dioxide (21-32) mmol/L Anion Gap (6-13) BUN (6-20) mg/dL Creatinine (0.6-1.3) mg/dL Estimated GFR (MDRD) (>89) Glucose (74-104) mg/dL POC Whole Bld Glucose 196 162 (70-100) mg/dL Calcium (8.5-10.3) mg/dL Troponin I High Sens (2.3-14.8) ng/L Urine Color YELLOW Urine Clarity HAZY (CLEAR) Urine pH 6.0 (5.0-7.5) PH Ur Specific [place] 1.015 (1.002-1.030) Urine Protein NEGATIVE (NEGATIVE) mg/dL Urine Glucose (UA) NEGATIVE (NEGATIVE) mg/dL Urine Ketones 15 H (NEGATIVE) mg/dL Urine Occult Blood TRACE-LYSE (NEGATIVE) Urine Nitrite NEGATIVE (NEGATIVE) Urine Bilirubin NEGATIVE (NEGATIVE) Urine Urobilinogen 0.2 (NORMAL) (NORMAL) E.U./dL Ur Leukocyte Esterase SMALL H (NEGATIVE) Urine RBC 6-10 H (0-5) /HPF Urine WBC 11-25 H (0-5) /HPF Ur Squamous Epith Cells RARE Squamous (<= Few) Urine Bacteria Many H (None Seen) /HPF Urine Yeast Ur Microscopic Review INDICATED Urine Culture Comments INDICATED Diagnostic Imaging Diagnostic Imaging Results: positive Final report reviewed Assessment/Plan Problem List (1) Acute SD: Impression: Per ER documentation, EKG showed elevations in V1-V4. Ms Access Database Developer on-call was spoken with, STEMI protocol was initiated. DPKRANTHI, daughter, stated that they did not want the patient to be transferred as per her goals of care, and wishes. Plan was treatment with subcu Lovenox, trending of the troponin, getting an ECHO here. Patient is still unable to swallow. Holding aspirin, lisinopril, beta-cande at this time. Discussion with patient's family about goals of care this morning with myself. They want medical managment without escalation of care, with a more comfort- based approach. They understand that she has had a SD, she may have heart failure, etc. They are interested in a Hospice informational. Hospice has been consulted. Qualifiers: Involved coronary artery: unspecified coronary artery Myocardial infarction type: ST elevation myocardial infarction Qualified Code(s): I21.3 - ST elevation (STEMI) myocardial infarction of unspecified site (2) Acute metabolic encephalopathy: Impression: Patient remains lethargic, altered. She is responsive to verbal stimuli. She is not following commands. MRI from 07/07 was reviewed, as well as head CT from 03/07. Initial MRI showed large lateral ventricles, concern for hydrocephalus. Repeat CT showed improvement of the size of the ventricles. CT head was not done on admission. Will discuss with family about possibility about repeating CT head. Could be metabolic - i.e. the SD, vs. the pneumonia vs. urinary tract infection, which are all improving. (3) Severe chronic obstructive pulmonary disease: Impression: Continue oxygen. No active wheezing noted. Continue Rocephin and azithromycin for possible community acquired pneumonia in setting of hypoxia, and leukocytosis. (4) UTI (urinary tract infection): Impression: Continue Rocephin. Qualifiers: Hematuria presence: without hematuria Urinary tract infection type: s ite unspecified Qualified Code(s): N39.0 - Urinary tract infection, site not specified (5) Hypertension: Impression: Hold antihypertensives. Qualifiers: Hypertension type: unspecified Qualified Code(s): I10 - Essential (primary) hypertension (6) DM2 (diabetes mellitus, type 2): Impression: On insulin in the outpatient. Currently not eating due to altered mentation. Continue to monitor. Qualifiers: Diabetes mellitus complication status: without complication Diabetes mellitus moth exterminator insulin use: unspecified custodial insulin use status Q ualified Code(s): E11.9 - Type 2 diabetes mellitus without complications (7) Atrial fibrillation: Impression: Patient with episodes of paroxysmal atrial fibrillation noted on telemtery. Continue to monitor. Qualifiers: Atrial fibrillation type: paroxysmal Qualified Code(s): I48.0 - Paroxysmal atrial fibrillation
[2024-09-30] MEDS: INSULIN LISPRO 300 UNIT/3 ML PEN SUBQ SCH (11:42)
[2024-09-30] MEDS ORDERED: iohexoL-300 100 ML VIAL ONE (14:05)
--- NOTE | 2024-09-30 14:53 | CT Report ---
PROCEDURE: CT Head W/O Stroke Protocol INDICATIONS: R sided weakneses TECHNIQUE: Noncontrast 4.5 mm thick angled axial sections acquired from the foramen magnum to the vertex, with c oronal reformats. For radiation dose reduction, the following was used: automated exposure control, adjustment of mA and/or kV according to patient size. COMPARISON: 03/02/2024, 06/12/2023. Correlation is made with the accompanying imaging. FINDINGS: Image quality: The study is moderately limited by motion artifact. CSF spaces: Basal cisterns are patent. No extra-axial fluid collections. The lateral ventricles dem onstrate stable prominence. Brain: There is abnormal low density seen involving the anterolateral aspect of the right temporal l obe. No midline shift. No intracranial masses or hemorrhage. Hernandez-white matter interface is normal. Skull and face: Calvarium and visualized facial bones are intact, without suspicious lesions. Sinuses: Visualized sinuses and mastoids are clear. IMPRESSION: There is new abnormal low density seen within the anterolateral aspect of the right temporal lobe. Th is is attributed to subacute infarct. No acute intracranial hemorrhage is seen. The study is limited by motion artifact. Stable symmetric prominent lateral ventricles. Note: Case discussed by telephone with Dr. Elizabeth at 2:51 PM [place] time on 09/30/2024. This study fulfills neurological imaging criteria for inclusion or exclusion of acute stroke therapie s based on available published neurological imaging guidelines. Reviewed by: Que Montesinos MD on 09/30/2024 1:52 PM [place] Approved by: Que Montesinos MD on 09/30/2024 1:52 PM [facility] Station ID: [id number]
--- NOTE | 2024-09-30 14:58 | CT Report ---
PROCEDURE: CT Angio Head/Neck INDICATIONS: rule out stroke TECHNIQUE: After the administration of intravenous contrast, 1 mm thick sections acquired from the aortic arch t hrough the [place] [facility] [place]. 3-dimensional xstsmcd-tclyddori-lrrqscfryt (MIP) and/or volume renderin g reformats were acquired of the central intracranial vasculature and neck separately. For radiation dose reduction, the following was used: automated exposure control, adjustment of mA and/or kV acco rding to patient size. CONTRAST: omni 300, 100 COMPARISON: Correlation is made with the accompanying imaging. FINDINGS: Image quality: Diagnostic. HEAD CT: CSF Spaces: Basal cisterns are patent. No extra-axial fluid collections. Ventricles are normal in size and shape. Brain: There is new low-density seen involving the right temporal lobe anteriorly and laterally, whic h is better seen on the accompanying noncontrast head CT. Skull and face: Calvarium and visualized facial bones appear intact, without suspicious lesions. Sinuses: Visualized sinuses and mastoids are clear. HEAD CT ANGIOGRAPHY: Anterior circulation: Intracranial internal carotid arteries are normal in size and flow. The flow within the paired anterior cerebral arteries is normal and symmetric. There is potential occlusion o f the right M2 branch, as on series 12 image 45. The flow within the middle cerebral arteries is othe rwise normal and symmetric. The anterior communicating artery is seen. No aneurysms are seen. Posterior circulation: Visualized portions of the vertebral arteries demonstrate normal caliber, and join to form a normal appearing basilar artery. Flow within the posterior cerebral arteries is norm al and symmetric. No aneurysms are seen. NECK CT ANGIOGRAPHY: Carotid system: The great vessels demonstrate a conventional anatomy as they arise from the aortic a rch. There is occlusion of the proximal aspect of the left subclavian artery. 4 flow is seen within t he more distal left subclavian artery. The origins of the common carotid arteries appear patent. The common carotid arteries demonstrate normal caliber and courses. The bifurcation regions demonstrate d atherosclerotic irregularity and calcification. There is 70-80% narrowing seen involving the origin of the left internal carotid artery. No helically significant stenosis can be seen on the right. Posterior circulation: The origins of the vertebral arteries both appear widely patent. There is poo r flow within the left vertebral artery compared to the right. Both vertebral arteries are symmetric and normal caliber. Soft tissues: Visualized neck soft tissues demonstrate no suspicious abnormalities. Bones: No suspicious bony lesions. Visualized cervical spine appears normally aligned. At least mo derate cervical spine degenerative change can be seen. IMPRESSION: There is a new infarction seen involving the right temporal lobe is better seen on the accompanying n oncontrast head CT. There is a potential associated occlusion of a right M2 branch, although this is not well seen. There is 70-80% narrowing seen involving origin of the left common carotid artery. There is occlusion of the proximal left subclavian artery, with poor flow within the left vertebral a rtery. Subclavian steal syndrome is suspected based on these imaging findings. Note: Case discussed by telephone with Dr. Elizabeth at 2:51 PM [place] time on 09/30/2024. The estimate of stenosis included in the report of the imaging study was calculated using the NASCET method Reviewed by: Que Montesinos MD on 09/30/2024 1:56 PM [place] Approved by: Que Montesinos MD on 09/30/2024 1:56 PM [facility] Station ID: [id number]
[2024-09-30] MEDS: iohexoL-300 100 ML VIAL IVP ONE (15:08)
[2024-09-30] MEDS: INSULIN REGULAR, HUMAN 300 UNIT/3 ML PEN SUBQ SCH (18:47)
[2024-10-01 04:52] LABS: HCT - HEMATOCRIT 41.1 % (37.0-47.0); HGB - HEMOGLOBIN 12.7 g/dL (12.0-16.0); MEAN CORPUSCULAR HEMOGLOBIN 30.3 pg (27.0-31.0); MEAN CORPUSCULAR HGB CONC 30.9 g/dL (32.0-36.0); MEAN CORPUSCULAR VOLUME 98.1 fL (81.0-99.0); MEAN PLATELET VOLUME 9.5 fL (7.9-10.8); RED BLOOD COUNT 4.19 10^6/uL (4.20-5.40); RED CELL DISTRIBUTION WIDTH 12.7 % (12.0-15.0)
[2024-10-01 05:15] LABS: CALCIUM 9.4 mg/dL (8.5-10.3); CREATININE 0.5 mg/dL (0.6-1.3); POTASSIUM 3.7 mmol/L (3.5-4.5)
--- NOTE | 2024-10-01 11:05 | PROVIDER PROGRESS NOTE ---
Subjective Subjective Subjective: Patient is a 84-year-old female with a history of COPD on 3 L of oxygen at baseline, mild cognitive impairment, hyperlipidemia, hypertension who presented yesterday for worsening confusion. She was diagnosed with human metapneumovirus on the , and discharged back to [facility] with steroids and DuoNeb treatments. At [facility], she continued to decline, until she was brought in for altered mentation. ER documentation was reviewed: She was lethargic, and not speaking or responding. Troponin was done which was greater than 1000. EKG showed diffuse ST elevations in leads V1 through V4. This EKG has not been uploaded into the system, so I cannot review it further. However, ER documentation states that they spoke with student services advisor Dr. Tejeda from [facility]. The DPOA was spoken with, and they did not want patient to be transferred for STEMI protocol, for PCI, etc. Plan was to treat medically with Lovenox. Yesterday, patient initially was a little bit more responsive, turning her head towards her daughter. As such, they do want to conservatively treat her without any heroic measures or escalation of care. Will continue her therapeutic Lovenox, as well as antibiotics for her pneumonia and urinary tract infection. Will d/c the scopolamine patch at this time. Spoke with the family about getting a CT scan of the head to complete workup as outlined below. CT head, CTA was done, and it did show a new infarction, subacute, involving the right temporal lobe. There is also potential occlusion of the right M2 branch, as well as 70 to 80% narrowing of the left common carotid artery. There is occlusion of the proximal left subclavian artery with poor flow within the left vertebral artery, subclavian steal syndrome was suspected. The above results were relayed to her daughter, Eleonora. She of course does not want to transfer to a higher level of care as per patient's goals of care. She is not able to swallow the aspirin and statin at this time. There is still interested in talking with the hospice team. I did speak with the hospice team, the family is interested in an informational prior to full admission to hospice. They can admit her as early as tomorrow at 3 PM. Current Medications Current Medications Current Medications: Current Medications Generic Name Dose Route Start Last Admin Trade Name Freq PRN Reason Stop Dose Admin Albuterol/Ipratropium 3 ml 09/28/24 23:28 Ipratropium/Albuterol 3 Ml Neb INH RTQ4H PRN Wheezing Aspirin 325 mg 09/29/24 09:00 10/01/24 10:07 Aspirin 325 Mg Tablet PO Not Given DAILY JEANNETTE Enoxaparin Sodium 80 mg 09/29/24 11:00 09/30/24 22:48 Enoxaparin 80 Mg/0.8 Ml Syringe SUBQ 80 mg Q12H JEANNETTE Administration Furosemide 40 mg 09/29/24 08:00 10/01/24 06:08 Furosemide 40 Mg/4 Ml Vial IVP 40 mg BIDDIURETIC JEANNETTE Administration Ceftriaxone Sodium 1 gm/ 100 mls @ 200 mls/hr 09/29/24 09:00 10/01/24 10:07 Sodium Chloride IV 200 mls/hr DAILY JEANNETTE Administration Azithromycin 500 mg/ Sodium 250 mls @ 250 mls/hr 09/29/24 09:00 10/01/24 10:06 Chloride IV 10/01/24 13:00 250 mls/hr DAILY JEANNETTE Administration Insulin Human Regular 1 - 5 unit 09/30/24 18:00 10/01/24 06:08 Insulin Regular, Human 300 Unit/3 Ml Pen SUBQ 3 unit Q6HR JEANNETTE Administration Protocol Ondansetron HCl 4 mg 09/28/24 23:16 Ondansetron 4 Mg/2 Ml Vial IVP Q6HR PRN Nausea / Vomiting Sodium Chloride 10 ml 09/28/24 23:16 09/30/24 06:33 Sodium Chloride Flush 0.9% 10 Ml Syringe IVP 10 ml PRN PRN Administration NEEDED PER PROVIDER ORDERS Sodium Chloride 10 ml 09/29/24 01:00 10/01/24 10:07 Sodium Chloride Flush 0.9% 10 Ml Syringe IVP 10 ml 0100,0900,1700 JEANNETTE Administration Objective Vital Signs/Intake & Output Reviewed Vital Signs: Yes Vital Signs: Vital Signs x48h Temp Pulse Resp BP Pulse Ox O2 Flow Rate 10/01/24 10:21 98.1 F 95 17 105/70 100 1 Intake & Output: Intake & Output 09/28/24 09/29/24 09/30/24 10/01/24 23:59 23:59 23:59 23:59 Intake Total 350 / 350 350 / 350 Output Total 1250 / 1250 2900 / 2900 1150 / 1150 Balance -900 / -900 -2550 / -2550 -1150 / -1150 Weight (kg) 79 kg 75 kg Objective General Appearance: positive Mild distress, Lethargic and Other (Patient is in mild respiratory distress, audible crackles and gurgling noted) Eyes Bilateral: positive Normal inspection and PERRL ENT: positive ENT inspection nml and Pharynx nml Neck: positive Nml inspection Respiratory: positive Chest non-tender and Rales (Diffuse crackles noted) Cardiovascular: positive Regular rate & rhythm, No murmur and No gallop Abdomen: positive Non-tender; negative Guarding, Hepatomegaly, Splenomegaly or Mass Back: positive Nml inspection; negative CVA tenderness (R) or CVA tenderness (L) Skin: positive Color nml, No rash, Warm and Dry Extremities: positive No pedal edema; negative Calf tenderness Neurologic/Psychiatric: positive Disoriented to person, Disoriented to place and Disoriented to time Lab Results 10/01/24 04:28 10/01/24 04:28 Other Labs: Lab Results x24hrs 10/01/24 10/01/24 10/01/24 Range/Units 05:56 04:28 00:12 WBC 13.0 H (4.8-10.8) x10^3/uL RBC 4.19 L (4.20-5.40) 10^6/uL Hgb 12.7 (12.0-16.0) g/dL Hct 41.1 (37.0-47.0) % MCV 98.1 (81.0-99.0) fL MCH 30.3 (27.0-31.0) pg MCHC 30.9 L (32.0-36.0) g/dL RDW 12.7 (12.0-15.0) % Plt Count 396 (130-450) 10^3/uL MPV 9.5 (7.9-10.8) fL Sodium 144 (135-145) mmol/L Potassium 3.7 (3.5-4.5) mmol/L Chloride 104 (101-111) mmol/L Carbon Dioxide 26 (21-32) mmol/L Anion Gap 14.0 H (6-13) BUN 20 (6-20) mg/dL Creatinine 0.5 L (0.6-1.3) mg/dL Estimated GFR (MDRD) 118 (>89) Glucose 264 H (74-104) mg/dL POC Whole Bld Glucose 251 215 (70-100) mg/dL Calcium 9.4 (8.5-10.3) mg/dL Magnesium 2.0 (1.7-2.3) mg/dL Troponin I High Sens 253.6 H* (2.3-14.8) ng/L 09/30/24 09/30/24 Range/Units 18:19 11:30 WBC (4.8-10.8) x10^3/uL RBC (4.20-5.40) 10^6/uL Hgb (12.0-16.0) g/dL Hct (37.0-47.0) % MCV (81.0-99.0) fL MCH (27.0-31.0) pg MCHC (32.0-36.0) g/dL RDW (12.0-15.0) % Plt Count (130-450) 10^3/uL MPV (7.9-10.8) fL Sodium (135-145) mmol/L Potassium (3.5-4.5) mmol/L Chloride (101-111) mmol/L Carbon Dioxide (21-32) mmol/L Anion Gap (6-13) BUN (6-20) mg/dL Creatinine (0.6-1.3) mg/dL Estimated GFR (MDRD) (>89) Glucose (74-104) mg/dL POC Whole Bld Glucose 222 209 (70-100) mg/dL Calcium (8.5-10.3) mg/dL Magnesium (1.7-2.3) mg/dL Troponin I High Sens (2.3-14.8) ng/L Diagnostic Imaging Diagnostic Imaging Results: positive Final report reviewed Assessment/Plan Problem List (1) Acute GA: Impression: Per ER documentation, EKG showed elevations in V1-V4. Decision Support Analyst on-call was spoken with, STEMI protocol was initiated. DPOA, daughter, stated that they did not want the patient to be transferred as per her goals of care, and wishes. Plan was treatment with subcu Lovenox, trending of the troponin, getting an ECHO here. Patient is still unable to swallow. Holding aspirin, lisinopril, beta-cande at this time. Discussion with patient's family about goals of care this morning with myself. They want medical managment without escalation of care, with a more comfort- based approach. They understand that she has had a GA, she may have heart failure, etc. They are interested in a Hospice informational. Hospice has been consulted. Qualifiers: Involved coronary artery: unspecified coronary artery Myocardial infarction type: ST elevation myocardial infarction Qualified Code(s): I21.3 - ST elevation (STEMI) myocardial infarction of unspecified site (2) Acute CVA (cerebrovascular accident): Impression: Spoke with the family about getting a CT scan of the head to complete workup as outlined below. CT head, CTA was done, and it did show a new infarction, subacute, involving the right temporal lobe. There is also potential occlusion of the right M2 branch, as well as 70 to 80% narrowing of the left common carotid artery. There is occlusion of the proximal left subclavian artery with poor flow within the left vertebral artery, subclavian steal syndrome was suspected. The above results were relayed to her daughter, Eleonora. She of course does not want to transfer to a higher level of care as per patient's goals of care. She is not able to swallow the aspirin and statin at this time. They are still interested in talking with the hospice team. Plan for informational today, with possible acceptance tomorrow. (3) Acute metabolic encephalopathy: Impression: Patient remains lethargic, altered. She is responsive to verbal stimuli. She is not following commands. Likely due to acute CVA as outlined above. (4) Severe chronic obstructive pulmonary disease: Impression: Continue oxygen. No active wheezing noted. Continue Rocephin, completed three days of azithromycin for possible community acquired pneumonia in setting of hypoxia, and leukocytosis. (5) UTI (urinary tract infection): Impression: Continue Rocephin. Qualifiers: Hematuria presence: without hematuria Urinary tract infection type: s ite unspecified Qualified Code(s): N39.0 - Urinary tract infection, site not specified (6) Hypertension: Impression: Hold antihypertensives. Qualifiers: Hypertension type: unspecified Qualified Code(s): I10 - Essential (primary) hypertension (7) DM2 (diabetes mellitus, type 2): Impression: On insulin in the outpatient. Currently not eating due to altered mentation. Continue to monitor. Qualifiers: Diabetes mellitus complication status: without complication Diabetes mellitus intermodal truck driver insulin use: unspecified alf insulin use status Q ualified Code(s): E11.9 - Type 2 diabetes mellitus without complications (8) Atrial fibrillation: Impression: Patient with episodes of paroxysmal atrial fibrillation noted on telemtery. Continue to monitor. Qualifiers: Atrial fibrillation type: paroxysmal Qualified Code(s): I48.0 - Paroxysmal atrial fibrillation
[2024-10-01] MEDS: INSULIN REGULAR, HUMAN 300 UNIT/3 ML PEN SUBQ SCH (12:22)
[2024-10-02 05:18] LABS: HCT - HEMATOCRIT 41.3 % (37.0-47.0); HGB - HEMOGLOBIN 13.1 g/dL (12.0-16.0); MEAN CORPUSCULAR HEMOGLOBIN 30.9 pg (27.0-31.0); MEAN CORPUSCULAR HGB CONC 31.7 g/dL (32.0-36.0); MEAN CORPUSCULAR VOLUME 97.4 fL (81.0-99.0); MEAN PLATELET VOLUME 9.4 fL (7.9-10.8); RED BLOOD COUNT 4.24 10^6/uL (4.20-5.40); RED CELL DISTRIBUTION WIDTH 12.8 % (12.0-15.0); WHITE BLOOD COUNT 13.2 x10^3/uL (4.8-10.8)
[2024-10-02 05:33] LABS: CALCIUM 9.8 mg/dL (8.5-10.3); CREATININE 0.5 mg/dL (0.6-1.3); POTASSIUM 3.4 mmol/L (3.5-4.5)
[2024-10-02 07:35] VITALS: BP 147/91; TEMP 98.1; O2SAT 96
[2024-10-02] MEDS: PIPERACILLIN/TAZOBACTAM 3.375 GM in SODIUM CHLORIDE 0.9% MINIBAG 100 ML IV SCH (09:15)
--- NOTE | 2024-10-02 11:23 | CONSULTATION NOTE ---
Hospice Consultation ([facility]) Hospice Consultation Hospice Consultation Note: 84 yo female with DM2, HLD, severe COPD, chronic hypoxic respiratory failure on 3lpm at [facility], mild cognitive impairment and HTN w/recent dx of human metapneumoviral pneumonia (09/25/24) who was admitted to the hospital w/STEMI, acute CHF, paroxysmal a fib and subacute L temporal CVA. Work-up of the CVA also revealed potential occlusion of the right M2 branch, as well as 70 to 80% narrowing of the left common carotid artery. There is occlusion of the proximal left subclavian artery with poor flow within the left vertebral artery, subclavian steal syndrome was suspected. She was empirically placed on Rocephin and azithro on 09/29 d/t leukocytosis in the setting of advanced COPD. UA was done as well which grew ESBL Klebsiella pneumonia. Pt has been less responsive since admission. Dtr has elected comfort directed care. Aura is being d/c'd to [facility] this afternoon. Pt is awake, but appears to have both receptive and expressive aphasia. She does not follow commands. Dtr, Eleonora, is at bedside. Additional family member vs. friend, Michael at bedside. Dtr expresses concern about how mom will take meds as she has been NPO since admit. Pt has refused toothettes. Dtr notes pt did reach for her water bottle yesterday. Dtr reports she was able to meet w/ director of home care hospice x 20 minutes yesterday and had all her questions answered. She is aware she can revoke hospice services if she chooses and if mom shows signs of improvement. She would like to move forward with admission this afternoon. PMH: As above Soc Hx: Former smoker, 35 yrs x 1 ppd, quit 1989 Pt resides at [facility] custodially Exam: T 36.7 HR 96 RR 18 BP 147/91 O2 sat 96% 3lpm Gen-elderly female, laying in bed, eyes open, somewhat restless at times, does not follow commands HEENT-NC, face symmetric, PERRL, EOMI, edentulous, will not open her mouth Chest-CTAB in anterior lung rudolph CV-RRR Abd-soft, NT/ND, BTx4 Extr-feet are cool, no edema Assessment: 1)STEMI 2)L temporal CVA w/apparent receptive and expressive aphasia 3) CHF 4) COPD 5) chronic hypoxic resp failure 6) ESBL Klebsiella pneumonia UTI Pt's dtr who is her POA has elected comfort directed care. Will plan admission to hospice services later today after pt returns to [facility]. Will have admitting director of home care hospice assess her swallow w/nectar thick liquids and trial pureed solids. Plan to give meds crushed in purees. Pt remains DNR/DNI.
--- NOTE | 2024-10-21 21:00 | Discharge Summary ---
"Discharge Summary Admit Date: 09/28/24 Discharge Date: 10/02/24 Discharging Provider: Elisha Stout MD Primary Care Provider: Nancy Lion MD Code Status: Do Not Attempt Resuscitation DIAGNOSES Discharge Diagnoses with Status of Each Condition: 1. Acute ST elevation CA 2. Acute cerebrovascular accident 3. Acute metabolic encephalopathy 4. Severe chronic obstructive pulmonary disease 5. UTI 6. Hypertension 7. Type 2 diabetes mellitus, controlled, on long-term insulin 8. Chronic atrial fibrillation HPI History of Present Illness: Patient is a 84-year-old female with a history of COPD on 3 L of oxygen at baseline, mild cognitive impairment, hyperlipidemia, hypertension who presented 09/27 from [facility] for worsening confusion. She was diagnosed with human metapneumovirus on the , and discharged back to [facility] with steroids and DuoNeb treatments. At [facility], she continued to decline, until she was brought in for altered mentation. ER documentation was reviewed: She was lethargic, and not speaking or responding. Troponin was done which was greater than 1000. EKG showed diffuse ST elevations in leads V1 through V4. This EKG has not been uploaded into the system, so I cannot review it further. However, ER documentation states that they spoke with toe puller Dr. Tejeda from [facility]. The DPOA was spoken with, and they did not want patient to be transferred for STEMI protocol, for PCI, etc. Plan was to treat medically with Lovenox. CONSULTS | PROCEDURES Procedures: 1. Chest x-ray with low lung volumes, no airspace consolidation or pleural effusion. 2. CT of the head head new abnormal low-density within the anterolateral aspect of the right temporal lobe. Attributed to subacute infarct. No hemorrhage. 3. CT angio of head and neck with a new infarction involving the right temporal lobe. Associated edema occlusion of the right M2 branch. 7080% narrowing involving the origin of the left common carotid artery. Occlusion of the proximal left subclavian artery with poor flow within the left vertebral artery. Subclavian steal syndrome suspected. 4. Blood cultures without growth after 5 days 5. Urine culture with ESBL producing Klebsiella pneumonia HOSPITAL COURSE Hospital Course: The patient initially was a little bit more responsive, turning her head towards her daughter. As such, they wanted to conservatively treat her without any heroic measures or escalation of care. We continued her therapeutic Lovenox, as well as antibiotics for her pneumonia and urinary tract infection. We d/c'd the scopolamine patch .. Spoke with the family about getting a CT scan of the head to complete workup for her altered mental status. CT head, CTA was done, and it did show a new infarction, subacute, involving the right temporal lobe. There is also potential occlusion of the right M2 branch, as well as 70 to 80% narrowing of the left common carotid artery. There is occlusion of the proximal left subclavian artery with poor flow within the left vertebral artery, subclavian steal syndrome was suspected. The above results were relayed to her daughter, Eleonora. She does not want to transfer to a higher level of care as per patient's goals of care. She is not able to swallow the aspirin and statin at this time. There were interested in talking with the hospice team. Patient was made comfort measures. Family spoke to the hospice team. And she was discharged to home in critical condition, poor prognosis. She was to be admitted to hospice the following morning. Comfort medications were ordered and sent to her pharmacy. ALLERGIES Allergies Allergy/AdvReac Type Severity Reaction Status Date / Time sulfamethoxazole (From AdvReac Severe Anaphylaxis Verified 09/28/24 18:45 Bactrim) trimethoprim (From Bactrim) AdvReac Severe Anaphylaxis Verified 09/28/24 18:45 MEDICATIONS Ambulatory Orders Medication Instructions Recorded Confirmed clopidogrel 75 mg tablet 75 mg PO DAILY 01/28/18 09/29/24 oxybutynin chloride 5 mg tablet 2.5 mg PO BID 01/28/18 09/29/24 ferrous sulfate 325 mg (65 mg 325 mg PO DAILY 02/22/24 09/29/24 iron) tablet,delayed release gabapentin 300 mg capsule 600 mg PO BID 02/22/24 09/29/24 insulin NPH-regular 70-30 U-100 25 units subcut QPM 02/22/24 09/29/24 insulin 100 unit/mL subcutaneous pen (Humulin 70/30 U-100 KwikPen) pantoprazole 40 mg tablet,delayed 40 mg PO DAILY 02/22/24 09/29/24 release atorvastatin 10 mg tablet 10 mg PO QPM 07/17/24 09/29/24 cholecalciferol (vitamin D3) 25 25 mcg PO DAILY 07/17/24 09/29/24 mcg (1,000 unit) capsule albuterol sulfate 90 mcg/actuation 1 inh inhalation QID PRN shortness 07/18/24 09/29/24 aerosol inhaler (Ventolin HFA) of breath or wheezing #8.5 grams calcium carbonate 600 mg PO DAILY 09/29/24 09/29/24 fluticasone fur. 100 mcg-umeclid 1 inh inhalation DAILY 09/29/24 09/29/24 62.5 mcg-vilant 25 mcg inhalat.powder (Trelegy Ellipta) folic acid 1 mg tablet 1 mg PO DAILY 09/29/24 09/29/24 guaifenesin 100 mg/5 mL oral liquid 200 mg PO Q4H PRN cough 09/29/24 09/29/24 insulin NPH-regular 70-30 U-100 27 unit subcut DAILY 09/29/24 09/29/24 insulin 100 unit/mL subcutaneous pen (Humulin 70/30 U-100 KwikPen) lisinopril 5 mg tablet 5 mg PO DAILY 09/29/24 09/29/24 vit C 250 mg-vit E 90 mg-zinc 40 2 tab PO DAILY 09/29/24 09/29/24 mg-copper 1 [id number] capsule (PreserVision AREDS-2) alprazolam 1 mg/mL oral 1 mg PO BID respiratory distress 10/02/24 concentrate (Alprazolam Intensol) #20 mL ciprofloxacin 250 mg/5 mL oral 250 mg (5 mL) PO BID #300 mL 10/02/24 suspension (Cipro) glycopyrrolate 1 mg tablet 1 mg PO TID secretions #90 tabs 10/02/24 (Robinul) morphine 20 mg/5 mL (4 mg/mL) oral 10 mg (2.5 mL) PO Q4H respiratory 10/02/24 solution distress #105 mL LABS 10/02/24 04:54 10/02/24 04:54 Discharge Plan Discharge Patient Disposition: 50 Hospice/Home DC/Xfer Condition: Poor Medically Cleared Date:: 10/02/24 Prescriptions: New ciprofloxacin [Cipro] 250 mg/5 mL suspension,microcapsule recon 250 mg PO BID Qty: 300 0RF morphine 20 mg/5 mL (4 mg/mL) solution 10 mg PO Q4H Qty: 105 0RF Alprazolam Intensol 1 mg/mL concentrate 1 mg PO BID Qty: 20 0RF glycopyrrolate [Robinul] 1 mg tablet 1 mg PO TID Qty: 90 2RF Continued clopidogrel 75 MG tablet 75 mg PO DAILY oxybutynin chloride 5 MG tablet 2.5 mg PO BID pantoprazole 40 MG tablet,delayed release (DR/EC) 40 mg PO DAILY gabapentin 300 MG capsule 600 mg PO BID ferrous sulfate 325 MG tablet,delayed release (DR/EC) 325 mg PO DAILY Humulin 70/30 U-100 KwikPen 100 UNIT/ML insulin pen 25 units subcut QPM atorvastatin 10 mg tablet 10 mg PO QPM cholecalciferol (vitamin D3) 25 mcg (1,000 unit) capsule 25 mcg PO DAILY albuterol sulfate [Ventolin HFA] 90 mcg/actuation HFA aerosol inhaler 1 inh inhalation QID PRN (Reason: shortness of breath or wheezing) Qty: 8.5 0RF Trelegy Ellipta 100-62.5-25 mcg blister with device 1 inh INHALATION DAILY lisinopril 5 mg tablet 5 mg PO DAILY Humulin 70/30 U-100 KwikPen 100 unit/mL (70-30) insulin pen 27 unit subcut DAILY calcium carbonate 600 mg calcium (1,500 mg) tablet 600 mg PO DAILY folic acid 1 mg tablet 1 mg PO DAILY PreserVision AREDS-2 250-90-40-1 mg capsule 2 tab PO DAILY guaifenesin 100 mg/5 mL liquid 200 mg PO Q4H PRN (Reason: cough) Activity Restrictions: Activity as Tolerated Diet: Regular Health Concerns: Brought to our emergency room by ambulance because of excessive sleepiness. You live at [facility] and you have been so sleepy you were not responding. You had already been diagnosed with an upper respiratory tract infection a few days prior and you were getting treatments. In the emergency room we found that you are having a heart attack. And on top of that you had pneumonia from Streptococcus secondary to influenza A. Urinary tract infection. Family and your advocates felt that it was time for you to transition to hospice care. We agree with that. Even if you did recover from this, you would not go back to your baseline. As such you are being discharged with medicines for completing antibiotics. On the day you were discharged you were identified as having a UTI ESBL bacteria. Discharge instructions: 1. You will be transition to hospice. 2. To help with respiratory distress new medications of morphine, Ativan (a sedative) and Robinul, were prescribed. Robinul helps with excessive secretions. 3. You will be opened up to hospice today at 4 PM. The certified medical aide is Dr. Yesenia Painter and she will become your new physician of record. Print Language: [place] Citizen Patient Instructions: Hospice Stand Alone Forms: SNF Discharge Follow-up Care: Nancy Lion MD [Provider Admit Priv/Credential] - Priscilla Felix MD [Primary Care Provider] -"
== END 2024-10-02 13:33 | disposition hospice, home (50) | DRG 280 ==
LOC: ED 18:31 → MS2 23:16
PROVIDERS: ADMIT Internal Medicine; ATTEND Internal Medicine
DX: I10 Essential (primary) hypertension; E78.5 Hyperlipidemia, unspecified; Z66 Do not resuscitate; I63.9 Cerebral infarction, unspecified; J15.4 Pneumonia due to other streptococci; G93.41 Metabolic encephalopathy; Z79.4 Long term (current) use of insulin; I11.0 Hypertensive heart disease with heart failure; I48.0 Paroxysmal atrial fibrillation; R47.01 Aphasia; I21.3 ST elevation (STEMI) myocardial infarction of unspecified site; J44.9 Chronic obstructive pulmonary disease, unspecified; Z87.891 Personal history of nicotine dependence; E11.9 Type 2 diabetes mellitus without complications; N39.0 Urinary tract infection, site not specified; J96.21 Acute and chronic respiratory failure with hypoxia; J10.08 Influenza due to other identified influenza virus with other specified pneumonia; I48.20 Chronic atrial fibrillation, unspecified; I50.9 Heart failure, unspecified; Z79.899 Other long term (current) drug therapy; N17.9 Acute kidney failure, unspecified; B96.1 Klebsiella pneumoniae [K. pneumoniae] as the cause of diseases classified elsewhere; Z51.5 Encounter for palliative care